=== PATIENT | male | born 1935 | race Caucasian/White ===

== ENCOUNTER → 2017-08-30 | Outpatient (CLI) | payer MEDICARE, BC ==
--- NOTE | 2017-09-01 08:17 | MR ---
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 FINDINGS: Diffusion weighted images demonstrate no evidence of a recent infarct or other diffusion ab normality. There is extensive confluent signal surrounding the ventricles as well as numerous areas diffusely th roughout the white matter bilaterally nonspecific pattern but most typical remote microvascular. Tiny areas of abnormal signal involving the basal ganglia may represent prominent Virchow-Je spaces ra ther than remote lacunar infarctions. Midline structures demonstrate normal morphology. The craniocervical junction appears within normal limits. Post contrast images demonstrate no abnormal enhancement. The dural venous sinuses appear pa tent. No cerebellopontine angle mass. No enhancing masses. Changes of chronic sinusitis noted. Nasal septal deviation noted. IMPRESSION: 1. No acute intracranial process. 2. Extensive degenerative and nonspecific white matter changes most typical of remote microvascular i schemia. 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 FINDINGS: The cranial cervical junction is preserved. There is no abnormal signal seen within the sp inal cord or paraspinal soft tissues. There is degenerative disc disease at all levels with most arpit ed findings at C5-6 and C6-C7. At C2-3 there is no disc herniation, canal stenosis or foraminal encroachment. At C3-4 there is hypertrophic change of the facets and uncovertebral joint. There is increased signal within the disc space and T1 and T2-weighted images likely benign. There is degenerative change of t he facets and uncovertebral joints with mild right-sided foraminal encroachment but no disc herniatio n or canal stenosis At C4-5 there is degenerative disc disease with facet arthropathy and uncovertebral joint hypertrophy and mild bilateral foraminal encroachment. No disc herniation or canal stenosis. At C5-6 there is severe degenerative disc disease with broad-based central disc herniation slightly g reater paracentrally the right resulting in anterior spinal cord compression. Moderate to severe righ t foraminal encroachment and mild left foraminal encroachment with uncovertebral joint hypertrophy an d facet arthropathy. At C6-7 there is central disc broad-based protrusion with moderate effacement of thecal sac but no sp inal cord contact. Facet arthropathy and uncovertebral joint projecting contribute to mild to moderat e bilateral foraminal encroachment. Severe degenerative disc disease. At C7-T1 there is uncovertebral joint hypertrophy. Disc bulging and hypertrophic changes greater far laterally the left with moderate left-sided foraminal encroachment.. IMPRESSION: 1. Multilevel severe degenerative disc disease with hypertrophic changes and disc protrusion or emmy iation C5-C6 resulting in spinal cord compression and significant bilateral foraminal encroachment. 2. Disc broad-based protrusion C6-C7 with moderate effacement of thecal sac and mild central stenosis but no evidence of cord compression. 3. Left lateral disc bulging and uncovertebral joint hypertrophy C7-T1 with moderate left-sided megan inal encroachment
== END | disposition home or self-care (01) ==
LOC: RADMRIMAIN 12:36
PROVIDERS: ATTEND Psychiatry & Neurology Neurology
DX: R90.82 White matter disease, unspecified (principal); M48.02 Spinal stenosis, cervical region; M50.223 Other cervical disc displacement at C6-C7 level; M50.321 Other cervical disc degeneration at C4-C5 level; M50.022 Cervical disc disorder at C5-C6 level with myelopathy
CPT/HCPCS: 70553; 72141; A9581

== ENCOUNTER 2017-10-06 22:35 | Observation (INO) | payer MEDICARE, BC ==
--- NOTE | 2017-10-06 23:06 | ED ---
General Adult HPI - General Chief complaint: Chest Pain Stated complaint: Chest pain Time Seen by Provider: 10/06/17 23:05 Source: patient Mode of arrival: wheelchair Limitations: no limitations - History of Present Illness Initial comments: Denzel is an 82-year-old male with a past medical history of retention, hyperlipidemia and a recent diagnosis of Parkinson's disease for which he was ordered on Sinemet. The patient presents to the emergency department today for evaluation of chest pain. Patient reports that around 10:30 PM he was sitting with his watching television when he suddenly developed a pressure in his chest, he describes it as a dull pressure in the retrosternal and left chest. He reports that the pain came on while he was sitting relaxing, it persisted for approximately 15 minutes and then over the course of one minute the pain resolved. The pain was not associated with any lightheadedness, diaphoresis, shortness of breath. The patient did not attempt to exert himself during the pain, however walking to the car and walking to the ER did not cause the pain. Patient reports that he has been in his usual state of health, he's been at his usual activity level, eating a normal diet. He has not been ill recently. He reports that his life is been pretty morning but these been feeling well. She is scheduled to follow-up with his neurologist tomorrow for reevaluation of the Sinemet. - Related Data Home Medications Medication Instructions Recorded Confirmed Hydrochlorothiazide [Hydrodiuril] 12.5 mg PO DAILY 12/25/15 10/06/17 Memantine [Namenda] 10 mg PO BID 12/25/15 10/06/17 Simvastatin [Zocor] 40 mg PO HS 12/25/15 10/06/17 Venlafaxine HCl ER [Effexor Xr] 75 mg PO HS 12/25/15 10/06/17 Esomeprazole Magnesium [NexIUM] 40 mg PO HS 01/23/16 10/06/17 Carbidopa-Levodopa 25-100 mg 1 tab PO QID 10/06/17 10/06/17 [Sinemet 25-100] Allergies Allergy/AdvReac Type Severity Reaction Status Date / Time No Known Allergies Allergy Verified 10/06/17 23:07 Review of Systems ROS Statement: Those systems with pertinent positive or pertinent negative responses have been documented in the HPI. ROS Other: All systems not noted in ROS Statement are negative. Constitutional: Denies: fever, chills Eyes: Denies: vision change ENT: Denies: throat pain Respiratory: Denies: cough, dyspnea, wheezes Cardiovascular: Reports: chest pain. Denies: palpitations, dyspnea on exertion , orthopnea, edema, syncope Endocrine: Denies: fatigue Gastrointestinal: Denies: abdominal pain, nausea, vomiting Musculoskeletal: Denies: back pain Skin: Denies: rash, lesions Neurological: Reports: other (Tremor in the left hand). Denies: headache, weakness Psychiatric: Denies: anxiety, depression Hematological/Lymphatic: Denies: easy bleeding, easy bruising Past Medical History Past Medical History: Hyperlipidemia, Osteoarthritis (OA) Additional Past Medical History / Comment(s): hiatal hernia, constipation, diverticulitis, occ rectal bleeding/blood in stool, parkinson's disease History of Any Multi-Drug Resistant Organisms: None Reported Past Surgical History: Bowel Resection, Hernia Repair, Prostate Surgery Additional Past Surgical History / Comment(s): 01/26/16 low anterior resection. Other surgical hx: EXC Sonu Cataracts. GLAUCOMA PROC. UMB HERNIA REPAIR 01/02/16. Past Anesthesia/Blood Transfusion Reactions: No Reported Reaction Past Psychological History: Depression Smoking Status: Former smoker Past Alcohol Use History: Occasional Past Drug Use History: None Reported - Past Family History Sister(s) History Unknown: Yes Family Medical History: Cancer Daughter(s) History Unknown: Yes Family Medical History: Cancer Father Family Medical History: No Reported History Additional Family Medical History / Comment(s): Father lived to be in his early 90's. General Exam Limitations: no limitations General appearance: alert, in no apparent distress Head exam: Present: atraumatic, normocephalic Eye exam: Present: normal appearance, PERRL ENT exam: Present: normal exam Neck exam: Present: normal inspection Respiratory exam: Present: normal lung sounds bilaterally Cardiovascular Exam: Present: normal rhythm, bradycardia GI/Abdominal exam: Present: soft. Absent: distended, pulsatile mass Rectal exam: Present: deferred Back exam: Present: normal inspection Neurological exam: Present: alert, oriented X3, other (tremor of hands) Psychiatric exam: Present: normal affect Skin exam: Present: warm, dry Course Vital Signs 10/06/17 10/06/17 10/07/17 22:43 23:00 00:17 Temperature 97.8 F Pulse Rate 42 L 48 L Pulse Rate [ 50 L Senior Care Assistant ] Respiratory 18 16 Rate Blood Pressure 159/78 167/81 O2 Sat by Pulse 97 98 Oximetry 10/07/17 01:14 Temperature Pulse Rate 49 L Pulse Rate [ Senior Care Assistant ] Respiratory 18 Rate Blood Pressure 158/78 O2 Sat by Pulse 97 Oximetry EKG Findings - EKG Comments: EKG Findings:: EKG at 2258, rate is 49, rhythm is sinus bradycardia with a first -degree AV block, there is a left axis deviation, FL is prolonged at 232, QTc are normal. No acute ST elevations or depressions. there is no evidence of acute ischemia or infarction. Medical Decision Making - Medical Decision Making The patient was seen and evaluated, history was obtained from the patient as well as his at bedside with no cardiac history presenting with 15 minutes of chest pressure with no associated symptoms EKG is sinus bradycardia, patient reports a history of bradycardia states that he was a runner when he was young and was always told his heart rate was very slow Blood pressure normal, Labs and imaging were ordered Chest x-ray with no acute findings Labs with the elevated CK-MB and troponin negative Heart score is 5, she has no establish cardiac care and I do feel he requires evaluation by cardiology for chest pain and bradycardia, patient is agreeable Patient placed in observation with telemetry monitoring and a consult to cardiology. - Lab Data Result diagrams: 10/06/17 23:10 10/06/17 23:10 Lab Results 10/06/17 10/06/17 10/06/17 Range/Units 23:10 23:10 23:10 WBC 6.3 (3.8-10.6) k/uL RBC 4.73 (4.30-5.90) m/uL Hgb 15.3 (13.0-17.5) gm/dL Hct 45.6 (39.0-53.0) % MCV 96.4 (80.0-100.0) fL MCH 32.2 (25.0-35.0) pg MCHC 33.4 (31.0-37.0) g/dL RDW 13.1 (11.5-15.5) % Plt Count 207 (150-450) k/uL Neutrophils % 62 % Lymphocytes % 23 % Monocytes % 9 % Eosinophils % 3 % Basophils % 1 % Neutrophils # 3.9 (1.3-7.7) k/uL Lymphocytes # 1.5 (1.0-4.8) k/uL Monocytes # 0.6 (0-1.0) k/uL Eosinophils # 0.2 (0-0.7) k/uL Basophils # 0.1 (0-0.2) k/uL PT (9.0-12.0) sec INR (<1.2) APTT (22.0-30.0) sec Sodium 139 (137-145) mmol/L Potassium 3.8 (3.5-5.1) mmol/L Chloride 102 (98-107) mmol/L Carbon Dioxide 30 (22-30) mmol/L Anion Gap 7 mmol/L BUN 16 (9-20) mg/dL Creatinine 1.10 (0.66-1.25) mg/dL Est GFR (CKD-EPI)AfAm 72 (>60 ml/min/1.73 sqM) Est GFR (CKD-EPI)NonAf 62 (>60 ml/min/1.73 sqM) Glucose 88 (74-99) mg/dL Calcium 9.5 (8.4-10.2) mg/dL Magnesium 2.0 (1.6-2.3) mg/dL Total Bilirubin 0.6 (0.2-1.3) mg/dL AST 32 (17-59) U/L ALT 27 (21-72) U/L Alkaline Phosphatase 69 (38-126) U/L Total Creatine Kinase 153 (55-170) U/L CK-MB (CK-2) 2.5 H* (0.0-2.4) ng/mL CK-MB (CK-2) Rel Index 1.6 Troponin I <0.012 (0.000-0.034) ng/mL Total Protein 6.7 (6.3-8.2) g/dL Albumin 4.1 (3.5-5.0) g/dL TSH 3.310 (0.465-4.680) mIU/L 10/06/17 Range/Units 23:10 WBC (3.8-10.6) k/uL RBC (4.30-5.90) m/uL Hgb (13.0-17.5) gm/dL Hct (39.0-53.0) % MCV (80.0-100.0) fL MCH (25.0-35.0) pg MCHC (31.0-37.0) g/dL RDW (11.5-15.5) % Plt Count (150-450) k/uL Neutrophils % % Lymphocytes % % Monocytes % % Eosinophils % % Basophils % % Neutrophils # (1.3-7.7) k/uL Lymphocytes # (1.0-4.8) k/uL Monocytes # (0-1.0) k/uL Eosinophils # (0-0.7) k/uL Basophils # (0-0.2) k/uL PT 10.5 (9.0-12.0) sec INR 1.1 (<1.2) APTT 23.8 (22.0-30.0) sec Sodium (137-145) mmol/L Potassium (3.5-5.1) mmol/L Chloride (98-107) mmol/L Carbon Dioxide (22-30) mmol/L Anion Gap mmol/L BUN (9-20) mg/dL Creatinine (0.66-1.25) mg/dL Est GFR (CKD-EPI)AfAm (>60 ml/min/1.73 sqM) Est GFR (CKD-EPI)NonAf (>60 ml/min/1.73 sqM) Glucose (74-99) mg/dL Calcium (8.4-10.2) mg/dL Magnesium (1.6-2.3) mg/dL Total Bilirubin (0.2-1.3) mg/dL AST (17-59) U/L ALT (21-72) U/L Alkaline Phosphatase (38-126) U/L Total Creatine Kinase (55-170) U/L CK-MB (CK-2) (0.0-2.4) ng/mL CK-MB (CK-2) Rel Index Troponin I (0.000-0.034) ng/mL Total Protein (6.3-8.2) g/dL Albumin (3.5-5.0) g/dL TSH (0.465-4.680) mIU/L Disposition Clinical Impression: Chest pain, Bradycardia Disposition: ADMITTED IP TO THIS [facility] Decision Time: 02:19
--- NOTE | 2017-10-06 23:36 | XR ---
EXAMINATION TYPE: XR chest 2V DATE OF EXAM: 10/06/2017 COMPARISON: NONE HISTORY: Chest pain TECHNIQUE: Frontal and lateral views of the chest are obtained. FINDINGS: There is no heart failure nor confluent pneumonic infiltrate. There is mild linear density at the lung bases. Heart size is normal. Thoracic aorta is atheromatous. IMPRESSION: Minimal scarring or subsegmental atelectasis at the lung bases. Normal heart.
[2017-10-06 23:41] LABS: INR 1.1 (<1.2); Partial Thromboplastin Time 23.8 sec (22.0-30.0); Prothrombin Time 10.5 sec (9.0-12.0)
[2017-10-06 23:42] LABS: Albumin 4.1 g/dL (3.5-5.0); Calcium 9.5 mg/dL (8.4-10.2); Potassium 3.8 mmol/L (3.5-5.1); Total Bilirubin 0.6 mg/dL (0.2-1.3); Total Protein 6.7 g/dL (6.3-8.2)
[2017-10-06 23:51] LABS: Creatine Kinase 153 U/L (55-170)
[2017-10-07 00:03] LABS: Basophils # (A) 0.1 k/uL (0-0.2); Basophils % (A) 1 %; Eosinophils # (A) 0.2 k/uL (0-0.7); Eosinophils % (A) 3 %; HCT 45.6 % (39.0-53.0); HGB 15.3 gm/dL (13.0-17.5); Lymphocytes # (A) 1.5 k/uL (1.0-4.8); Lymphocytes % (A) 23 %; MCH 32.2 pg (25.0-35.0); MCHC 33.4 g/dL (31.0-37.0); MCV 96.4 fL (80.0-100.0); Mean Platelet Volume 6.7; Monocytes # (A) 0.6 k/uL (0-1.0); Monocytes % (A) 9 %; Neutrophils # (A) 3.9 k/uL (1.3-7.7); Neutrophils % (A) 62 %; Platelet Count 207 k/uL (150-450); RBC 4.73 m/uL (4.30-5.90); RDW 13.1 % (11.5-15.5); Troponin I <0.012 ng/mL (0.000-0.034); WBC 6.3 k/uL (3.8-10.6)
[2017-10-07 00:07] LABS: Creatine Kinase MB 2.5 ng/mL (0.0-2.4)
[2017-10-07] MEDS ORDERED: NALOXONE 0.4 MG/ML 1 ML VIAL IV PRN (00:12)
--- NOTE | 2017-10-07 14:30 | P.HPIM ---
History of Present Illness This is a pleasant 82 years old male with past medical history of hyperlipidemia , osteoarthritis, hiatal hernia, dementia, constipation, diverticulitis, history of bleeding per rectum, and Parkinson disease, status post bowel resection who presents because of chest pain for 15 minutes in duration, which happened while the patient was watching TV yesterday. Its central chest pain nonradiating, pressure-like.not Associated with dyspnea and dizziness or change in urine or bowel habits. No fever Review of Systems CONSTITUTIONAL: No fever, no malaise, no fatigue. HEENT: No recent visual problems or hearing problems. Denied any sore throat. CARDIOVASCULAR: No orthopnea, PND, no palpitations, no syncope. PULMONARY: No shortness of breath, no cough, no hemoptysis. GASTROINTESTINAL: No diarrhea, no nausea, no vomiting, no abdominal pain. Normoactive bowel sounds. NEUROLOGICAL: No headaches, no weakness, no numbness. HEMATOLOGICAL: Denies any bleeding or petechiae. GENITOURINARY: Denies any burning micturition, frequency, or urgency. MUSCULOSKELETAL/RHEUMATOLOGICAL: Denies any joint pain, swelling, or any muscle pain. ENDOCRINE: Denies any polyuria or polydipsia. Past Medical History Past Medical History: Hyperlipidemia, Osteoarthritis (OA) Additional Past Medical History / Comment(s): hiatal hernia, constipation, diverticulitis, occ rectal bleeding/blood in stool, parkinson's disease History of Any Multi-Drug Resistant Organisms: None Reported Past Surgical History: Bowel Resection, Hernia Repair, Prostate Surgery Additional Past Surgical History / Comment(s): 01/26/16 low anterior resection. Other surgical hx: EXC Sonu Cataracts. GLAUCOMA PROC. UMB HERNIA REPAIR 01/02/16. Past Anesthesia/Blood Transfusion Reactions: No Reported Reaction Past Psychological History: Depression Smoking Status: Former smoker Past Alcohol Use History: Occasional Past Drug Use History: None Reported - Past Family History Sister(s) History Unknown: Yes Family Medical History: Cancer Daughter(s) History Unknown: Yes Family Medical History: Cancer Father Family Medical History: No Reported History Additional Family Medical History / Comment(s): Father lived to be in his early 90's. Medications and Allergies Home Medications Medication Instructions Recorded Confirmed Type Hydrochlorothiazide [Hydrodiuril] 12.5 mg PO DAILY 12/25/15 10/06/17 History Memantine [Namenda] 10 mg PO BID 10/03/16 07/16/18 History Simvastatin [Zocor] 40 mg PO HS 12/25/15 10/06/17 History Venlafaxine HCl ER [Effexor Xr] 75 mg PO HS 12/25/15 10/06/17 History Esomeprazole Magnesium [NexIUM] 40 mg PO HS 01/23/16 10/06/17 History Carbidopa-Levodopa 25-100 mg 1 tab PO QID 10/06/17 10/06/17 History [Sinemet 25-100] Allergies Allergy/AdvReac Type Severity Reaction Status Date / Time No Known Allergies Allergy Verified 10/06/17 23:07 Physical Exam Vitals: Vital Signs Temp Pulse Pulse Resp BP Pulse Ox 10/07/17 14:07 97.9 F 47 L 16 131/73 95 10/07/17 07:20 47 L 18 139/71 95 10/07/17 03:59 97.8 F 64 18 113/61 97 10/07/17 01:14 49 L 18 158/78 97 10/07/17 00:17 48 L 16 167/81 98 10/06/17 23:00 50 L 10/06/17 22:43 97.8 F 42 L 18 159/78 97 Intake and Output 10/06/17 10/07/17 10/07/17 22:59 06:59 14:59 Other: Weight 77.111 kg GENERAL: The patient is alert and oriented x3, not in any acute distress. Well developed, well nourished. HEENT: Pupils are round and equally reacting to light. EOMI. No scleral icterus. No conjunctival pallor. Normocephalic, atraumatic. No pharyngeal erythema. No thyromegaly. CARDIOVASCULAR: S1 and S2 present. No murmurs, rubs, or gallops. PULMONARY: Chest is clear to auscultation, no wheezing or crackles. ABDOMEN: Soft, nontender, nondistended, normoactive bowel sounds. No palpable organomegaly. MUSCULOSKELETAL: No joint swelling or deformity. EXTREMITIES: No cyanosis, clubbing, or pedal edema. NEUROLOGICAL: Gross neurological examination did not reveal any focal deficits. SKIN: No rashes. Results CBC & Chem 7: 10/06/17 23:10 10/06/17 23:10 Labs: Abnormal Lab Results - Last 24 Hours (Table) 10/06/17 Range/Units 23:10 CK-MB (CK-2) 2.5 H* (0.0-2.4) ng/mL Assessment and Plan Assessment: Chest pain syndrome, rule out coronary artery disease Parkinson disease Dementia Constipation Hypertension Hyperlipidemia Plan: Continue with the same treatment, continue symptom of treatment. Continue with aspirin which patient states is been taking for years now. Check echocardiogram and call cardiology consult. with DVT and GI prophylaxis. Further recommendation based on the clinical course
[2017-10-07] MEDS: ASPIRIN 81 MG PO SCH (18:52)
[2017-10-07] MEDS ORDERED: ATORVASTATIN 20 MG TAB PO SCH (21:00)
[2017-10-07] MEDS ORDERED: PANTOPRAZOLE 40 MG TABLET PO SCH (21:00)
[2017-10-07] MEDS ORDERED: VENLAFAXINE HCL ER 75 MG CAP PO SCH (21:00)
[2017-10-07] MEDS: HEPARIN SODIUM,PORCINE 5,000 UNIT/ML 1 ML VIAL SQ SCH (21:08)
[2017-10-07] MEDS: HYDROCHLOROTHIAZIDE 12.5 MG CAP PO SCH (21:08)
[2017-10-07] MEDS: FAMOTIDINE 20 MG/2 ML VIAL IV SCH (21:08)
[2017-10-07] MEDS: CARBIDOPA-LEVODOPA 25-100 MG 1 EACH TAB PO SCH ×2 (21:08→22:28)
[2017-10-07] MEDS: MEMANTINE 10 MG TAB PO SCH (21:08)
[2017-10-08 07:29] LABS: Basophils # (A) 0.1 k/uL (0-0.2); Basophils % (A) 1 %; Eosinophils # (A) 0.2 k/uL (0-0.7); Eosinophils % (A) 3 %; HCT 46.6 % (39.0-53.0); HGB 15.5 gm/dL (13.0-17.5); Lymphocytes # (A) 1.8 k/uL (1.0-4.8); Lymphocytes % (A) 29 %; MCH 32.7 pg (25.0-35.0); MCHC 33.3 g/dL (31.0-37.0); MCV 98.1 fL (80.0-100.0); Mean Platelet Volume 6.6; Monocytes # (A) 0.6 k/uL (0-1.0); Monocytes % (A) 10 %; Neutrophils # (A) 3.4 k/uL (1.3-7.7); Neutrophils % (A) 54 %; Platelet Count 183 k/uL (150-450); RBC 4.75 m/uL (4.30-5.90); RDW 13.5 % (11.5-15.5); WBC 6.3 k/uL (3.8-10.6)
[2017-10-08 07:46] LABS: Calcium 9.7 mg/dL (8.4-10.2); Potassium 3.9 mmol/L (3.5-5.1)
--- NOTE | 2017-10-08 09:54 | CONS ---
CONSULTATION Mr. Meng is an 82-year-old male patient who presented with abdominal pain. According to admitting physician's note, he had chest pain, but when I spoke to him he gave a clear history and pointed to a broad area in the mid abdomen. This was not associated with nausea, vomiting or diarrhea. He completely denied any chest discomfort or the pain spreading upwards into his chest, shoulders, arms, jaw. The pain lasted for about 10 minutes and has not recurred. REVIEW OF SYSTEMS: No fever, chills, or rigors. No cough or expectoration. No nausea, vomiting, or diarrhea. No hematuria or dysuria. No strokes or seizures. No skin lesions or musculoskeletal complaints. PAST HISTORY: Past history of dyslipidemia and osteoarthritis and Parkinson disease. History of rectal bleeding and bowel resection and prostate surgery. SOCIAL HISTORY: He is a former smoker. MEDICATIONS: Hydrochlorothiazide, Namenda, Zocor, carbidopa and Nexium. ALLERGIES: No known drug allergies. PHYSICAL EXAMINATION: His blood pressure upon admission was 131/73 mmHg, pulse rate in the 50s and 60s. Afebrile. Head and neck examination is normal. Heart sounds S1, S2 normal. No murmurs or gallops. No rub. Breath sounds are clear. No rhonchi, no crackles. Abdomen is soft, nontender. Extremities are warm, no edema. LABS: Labs are reviewed. Hemoglobin is normal. Electrolytes are normal. Cardiac enzymes x3 are normal. His 12-lead ECG shows sinus rhythm with a mildly prolonged KS interval, normal ST segments. IMPRESSION: Abdominal discomfort with normal cardiac enzymes and normal ECG. SUGGEST: A 2-D echo and Doppler study to assess cardiac structure and function and further medical management. Thereafter no further cardiac workup indicated at this point. He should continue hydrochlorothiazide and Zocor. Thank you for this consultation. MMODL / IJN: [id number] /
[2017-10-08] MEDS: ASPIRIN 81 MG PO SCH (10:16)
[2017-10-08] MEDS: CARBIDOPA-LEVODOPA 25-100 MG 1 EACH TAB PO SCH ×2 (10:16→14:31)
[2017-10-08] MEDS: HEPARIN SODIUM,PORCINE 5,000 UNIT/ML 1 ML VIAL SQ SCH (10:16)
[2017-10-08] MEDS: FAMOTIDINE 20 MG/2 ML VIAL IV SCH (10:17)
[2017-10-08] MEDS: MEMANTINE 10 MG TAB PO SCH (10:17)
[2017-10-08] MEDS: HYDROCHLOROTHIAZIDE 12.5 MG CAP PO SCH (10:17)
--- NOTE | 2017-10-08 16:06 | P.DS ---
Providers Date of admission: 10/07/17 00:14 Attending physician: Tawanda Moreno Consults: 10/07/17 00:13 Consult Physician Routine Consulting Provider: [facility] Consult Reason/Comments: chest pain, bradycardia Do you want consulting provider notified?: Yes, Notify in am [facility] Course: This is a pleasant 82 years old male with past medical history of hyperlipidemia , osteoarthritis, hiatal hernia, dementia, constipation, diverticulitis, history of bleeding per rectum, and Parkinson disease, status post bowel resection who presents because of chest pain for 15 minutes in duration, when I saw the patient yesterday in the emergency room he was pointing to his chest stated he has chest pain for 15 minutes, however today he is referring to his abdomen is seen in his abdomen pain was in his abdomen, then he was not sure if it was chest pain or abdominal pain. at bedside stated that yesterday he was sitting he had chest pain while today he is seen he had abdominal pain. However patient currently he denies neither chest pain no abdominal pain. And he denies pain anywhere else. No change in urine or bowel habits. No fever. No headache or abnormal weakness. Patient looks confused and history of dementia, comfort with his . He was a little bit disoriented when he was in the medical floor and he was wondering on the hallway, states he always does that because of his vascular dementia, whenever he goes to a hotel or similar facility, and that he will go back to his baseline once he is back to his home. thinks this situation is similar to his usual situation and she agrees he can be discharged home. Cardiology evaluated the patient and recommended to continue with the same treatment of hydrochlorothiazide and Zocor , he recommended an echo, however patient can be discharged and follow-up with the results with the cardiology office. Staff contacted the cardiology team office and they been informed that the office will call the patient for appointment in 2-3 weeks. at bedside was informed and she agrees. Patient was found stable and can be discharged home however he needs follow-up as an outpatient. Patient was instructed to call neck and appointment with his PCP in one week GENERAL: Patient looks confused to the surrounding, however he can make logic conversation. He is forgetful, not in any acute distress. Well developed, well nourished. HEENT: Pupils are round and equally reacting to light. EOMI. No scleral icterus. No conjunctival pallor. Normocephalic, atraumatic. No pharyngeal erythema. No thyromegaly. CARDIOVASCULAR: S1 and S2 present. No murmurs, rubs, or gallops. PULMONARY: Chest is clear to auscultation, no wheezing or crackles. ABDOMEN: Soft, nontender, nondistended, normoactive bowel sounds. No palpable organomegaly. MUSCULOSKELETAL: No joint swelling or deformity. EXTREMITIES: No cyanosis, clubbing, or pedal edema. NEUROLOGICAL: Gross neurological examination did not reveal any focal deficits. SKIN: No rashes. Time spent more than 35 minutes Plan - Discharge Summary Discharge Rx Participant: No New Discharge Prescriptions: No Action Memantine [Namenda] 10 mg PO BID Venlafaxine HCl ER [Effexor Xr] 75 mg PO HS Simvastatin [Zocor] 40 mg PO HS Hydrochlorothiazide [Hydrodiuril] 12.5 mg PO DAILY Esomeprazole Magnesium [NexIUM] 40 mg PO HS Carbidopa-Levodopa 25-100 mg [Sinemet 25-100] 1 tab PO QID Discharge Medication List Hydrochlorothiazide [Hydrodiuril] 12.5 mg PO DAILY 12/25/15 [History] Memantine [Namenda] 10 mg PO BID 12/25/15 [History] Simvastatin [Zocor] 40 mg PO HS 12/25/15 [History] Venlafaxine HCl ER [Effexor Xr] 75 mg PO HS 12/25/15 [History] Esomeprazole Magnesium [NexIUM] 40 mg PO HS 01/23/16 [History] Carbidopa-Levodopa 25-100 mg [Sinemet 25-100] 1 tab PO QID 10/06/17 [History] Follow up Appointment(s)/Referral(s): Jalen Tello MD [STAFF PHYSICIAN] - 2 Weeks (Office will call with an appointment) Geovanna Grigsby III, MD [Primary Care Provider] - 1-2 days
[2017-10-08 16:16] VITALS: BP 134/70; PULSE 47; RESP 18; TEMP 97.5
== END 2017-10-08 16:41 | disposition home or self-care (01) ==
LOC: EC 22:35 → 3OBS 10-07 00:14
PROVIDERS: ADMIT Hospitalist; ATTEND Hospitalist
DX: R07.89 Other chest pain (principal); R10.9 Unspecified abdominal pain; R00.1 Bradycardia, unspecified; I10 Essential (primary) hypertension; F01.50 Vascular dementia, unspecified severity, without behavioral disturbance, psychotic disturbance, mood disturbance, and anxiety; G20 Parkinson's disease; E78.5 Hyperlipidemia, unspecified; M19.90 Unspecified osteoarthritis, unspecified site; K59.00 Constipation, unspecified; K44.9 Diaphragmatic hernia without obstruction or gangrene; K57.90 Diverticulosis of intestine, part unspecified, without perforation or abscess without bleeding; F32.9 Major depressive disorder, single episode, unspecified; H40.9 Unspecified glaucoma; Z90.49 Acquired absence of other specified parts of digestive tract; Z98.41 Cataract extraction status, right eye; Z98.42 Cataract extraction status, left eye; Z87.891 Personal history of nicotine dependence; Z79.899 Other long term (current) drug therapy
CPT/HCPCS: 99285 ×2; 96372; 96374; 96376; 36415; 93005; 93306; 97161; 97165; 80053; 80048; 82550; 82553; 83735; 84443; 84484 ×2; 85025 ×2; 85610; 85730; 71046; G0378 ×2; J1644

== ENCOUNTER 2017-11-04 13:59 | Day surgery (SDC) | payer MEDICARE, BC ==
[2017-10-29 10:43] VITALS: BMI 26.9
[~2017-11-04 13:59] MED LIST: SODIUM CHLORIDE 0.9% 1,000 ML IV SCH; ceFAZolin IN SWFI 2 GM/20 ML SYRINGE IVP ONE
[2017-11-04] MEDS ORDERED: SODIUM CHLORIDE 0.9% 500 ML IV ONE (14:27)
[2017-11-04 14:39] VITALS: RESP 16; TEMP 98.3
[2017-11-04] MEDS ORDERED: fentaNYL (PF) 50 MCG/ML 2 ML AMP IV ONE (15:03)
[2017-11-04] MEDS ORDERED: LIDOCAINE 1% INJ 10MG/ML (20 ML MDV) SQ ONE (15:05)
--- NOTE | 2017-11-04 15:23 | P.PCN ---
Preoperative Diagnosis: Loop monitor implant Primary physicians: Dr. Grigsby Percolator Operator: Geovanny Indication: Bradycardia prolonged NH interval, dizzy spells recurrent Patient was brought to the EP lab in a fasting state. Written informed consent was obtained prior to the procedure. The left pectoral area was prepped and draped per protocol. Intravenous antibiotic was administered preoperatively. A subcutaneous Loop monitor was implanted successfully and the wound was closed per protocol. The device was programmed to detect significant norberto- arrhythmic and tachy-arrhythmic events, per protocol. Device and programming details: Bradycardia protocol Patient underwent EP procedure under conscious sedation/moderate sedation, monitoring of the level of consciousness and physiologic parameters including but not limited to vital signs and oxygenation. Patient tolerated the procedure well without any acute complications. Start time: 1504 Stop time: 1512 8 minutes Condition: stable Disposition: same day
[2017-11-04 16:33] VITALS: BP 126/82; PULSE 54
== END 2017-11-04 16:33 | disposition home or self-care (01) ==
LOC: CATHEP 13:59
PROVIDERS: ATTEND Internal Medicine Clinical Cardiac Electrophysiology
DX: I49.5 Sick sinus syndrome (principal); I44.0 Atrioventricular block, first degree; I10 Essential (primary) hypertension; E78.5 Hyperlipidemia, unspecified; I25.10 Atherosclerotic heart disease of native coronary artery without angina pectoris; F17.210 Nicotine dependence, cigarettes, uncomplicated; Z82.49 Family history of ischemic heart disease and other diseases of the circulatory system; Z79.82 Long term (current) use of aspirin; Z79.899 Other long term (current) drug therapy
CPT/HCPCS: 33282; C1764; J2001; J3010; J0690

== ENCOUNTER → 2017-12-11 | Outpatient (CLI) | payer MEDICARE, BC ==
[2017-12-11 12:13] LABS: HCT 45.1 % (39.0-53.0); HGB 14.6 gm/dL (13.0-17.5); MCH 32.2 pg (25.0-35.0); MCHC 32.4 g/dL (31.0-37.0); MCV 99.5 fL (80.0-100.0); Mean Platelet Volume 6.8; Platelet Count 206 k/uL (150-450); RBC 4.54 m/uL (4.30-5.90); WBC 5.5 k/uL (3.8-10.6)
[2017-12-12 11:24] LABS: Albumin 3.8 g/dL (3.5-5.0); Calcium 9.4 mg/dL (8.4-10.2); Total Bilirubin 1.1 mg/dL (0.2-1.3)
== END ==
LOC: LABPAT 11:28
PROVIDERS: ATTEND Internal Medicine Clinical Cardiac Electrophysiology
DX: Z01.812 Encounter for preprocedural laboratory examination (principal); I44.0 Atrioventricular block, first degree; I49.5 Sick sinus syndrome
CPT/HCPCS: 36415; 80051; 80053; 82565; 82947; 84443; 84520; 85027

== ENCOUNTER 2017-12-22 11:41 | Day surgery (SDC) | payer MEDICARE, BC ==
[2017-12-16 15:35] VITALS: BMI 26.5
[~2017-12-22 11:41] MED LIST changes: +HYDROmorphone 1 MG/ML 1 ML SYRINGE IVP PRN; +LACTATED RINGERS 1,000 ML IV SCH; +MIDAZOLAM 2 MG/2 ML VIAL IV PRN; +ceFAZolin 1,000 MG in SODIUM CHLORIDE 0.9% IRRIGATIO 250 ML IRRIGATION ONE
[2017-12-22] MEDS ORDERED: diphenhydrAMINE 50 MG/ML 1 ML VIAL ONE (12:32)
[2017-12-22] MEDS ORDERED: MIDAZOLAM 2 MG/2 ML VIAL ONE (12:32)
[2017-12-22] MEDS ORDERED: PROPOFOL 10 MG/ML 20 ML VIAL IV ONE (12:32)
[2017-12-22] MEDS ORDERED: fentaNYL (PF) 50 MCG/ML 2 ML AMP ONE (12:32)
[2017-12-22] MEDS ORDERED: hydrALAZINE HCL 20 MG/ML 1 ML VIAL ONE (12:32)
[2017-12-22] MEDS ORDERED: SODIUM CHLORIDE 0.9% 500 ML IV ONE (12:46)
[2017-12-22] MEDS ORDERED: IV FLUID CONTINUATION 900 ML IV ONE (12:46)
[2017-12-22] MEDS ORDERED: IOPAMIDOL-250 50ML BTL IV ONE (12:58)
[2017-12-22] MEDS ORDERED: LIDOCAINE 1% INJ 10MG/ML (20 ML MDV) ONE ×2 (13:12)
[2017-12-22] MEDS ORDERED: LIDOCAINE 1% INJ 10MG/ML (20 ML MDV) SQ ONE ×2 (13:17→13:18)
[2017-12-22] MEDS ORDERED: ACETAMINOPHEN TAB 325 MG TAB PO PRN (15:03)
[2017-12-22] MEDS ORDERED: HYDROcodone/APAP 5-325MG 1 EACH TAB PO PRN (15:03)
[2017-12-22] MEDS ORDERED: ACETAMINOPHEN IV (For NPO) 1,000 MG in EMPTY BAG 1 BAG IVPB ONE (16:15)
[2017-12-22] MEDS: ceFAZolin IN SWFI 2 GM/20 ML SYRINGE IVP SCH (18:25)
--- NOTE | 2017-12-22 19:43 | PCN ---
PROCEDURE NOTE Mr. Meng is an 82-year-old male patient who has dizziness and presyncope, very symptomatic with associated and documented sick sinus syndrome, AV node disease and bradycardia and pauses. This was documented on a loop monitor. He is brought in for AV sequential permanent pacing with septal physiologic pacing and removal of loop monitor. Patient was brought to the EP lab in a fasting state. Written informed consent was obtained prior to the procedure. The procedure performed with CHEMICAL STRENGTH TESTER assistance. The left pectoral area was prepped and draped as per protocol. 1% lidocaine was used for local anesthesia. A 4 cm incision was made parallel to the deltopectoral groove, about 1.5 cm medial to it. The incision was carried down to the level of the pectoralis muscle. Three venous sheaths were placed in the left axillary vein and via these 3 were positioned in the right heart. The RV lead was a Medtronic model #5076, 58 cm in length and serial number [id number], screwed in the mid RV septum. Current of protocol was followed. Pacing threshold 0.4 V at 0.5 milliseconds. Pacing impedance of 905 ohms. R-waves 9.1 mV. 10 V test negative. The right atrial lead was a Medtronic model #4574, 45 cm in length and serial number [id number]. This was positioned in the right atrial appendage. This was a passive lead. Pacing threshold 0.4 V at 0.5 milliseconds. Pacing impedance of 846 ohms, P waves 3.1 mV. The third lead was screwed in after mapping His bundle area and was screwed in. Selective pacing was noted and the thresholds were excellent at 0.4 V at 0.5 milliseconds. Pacing impedance of 625 ohms. All sheaths were removed. The leads were stable. The leads were then secured to the underlying pectoralis muscles and then connected to the biventricular pacemaker Medtronic POT ROOM SUPERVISOR-P July MRI, model #W1TR02, serial number [id number]. The leads and generator were then placed in subfascial pocket and the wound was closed in 3 layers and dressed per protocol. RESULT: Successful AV sequential physiologic septal pacing performed for symptomatic bradycardia. The device was then programmed to DDDR mode with an AV delay of 480 milliseconds (Patient's HV interval was 38 milliseconds and stem to QRS during selective pacing was 41 milliseconds). Backup RV pacing was programmed. Patient tolerated the procedure well without any acute complications. Please see explantation of the Reveal monitor dictation separately. MMODL / IJN: [id number] /
--- NOTE | 2017-12-22 19:49 | LTR ---
December 22, [address] Grigsby: I had the pleasure of seeing Denzel Meng in electrophysiology followup. Denzel underwent a permanent pacing for sick sinus syndrome and AV node disease. He has His bundle pacemaker to avoid RV pacing which could precipitate heart failure in the future. The His bundle pacing lead has extremely good thresholds. He will continue to follow up with you and we will see me again in the Device Clinic per scheduled. No changes in his medications have been made at this time. Thank you for entrusting me with the care of your patient. Warm regards. Sincerely, CLARA / GILBERTN: [id number] /
[2017-12-22] MEDS: MEMANTINE 10 MG TAB PO SCH (20:04)
[2017-12-22] MEDS ORDERED: ASPIRIN 81 MG PO SCH (21:00)
[2017-12-22] MEDS ORDERED: VENLAFAXINE HCL ER 75 MG CAP PO SCH (21:00)
[2017-12-23] MEDS: ceFAZolin IN SWFI 2 GM/20 ML SYRINGE IVP SCH ×3 (00:44→13:13)
[2017-12-23 07:48] VITALS: PULSE 55; RESP 18
--- NOTE | 2017-12-23 08:36 | XR ---
EXAMINATION TYPE: XR chest 2V DATE OF EXAM: 12/23/2017 COMPARISON: 10/06/2017 TECHNIQUE: PA and lateral views submitted. HISTORY: Lead placement check FINDINGS: Ectasia of the aorta with atherosclerotic changes. There is a multilead pacemaker. No sizable pneumot horax. No overt failure. Subsegmental changes at the lung bases appear chronic likely related atelect asis. Hypertrophic and degenerative changes of the spine. IMPRESSION: 1. Pacemaker placement
[2017-12-23] MEDS: MEMANTINE 10 MG TAB PO SCH (08:57)
[2017-12-23] MEDS ORDERED: ATORVASTATIN 40 MG TAB PO SCH (09:00)
[2017-12-23] MEDS ORDERED: CARBIDOPA-LEVODOPA 25-100 MG 1 EACH TAB PO SCH (09:00)
[2017-12-23] MEDS ORDERED: HYDROCHLOROTHIAZIDE 12.5 MG CAP PO SCH (09:00)
[2017-12-23 11:34] VITALS: BP 148/85; TEMP 98.3
--- NOTE | 2017-12-23 13:32 | P.DS ---
Providers Attending physician: Jalen Tello Primary care physician: [facility] Course: Patient is doing well. There is a very small hematoma at the pacemaker site with mild bruising no pain Breath sounds are clear Heart sounds are normal Abdomen soft No edema over the extremities Impression Symptomatic sick sinus syndrome and AV node disease status post AV sequential pacing with physiologic septal pacing/biventricular pacemaker device Plan Discharge home after completion of IV antibiotics and follow Dr. Small end 2- 3 months and follow-up in the device clinic in 5 days Plan - Discharge Summary Discharge Rx Participant: Yes New Discharge Prescriptions: Continue Memantine [Namenda] 10 mg PO BID Venlafaxine HCl ER [Effexor XR] 75 mg PO HS Esomeprazole Magnesium [NexIUM] 40 mg PO HS Carbidopa-Levodopa 25-100 mg [Sinemet 25-100 mg] 2 tab PO 0900,1400 Atorvastatin [Lipitor] 40 mg PO DAILY Hydrochlorothiazide 12.5 mg PO DAILY Aspirin 81 mg PO HS Discharge Medication List Memantine [Namenda] 10 mg PO BID 12/25/15 [History] Venlafaxine HCl ER [Effexor XR] 75 mg PO HS 12/25/15 [History] Esomeprazole Magnesium [NexIUM] 40 mg PO HS 01/23/16 [History] Carbidopa-Levodopa 25-100 mg [Sinemet 25-100 mg] 2 tab PO 0900,1400 10/06/17 [ History] Atorvastatin [Lipitor] 40 mg PO DAILY 10/29/17 [History] Hydrochlorothiazide 12.5 mg PO DAILY 10/29/17 [History] Aspirin 81 mg PO HS 11/04/17 [History] Follow up Appointment(s)/Referral(s): Jalen Tello MD [STAFF PHYSICIAN] - 1 Week (Appointment made for device check on Jan.01 at 2:30pm. Office will call with follow up appointment.) Patient Instructions/Handouts: Pacemaker (GEN) Activity/Diet/Wound Care/Special Instructions: PATIENT EDUCATION MATERIAL Instructions following a heart rhythm device implant. 1. Keep dressing DRY for 5 DAYS. You may cover the area with Saran or Cling Wrap, prior to a shower. 2. The dressing will be removed in the Device Clinic at [facility]. Absorbable sutures were used to close the wound. 3. Avoid raising the left arm above the shoulder level. 4 week restriction 4. Avoid arm movements, like backscratching, rubbing the head, or pulling on a cord. 4 weeks restriction 5. Gentle range of motion movements of the shoulder, closest to the incision should be performed to avoid a frozen shoulder. (Pendulum exercises of the shoulder) 6. The opposite arm may be used freely. 7. Avoid driving for 7 days. 8. Avoid activities such as golfing, swimming, weed whacking, lifting more than 10 pounds weight, bowling, gymnastics and weight training/lifting. (6 weeks restriction) 9. Activities such as wood chopping with an axe, pull-ups in the gymnasium, power lifting, arc-welding, being close to home induction cooktops will always be a problem. 10. Arm sling is only a reminder not to raise the arm above the head. You do not need to keep the arm completely immobilized. Your free to move the arm and use it and for normal activities. In case of any problems, please call [facility], [place], @ [phone], Attention: Device Clinic Device clinic follow-up in 5 days Follow-up with primary plug wirer in 2-3 months Discharge Disposition: HOME SELF-CARE
--- NOTE | 2017-12-24 08:46 | P.PCN ---
Preoperative Diagnosis: Loop explant under MAC Patient was brought to the EP lab in a fasting state. Written informed consent was obtained prior to the procedure. The subcutaneous device was successfully explanted under local anesthesia. Preoperative antibiotics were administered. The wound was closed in layers and dressed per protocol. Result: Successful loop monitor explantation.
== END 2017-12-23 14:35 | disposition home or self-care (01) ==
LOC: CATHEP 11:41 → 3OBS 14:55 → CATHEP 12-23 14:35
PROVIDERS: ATTEND Internal Medicine Clinical Cardiac Electrophysiology
DX: I49.5 Sick sinus syndrome (principal); I10 Essential (primary) hypertension; E78.5 Hyperlipidemia, unspecified; I44.0 Atrioventricular block, first degree; I25.10 Atherosclerotic heart disease of native coronary artery without angina pectoris; G20 Parkinson's disease; K21.9 Gastro-esophageal reflux disease without esophagitis; Z79.82 Long term (current) use of aspirin; Z79.899 Other long term (current) drug therapy; Z82.49 Family history of ischemic heart disease and other diseases of the circulatory system
CPT/HCPCS: 33225; 33208; 33284; 71046; C1769 ×4; C1892; C1898 ×2; C2621; J2001; J0131; J0690 ×2; Q9966

== ENCOUNTER → 2019-08-23 | Outpatient (CLI) | payer MEDICARE, BC ==
[2019-08-23 14:39] LABS: Appearance,Urine Clear (Clear); Basophils # (A) 0.1 k/uL (0-0.2); Basophils % (A) 1 %; Bilirubin,Urine Negative (Negative); Blood,Urine Negative (Negative); Color,Urine Yellow; Eosinophils # (A) 0.2 k/uL (0-0.7); Eosinophils % (A) 4 %; Glucose,Urine (UA) Negative (Negative); HGB 15.3 gm/dL (13.0-17.5); Ketones,Urine Negative (Negative); Leukocyte Esterase,Urine Negative (Negative); Lymphocytes # (A) 1.5 k/uL (1.0-4.8); Lymphocytes % (A) 27 %; MCH 34.3 pg (25.0-35.0); MCHC 33.3 g/dL (31.0-37.0); MCV 102.8 fL (80.0-100.0); Macrocytosis Slight; Mean Platelet Volume 7.3; Monocytes # (A) 0.5 k/uL (0-1.0); Monocytes % (A) 9 %; Neutrophils # (A) 3.2 k/uL (1.3-7.7); Neutrophils % (A) 58 %; Nitrite,Urine Negative (Negative); Platelet Count 207 k/uL (150-450); Protein,Urine Negative (Negative); RBC 4.47 m/uL (4.30-5.90); RDW 13.2 % (11.5-15.5); Urobilinogen,Urine <2.0 mg/dL (<2.0); WBC 5.5 k/uL (3.8-10.6)
[2019-08-23 20:35] LABS: Albumin 4.3 g/dL (3.80-4.90); Albumin/Globulin Ratio 2.05 (1.60-3.17); BUN/Creat Ratio 18.33 Ratio (12.00-20.00); Calcium 9.3 mg/dL (8.7-10.3); Globulin 2.1 g/dL (1.6-3.3); Non-African American GFR(CKD) 55.2 (60.0-200.0); Total Bilirubin 0.9 mg/dL (0.2-1.2); Total Protein 6.4 g/dL (6.2-8.2)
== END | disposition home or self-care (01) ==
LOC: LABWHC1 13:45
PROVIDERS: ATTEND Psychiatry & Neurology Neurology
DX: R41.0 Disorientation, unspecified (principal); G20 Parkinson's disease
CPT/HCPCS: 36415; 80053; 81003; 85025; 87086

== ENCOUNTER 2019-11-04 19:44 | Observation (INO) | payer MEDICARE, BC ==
[2019-11-04] MEDS ORDERED: SODIUM CHLORIDE 0.9% 1,000 ML IV STA (20:15)
--- NOTE | 2019-11-04 20:16 | ED ---
Neuro HPI - General Chief Complaint: Neuro Symptoms/Deficit Stated Complaint: Sent from primary - possible TIA Time Seen by Provider: 11/04/19 19:51 Source: patient, family, RN notes reviewed, old records reviewed Mode of arrival: wheelchair Limitations: no limitations - History of Present Illness Is the patient presenting with stroke symptoms?: No -: minutes(s) Initial Comments: This is a 84-year-old male DF for evaluation of several from some mild dementia so his history of present illness and colitis due to history is limited. Patient without complaint currently he did have an episode of slurred speech with weakness which was noted at that her there also was some facial droop left- sided. Patient's is at bedside he states symptoms resolved pretty quickly and again the patient has not baseline Location: speech, left face, altered, other (All symptoms resolved) History of same: No Place: home Severity: moderate Improves With: time Worsens With: none On Anticoagulants: No Associated Symptoms: confusion, malaise Treatments Prior to Arrival: none - Related Data Home Medications: Home Medications Medication Instructions Recorded Confirmed Memantine [Namenda] 10 mg PO BID@999,199912/25/15 11/04/19 Venlafaxine HCl ER [Effexor XR] 75 mg PO HS@199912/25/15 11/04/19 Esomeprazole Magnesium [NexIUM] 40 mg PO HS@199901/23/16 11/04/19 Carbidopa-Levodopa 25-100 mg 2 tab PO BID@1000,1400 10/06/17 11/04/19 [Sinemet 25-100 mg] Atorvastatin [Lipitor] 40 mg PO HS@199910/29/17 11/04/19 Hydrochlorothiazide 12.5 mg PO DAILY@1000 10/29/17 11/04/19 [hydroCHLOROthiazide] Aspirin 81 mg PO HS@199911/04/17 11/04/19 QUEtiapine FUMARATE [SEROquel] 25 mg PO HS@199911/04/19 11/04/19 Allergies/Adverse Reactions: Allergies Allergy/AdvReac Type Severity Reaction Status Date / Time No Known Allergies Allergy Verified 11/04/19 22:09 Review of Systems ROS Statement: Those systems with pertinent positive or pertinent negative responses have been documented in the HPI. ROS Other: All systems not noted in ROS Statement are negative. General Exam Limitations: no limitations General appearance: alert, in no apparent distress Head exam: Present: atraumatic, normocephalic, normal inspection Eye exam: Present: normal appearance, PERRL, EOMI. Absent: scleral icterus, conjunctival injection, periorbital swelling ENT exam: Present: normal exam, mucous membranes moist Neck exam: Present: normal inspection. Absent: tenderness, meningismus, lymphadenopathy Respiratory exam: Present: normal lung sounds bilaterally. Absent: respiratory distress, wheezes, rales, rhonchi, stridor Cardiovascular Exam: Present: regular rate, normal rhythm, normal heart sounds. Absent: systolic murmur, diastolic murmur, rubs, gallop, clicks GI/Abdominal exam: Present: soft, normal bowel sounds. Absent: distended, tenderness, guarding, rebound, rigid Extremities exam: Present: normal inspection, full ROM, normal capillary refill. Absent: tenderness, pedal edema, joint swelling, calf tenderness Back exam: Present: normal inspection Neurological exam: Present: alert, oriented X3, CN II-XII intact Psychiatric exam: Present: normal affect, normal mood Skin exam: Present: warm, dry, intact, normal color. Absent: rash Stroke MDM - Lab Data Result diagrams: 11/04/19 20:24 11/04/19 20:24 Lab Results 11/04/19 11/04/19 11/04/19 Range/Units 20:24 20:24 20:24 WBC 6.5 (3.8-10.6) k/uL RBC 4.70 (4.30-5.90) m/uL Hgb 14.7 (13.0-17.5) gm/dL Hct 46.6 (39.0-53.0) % MCV 99.0 (80.0-100.0) fL MCH 31.2 (25.0-35.0) pg MCHC 31.5 (31.0-37.0) g/dL RDW 12.9 (11.5-15.5) % Plt Count 193 (150-450) k/uL Neutrophils % 58 % Lymphocytes % 25 % Monocytes % 9 % Eosinophils % 3 % Basophils % 1 % Neutrophils # 3.8 (1.3-7.7) k/uL Lymphocytes # 1.6 (1.0-4.8) k/uL Monocytes # 0.6 (0-1.0) k/uL Eosinophils # 0.2 (0-0.7) k/uL Basophils # 0.1 (0-0.2) k/uL PT 10.6 (9.0-12.0) sec INR 1.0 (<1.2) APTT 23.8 (22.0-30.0) sec Sodium 138 (137-145) mmol/L Potassium 4.0 (3.5-5.1) mmol/L Chloride 103 (98-107) mmol/L Carbon Dioxide 27 (22-30) mmol/L Anion Gap 8 mmol/L BUN 19 (9-20) mg/dL Creatinine 1.34 H (0.66-1.25) mg/dL Est GFR (CKD-EPI)AfAm 56 (>60 ml/min/1.73 sqM) Est GFR (CKD-EPI)NonAf 48 (>60 ml/min/1.73 sqM) Glucose 67 L (74-99) mg/dL Calcium 10.1 (8.4-10.2) mg/dL Total Bilirubin 1.1 (0.2-1.3) mg/dL AST 34 (17-59) U/L ALT 8 (4-49) U/L Alkaline Phosphatase 82 (38-126) U/L Creatine Kinase 106 (55-170) U/L Troponin I (0.000-0.034) ng/mL Total Protein 7.2 (6.3-8.2) g/dL Albumin 4.4 (3.5-5.0) g/dL 11/04/19 Range/Units 20:24 WBC (3.8-10.6) k/uL RBC (4.30-5.90) m/uL Hgb (13.0-17.5) gm/dL Hct (39.0-53.0) % MCV (80.0-100.0) fL MCH (25.0-35.0) pg MCHC (31.0-37.0) g/dL RDW (11.5-15.5) % Plt Count (150-450) k/uL Neutrophils % % Lymphocytes % % Monocytes % % Eosinophils % % Basophils % % Neutrophils # (1.3-7.7) k/uL Lymphocytes # (1.0-4.8) k/uL Monocytes # (0-1.0) k/uL Eosinophils # (0-0.7) k/uL Basophils # (0-0.2) k/uL PT (9.0-12.0) sec INR (<1.2) APTT (22.0-30.0) sec Sodium (137-145) mmol/L Potassium (3.5-5.1) mmol/L Chloride (98-107) mmol/L Carbon Dioxide (22-30) mmol/L Anion Gap mmol/L BUN (9-20) mg/dL Creatinine (0.66-1.25) mg/dL Est GFR (CKD-EPI)AfAm (>60 ml/min/1.73 sqM) Est GFR (CKD-EPI)NonAf (>60 ml/min/1.73 sqM) Glucose (74-99) mg/dL Calcium (8.4-10.2) mg/dL Total Bilirubin (0.2-1.3) mg/dL AST (17-59) U/L ALT (4-49) U/L Alkaline Phosphatase (38-126) U/L Creatine Kinase (55-170) U/L Troponin I <0.012 (0.000-0.034) ng/mL Total Protein (6.3-8.2) g/dL Albumin (3.5-5.0) g/dL - NIH Stroke Scale 1a. Level of Consciousness: (0) alert 1b. LOC Questions: (0) answers correctly 1c. LOC Commands: (0) performs tasks correctly 2. Best Gaze: (0) normal 3. Visual: (0) no visual loss 4. Facial Palsy: (0) normal symmetrical movement 5a. Motor Arm Left: (0) no drift 5b. Motor Arm Right: (0) no drift 6a. Motor Leg Left: (0) no drift 6b. Motor Leg Right: (0) no drift 7. Limb Ataxia: (0) absent 8. Sensory: (0) normal 9. Best Language: (0) no aphasia 10. Dysarthria: (0) normal 11. Extinction/Inattention: (0) no abnormality - Thrombolytic Inclusion/Exclusion Thrombolytic Contraindications: Risks Outweigh Benefits, Stroke Too Mild (Patient is without any neurological symptoms) - Medical Decision Making 84 male DF with TIA symptoms neurological symptoms resolved slurred speech prior to arrival this happened during dinner tonight. Symptoms remain resolved throughout ER stay and patient will be admitted for neurology to evaluate - Radiology Data Radiology results: report reviewed (CT brain CT had neck is negative for significant acute disease), image reviewed Past Medical History Past Medical History: Cancer, Dementia, Eye Disorder, GERD/Reflux, Musculoskeletal Disorder, Neurologic Disorder, Osteoarthritis (OA) Additional Past Medical History / Comment(s): See Dr Tello H&P parkinson's newly diagnosed, hiatal hernia, constipation, diverticulitis with bowel resection and post op ileus, lower GI bleed with acute blood loss anemia, prostate cancer, 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 History of Any Multi-Drug Resistant Organisms: None Reported Past Surgical History: Bowel Resection, Hernia Repair, Prostate Surgery Additional Past Surgical History / Comment(s): 01/26/16 low anterior resection, prostatectomy, umbilical hernia repair and inguinal hernia repair EGD/colonoscopies/polypectomy, bilateral cataract removals, bilateral procedures for glaucoma. Past Anesthesia/Blood Transfusion Reactions: No Reported Reaction Additional Past Anesthesia/Blood Transfusion Reaction / Comment(s): Pt has received blood in past without reaction. Past Psychological History: Anxiety, Depression Smoking Status: Never smoker Past Alcohol Use History: Rare Past Drug Use History: None Reported - Past Family History Sister(s) History Unknown: Yes Family Medical History: Cancer Additional Family Medical History / Comment(s): Breast cancer. Daughter(s) History Unknown: Yes Family Medical History: Cancer Additional Family Medical History / Comment(s): Breast cancer Father Family Medical History: No Reported History Additional Family Medical History / Comment(s): Father lived to be in his early 90's. Course Vital Signs 11/04/19 11/04/19 11/04/19 19:45 20:00 20:15 Temperature 98.7 F Pulse Rate 74 60 59 L Respiratory 18 18 17 Rate Blood Pressure 112/70 114/64 119/72 O2 Sat by Pulse 96 98 98 Oximetry - Reevaluation(s) Reevaluation #1: 11/04/19 22:32 Medical record is reviewed Reevaluation #2: 11/04/19 22:32 No recurrent neurological symptoms Disposition Clinical Impression: Transient cerebral ischemia Disposition: ADMITTED IP TO THIS HOSP Condition: Fair Is patient prescribed a controlled substance at d/c from ED?: No Referrals: Geovanna Grigsby III, MD [Primary Care Provider] - 1-2 days
[2019-11-04 20:34] LABS: Basophils # (A) 0.1 k/uL (0-0.2); Basophils % (A) 1 %; Eosinophils # (A) 0.2 k/uL (0-0.7); Eosinophils % (A) 3 %; HCT 46.6 % (39.0-53.0); HGB 14.7 gm/dL (13.0-17.5); Lymphocytes # (A) 1.6 k/uL (1.0-4.8); Lymphocytes % (A) 25 %; MCH 31.2 pg (25.0-35.0); MCHC 31.5 g/dL (31.0-37.0); Mean Platelet Volume 7.2; Monocytes # (A) 0.6 k/uL (0-1.0); Monocytes % (A) 9 %; Neutrophils # (A) 3.8 k/uL (1.3-7.7); Neutrophils % (A) 58 %; Platelet Count 193 k/uL (150-450); RDW 12.9 % (11.5-15.5); WBC 6.5 k/uL (3.8-10.6)
[2019-11-04 20:45] LABS: Partial Thromboplastin Time 23.8 sec (22.0-30.0); Prothrombin Time 10.6 sec (9.0-12.0)
[2019-11-04 20:46] LABS: Albumin 4.4 g/dL (3.5-5.0); Calcium 10.1 mg/dL (8.4-10.2); Total Bilirubin 1.1 mg/dL (0.2-1.3); Total Protein 7.2 g/dL (6.3-8.2)
--- NOTE | 2019-11-04 21:10 | CT ---
EXAMINATION TYPE: CT brain wo con for TPA DATE OF EXAM: 11/04/2019 COMPARISON: 10/24/2014 HISTORY: Neuro deficits, stroke suspected. Pt sent here from [facility]. Pt stated his BP was elevated. CT DLP: 1204.8 mGycm Automated exposure control for dose reduction was used. There is cerebral cortical atrophy. There is moderate patchy hypodensity in the periventricular white matter. There is no mass effect nor midline shift. There is no sign of intracranial hemorrhage. The calvarium is intact. IMPRESSION: Cerebral atrophy and chronic small vessel ischemia. No acute intracranial abnormality. No sign of acu te cortical infarct. No change.
--- NOTE | 2019-11-04 21:15 | XR ---
EXAMINATION TYPE: XR chest 2V DATE OF EXAM: 11/04/2019 COMPARISON: December 23, 2017 HISTORY: Acute mental status TECHNIQUE: 2 views FINDINGS: There is no heart failure nor confluent pneumonic infiltrate. Costophrenic angles are clear . There are no hilar masses. Heart size is normal. There is a left axillary pacemaker. There are ches t leads. IMPRESSION: No active cardiopulmonary disease. There is clearing of the atelectasis at the lung bases compared to old exam.
--- NOTE | 2019-11-04 22:26 | CT ---
EXAMINATION TYPE: CT angio head neck DATE OF EXAM: 11/04/2019 COMPARISON: None HISTORY: Neuro deficits, stroke suspected. Pt sent here from [facility]. Pt stated his BP was elevated. CT DLP: 1204.8 mGycm Automated exposure control for dose reduction was used. CONTRAST: Performed with IV Contrast, patient injected with 65 mL of Isovue 370. Images were obtained from the aortic arch to the vertex of the brain with IV contrast. There are 3-D post processed images. FINDINGS: There is normal branching pattern of the great vessels on the aortic arch. There is bilateral arteria l flow in the subclavian arteries. There is bilateral arterial flow in the vertebral arteries. There is large amount of contrast in the veins of the neck posteriorly. I do not see evidence of blockage o f the venous drainage in the mediastinum. There is wide patency of the superior vena cava. There is v enous drainage in the azygos vein. The possibility of inferior vena cava obstruction should be consid ered. There is arterial flow in the common internal and external carotid arteries bilaterally. I see no guille dence of any significant stenosis of the carotid arteries. There is mild plaque formation at the barrientos tid artery bifurcations and less than 15% stenosis. There is arterial flow in the anterior middle and posterior cerebral arteries. There is arterial flow in the vertebrobasilar artery system. I see no evidence of intracranial arterial stenosis. There is no mass effect. There is no evidence of intracranial aneurysm or neovascularity. There is normal cont rast opacification of the venous sinuses. IMPRESSION: Minimal plaque at the carotid artery bifurcations. No evidence of hemodynamic stenosis. No evidence o f arterial aneurysm or dissection. Significant venous drainage in the posterior neck could relate to some collateral drainage from infer ior vena cava obstruction.
[2019-11-04] MEDS ORDERED: ASPIRIN 325 MG TAB PO STA (22:31)
[2019-11-05 02:30] LABS: Glucose,Whole Blood 97 mg/dL (75-99)
[2019-11-05 02:36] LABS: Cholesterol 173 mg/dL (<200); HDL Cholesterol 53 mg/dL (40-60); LDL Cholesterol,Calculated 83 mg/dL (0-99); Triglycerides 184 mg/dL (<150)
[2019-11-05] MEDS: SODIUM CHLORIDE 0.9% 1,000 ML IV SCH ×2 (02:36→16:38)
--- NOTE | 2019-11-05 09:37 | P.HPIM ---
History of Present Illness This is a pleasant 84 years old male with past medical history of dementia, GERD, musculoskeletal disorder, osteoarthritis, Parkinson disease, diverticulitis, lower GI bleed, prostate cancer, bilateral glaucoma. He has history of bradycardia status post pacemaker. Patient is poor historian, at bedside and states that he was having dinner last night when the he had slow speech and drooling on his left side of the mouth with confusion that lasted for about 5 minutes but he is back to his normal state in 1-2 hours. No weakness or numbness noticed in either side however he has Parkinson disease with resting tremor in his left hand. He has a sitter at bedside because there was risk of falling overnight Patient himself is confused to time place and person however he knows his at bedside. He denies any complaints. In the emergency room his heart rate was as low as 39 Vital signs stable, he has mild bradycardia at 53-55. Labs are unremarkable including CBC, BMP, liver enzymes, INR except for mildly elevated creatinine at 1.34, baseline 1.0-1.2 EKG showing normal sinus rhythm at 62 with first degree heart block with PVC. And QTC 424, no significant ST-T changes. Inverted T waves. Chest x-ray: No acute process. CTA of the brain no significant hemodynamic stenosis and no evidence of arterial aneurysm or dissection. CT of the brain: No acute process. Atrophic changes Review of Systems CONSTITUTIONAL: No fever, no malaise, no fatigue. HEENT: No recent visual problems or hearing problems. Denied any sore throat. CARDIOVASCULAR: No orthopnea, PND, no palpitations, no syncope. PULMONARY: No shortness of breath, no cough, no hemoptysis. GASTROINTESTINAL: No diarrhea, no nausea, no vomiting, no abdominal pain. Normoactive bowel sounds. NEUROLOGICAL: No headaches, no weakness, no numbness. HEMATOLOGICAL: Denies any bleeding or petechiae. GENITOURINARY: Denies any burning micturition, frequency, or urgency. MUSCULOSKELETAL/RHEUMATOLOGICAL: Denies any joint pain, swelling, or any muscle pain. ENDOCRINE: Denies any polyuria or polydipsia. 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 History of Any Multi-Drug Resistant Organisms: None Reported Past Surgical History: Bowel Resection, Hernia Repair, Prostate Surgery Additional Past Surgical History / Comment(s): 01/26/16 low anterior resection, prostatectomy, umbilical hernia repair and inguinal hernia repair EGD/colonoscopies/polypectomy, bilateral cataract removals, bilateral procedures for glaucoma. Past Anesthesia/Blood Transfusion Reactions: No Reported Reaction Additional Past Anesthesia/Blood Transfusion Reaction / Comment(s): Pt has received blood in past without reaction. Past Psychological History: Anxiety, Depression Additional Psychological History / Comment(s): has vascular dementia. Smoking Status: Unknown if ever smoked Past Alcohol Use History: Rare Additional Past Alcohol Use History / Comment(s): Pt started smoking in 1946 and quit in 1985. smoked 1ppd Past Drug Use History: None Reported - Past Family History Sister(s) History Unknown: Yes Family Medical History: Cancer Additional Family Medical History / Comment(s): Breast cancer. Daughter(s) History Unknown: Yes Family Medical History: Cancer Additional Family Medical History / Comment(s): Breast cancer Father Family Medical History: No Reported History Additional Family Medical History / Comment(s): Father lived to be in his early 90's. Medications and Allergies Home Medications Medication Instructions Recorded Confirmed Type Memantine [Namenda] 10 mg PO BID@1000,199912/25/15 11/04/19 History Venlafaxine HCl ER [Effexor XR] 75 mg PO HS@199912/25/15 11/04/19 History Esomeprazole Magnesium [NexIUM] 40 mg PO HS@199901/23/16 11/04/19 History Carbidopa-Levodopa 25-100 mg 2 tab PO BID@1000,1400 10/06/17 11/04/19 History [Sinemet 25-100 mg] Atorvastatin [Lipitor] 40 mg PO HS@199910/29/17 11/04/19 History Hydrochlorothiazide 12.5 mg PO DAILY@1000 10/29/17 11/04/19 History [hydroCHLOROthiazide] Aspirin 81 mg PO HS@199911/04/17 11/04/19 History QUEtiapine FUMARATE [SEROquel] 25 mg PO HS@199911/04/19 11/04/19 History Allergies Allergy/AdvReac Type Severity Reaction Status Date / Time No Known Allergies Allergy Verified 11/04/19 22:09 Physical Exam Vitals: Vital Signs Temp Pulse Pulse Resp BP BP Pulse Ox 11/05/19 08:00 98 F 53 L 16 154/64 96 11/05/19 03:58 98.1 F 55 L 18 165/70 98 11/05/19 02:00 50 L 17 163/85 94 L 11/04/19 20:15 59 L 17 119/72 98 11/04/19 20:00 60 18 114/64 98 11/04/19 19:45 98.7 F 74 18 112/70 96 Intake and Output 11/04/19 11/05/19 11/05/19 22:59 06:59 14:59 Other: Voiding Method Toilet # Voids 2 Weight 79.379 kg 77.8 kg 77.8 kg -GENERAL: The patient is alert and disoriented to time place and person at baseline, not in any acute distress. Well developed, well nourished. HEENT: Pupils are round and equally reacting to light. EOMI. No scleral icterus. No conjunctival pallor. Normocephalic, atraumatic. No pharyngeal erythema. No thyromegaly. CARDIOVASCULAR: S1 and S2 present. No murmurs, rubs, or gallops. PULMONARY: Chest is clear to auscultation, no wheezing or crackles. ABDOMEN: Soft, nontender, nondistended, normoactive bowel sounds. No palpable organomegaly. MUSCULOSKELETAL: No joint swelling or deformity. EXTREMITIES: No cyanosis, clubbing, or pedal edema. NEUROLOGICAL: Gross neurological examination did not reveal any focal deficits. SKIN: No rashes. No petechiae Results CBC & Chem 7: 11/04/19 20:24 11/04/19 20:24 Labs: Abnormal Lab Results - Last 24 Hours (Table) 11/04/19 11/05/19 Range/Units 20:24 02:00 Creatinine 1.34 H (0.66-1.25) mg/dL Glucose 67 L (74-99) mg/dL Triglycerides 184 H (<150) mg/dL Thrombosis Risk Factor Assmnt - Choose All That Apply Each Risk Factor Represents 3 Points: Age 75 years or older Thrombosis Risk Factor Assessment Total Risk Factor Score: 3 Thrombosis Risk Factor Assessment Level: Moderate Risk Assessment and Plan Assessment: TIA Bradycardia, status post pacemaker Dementia GERD Osteoarthritis, Parkinson disease History of diverticulitis and diverticulosis status post bowel resection History of lower GI bleed Prostate cancer Bilateral glaucoma Anxiety/depression. No connective tissue Plan: This is a pleasant 84 years old male who presents with TIA. Continue with as pirin. Neurology consult. Swallow evaluation. Also, cardiology evaluation in view of his bradycardia. Check TSH and B12 Labs and medication were reviewed.. Continue same treatment. Continue with symptomatic treatment. Resume home medication. Monitor lytes and vitals. DVT and GI prophylaxis. Further recommendations of the clinical course of the patient DVT prophylaxis: Subcutaneous heparin GI Prophylaxis: Pepcid PT/OT: Pending Prognosis is guarded
[2019-11-05] MEDS ORDERED: hydroCHLOROthiazide 12.5 MG CAP PO SCH (10:00)
[2019-11-05] MEDS ORDERED: MEMANTINE 10 MG TAB PO SCH (10:00)
--- NOTE | 2019-11-05 10:00 | ECHOF ---
Referral Reason:Thrombus MEASUREMENTS -------- HEIGHT: 177.8 cm WEIGHT: 77.6 kg BP: RVIDd: 2.7 cm (< 3.3) IVSd: 1.1 cm (0.6 - 1.1) LVIDd: 4.1 cm (3.9 - 5.3) LVPWd: 1.2 cm (0.6 - 1.1) EDV(Teich): 76 ml IVSs: 1.2 cm LVIDs: 3.7 cm LVPWs: 1.4 cm %IVS Thck: 4 % ESV(Teich): 57 ml EF(Teich): 25 % %FS: 11 % SV(Teich): 19 ml LALs A4C: 5.5 cm LAAs A4C: 18.8 cm LAESV A-L A4C: 54 ml LAESV MOD A4C: 52 ml LALs A2C: 6.6 cm LAAs A2C: 21.6 cm LAESV A-L A2C: 60 ml LAESV MOD A2C: 57 ml LAESV(A-L): 63 ml LAESV Index (A-L): 32.07 ml/m Ao Diam: 2.9 cm (2.0 - 3.7) AV Cusp: 1.7 cm (1.5 - 2.6) MV EXCURSION: 17.354 mm (> 18.000) MV EF SLOPE: 90 mm/s (70 - 150) EPSS: 0.4 cm MV E Agustin: 0.51 m/s MV DecT: 154 ms MV Dec Deuel: 3.3 m/s MV A Agustin: 0.61 m/s MV E/A Ratio: 0.83 MV PHT: 45 ms TR Vmax: 3.27 m/s TR maxP.69 mmHg RAP: 5.00 mmHg RVSP: 47.69 mmHg FINDINGS -------- Paced rhythm. This was a technically good study. LV size, wall thickness and systolic function are normal, with an EF greater than 55%. The left jackelyn tricular size is normal. The right ventricular wall thickness is normal measuring < 5mm. The left atrium is moderately dilated. LA is moderately dilated 34-39 ml/m2 The right atrial size is normal. There is mild aortic valve sclerosis. There is mild aortic regurgitation. Mild mitral annular calcification present. Mild mitral regurgitation is present. Mild tricuspid regurgitation present. There is moderate pulmonary hypertension. There is no pulmonic regurgitation present. The aortic root size is normal. There is no pericardial effusion. CONCLUSIONS -------- 1. LV size, wall thickness and systolic function are normal, with an EF greater than 55%. 2. The left ventricular size is normal. 3. The right ventricular wall thickness is normal measuring < 5mm. 4. The left atrium is moderately dilated. 5. LA is moderately dilated 34-39 ml/m2 6. The right atrial size is normal. 7. There is mild aortic valve sclerosis. 8. There is mild aortic regurgitation. 9. Mild mitral annular calcification present. 10. Mild mitral regurgitation is present. 11. Mild tricuspid regurgitation present. 12. There is moderate pulmonary hypertension. BUILDING ADMIN: Rosemary Jenkins RDCS
--- NOTE | 2019-11-05 10:34 | P.CNNES ---
History of Present Illness Consult date: 11/05/19 Requesting physician: Demetrius Bazzi Reason for Consult: Transient ischemic attack History of Present Illness: History was obtained from the patient who was at bedside. Unable to retrieve history from patient because of his dementia. This is an 84-year-old right-handed gentleman with medical history of dementia for past 5 year, Parkinson's disease (about 3 years ago), prostate cancer s/p resection (1992) in remision, bradycarida s/p pacer, hyperlipidemia, HTN, remote history of tobacco use, and diverticulitis that presented to the emergency department on 11/04/2019 slurred speech and left facial droop. Per the the event happened around just before 7 PM and her having dinner and she noted the patient was having the facial droop and having slurring the speech and she felt his bilateral upper extremity moves slightly weak. The episode lasted about 5 minutes then resolved. She didn't notice any focal deficit. No visual disturbance. No choking episodes. Per the patient's she did not have any similar episodes in the past. She stated that the patient possibly had a TIA according to his neurologist after seeing and CAT scan of the head but she doesn't know what symptoms he had in the past. Patient is back to baseline. He does take aspirin 81 mg 2 tablets in the morning Lipitor 40 mg daily. Workup in the hospital consisted of: Initial vital signs was blood pressure of 112/70, temperature of 98.7 Fahrenheit oral, pulse is 74, respiratory rate 18, oxygen saturation is 96 at room air. Patient NIH stroke scale was a 0 CT of the head which was reported as cerebral atrophy and chronic small vessel ischemia. No acute intracranial abnormality. No sign of acute cortical i nfarct. No change compared to the 10/24/2014. 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 CT angiography of the head and neck was reported as normal plaque at the carotid artery bifurcation. No evidence of hemodynamic stenosis. No evidence of arterial aneurysm or dissection. Significant venous drainage in the posterior neck could relate to some collateral drainage from the inferior vena cava obstruction EKG was reported as sinus rhythm with first-degree AV block with occasional premature ventricular complexes. Minimal voltage criteria for left ventricular hypertrophy. Ventricular rate of 62. Because the patient symptoms resolved patient did not get any TPA. He follows up with a neurologist as an outpatient regarding management of his dementia, Parkinson's as well as diagnosis. Per his neurologist of TIA. Regarding his Parkinson was he had the symptoms for 3 years and resting tremor of the left upper extremity. He is on Sinemet 25/100 twice a day 1 at 9:00 in the second dose at 2 PM. Regarding his dementia. The said that he is been having worsening memory loss for the last 5 years and is progressively getting worse he is on the Memantine 10 mg 2 a day. Per previous notes the patient had the he was a former smoker and he stopped smoking in about 33 years ago or more. Review of Systems Review of system will be Past Medical History Past Medical History: Cancer, Dementia, Eye Disorder, GERD/Reflux, Musculoskeletal Disorder, Neurologic Disorder, Osteoarthritis (OA) Additional Past Medical History / Comment(s): parkinson's newly diagnosed, hiatal hernia, constipation, diverticulitis with bowel resection and post op ileus, lower GI bleed with acute blood loss anemia, prostate cancer, 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 History of Any Multi-Drug Resistant Organisms: None Reported Past Surgical History: Bowel Resection, Hernia Repair, Prostate Surgery Additional Past Surgical History / Comment(s): 01/26/16 low anterior resection, prostatectomy, umbilical hernia repair and inguinal hernia repair EGD/colonoscopies/polypectomy, bilateral cataract removals, bilateral procedures for glaucoma. Past Anesthesia/Blood Transfusion Reactions: No Reported Reaction Additional Past Anesthesia/Blood Transfusion Reaction / Comment(s): Pt has received blood in past without reaction. Past Psychological History: Anxiety, Depression Additional Psychological History / Comment(s): has vascular dementia. Smoking Status: Unknown if ever smoked Past Alcohol Use History: Rare Additional Past Alcohol Use History / Comment(s): Pt started smoking in 1946 and quit in 1985. smoked 1ppd Past Drug Use History: None Reported - Past Family History Sister(s) History Unknown: Yes Family Medical History: Cancer Additional Family Medical History / Comment(s): Breast cancer. Daughter(s) History Unknown: Yes Family Medical History: Cancer Additional Family Medical History / Comment(s): Breast cancer Father Family Medical History: No Reported History Additional Family Medical History / Comment(s): Father lived to be in his early 90s. Medications and Allergies Home Medications Medication Instructions Recorded Confirmed Type Memantine [Namenda] 10 mg PO BID@999,199912/25/15 11/04/19 History Venlafaxine HCl ER [Effexor XR] 75 mg PO HS@199912/25/15 11/04/19 History Esomeprazole Magnesium [NexIUM] 40 mg PO HS@199901/23/16 11/04/19 History Carbidopa-Levodopa 25-100 mg 2 tab PO BID@1000,139910/06/17 11/04/19 History [Sinemet 25-100 mg] Atorvastatin [Lipitor] 40 mg PO HS@199910/29/17 11/04/19 History Hydrochlorothiazide 12.5 mg PO DAILY@99910/29/17 11/04/19 History [hydroCHLOROthiazide] Aspirin 81 mg PO HS@199911/04/17 11/04/19 History QUEtiapine FUMARATE [SEROquel] 25 mg PO HS@199911/04/19 11/04/19 History Allergies Allergy/AdvReac Type Severity Reaction Status Date / Time No Known Allergies Allergy Verified 11/04/19 22:09 Physical Examination - Vital Signs Vital Signs: Vital Signs Temp Pulse Pulse Resp BP BP Pulse Ox 11/05/19 08:00 98 F 53 L 16 154/64 96 11/05/19 03:58 98.1 F 55 L 18 165/70 98 11/05/19 02:00 50 L 17 163/85 94 L 11/04/19 20:15 59 L 17 119/72 98 11/04/19 20:00 60 18 114/64 98 11/04/19 19:45 98.7 F 74 18 112/70 96 Intake and Output 11/04/19 11/05/19 11/05/19 22:59 06:59 14:59 Other: Voiding Method Toilet # Voids 2 Weight 79.379 kg 77.8 kg 77.8 kg GENERAL: The patient is lying in bed and is not in acute distress. CHEST: The heart rate is regular rate rhythm. No murmurs to auscultation. No carotid bruit bilaterally. LUNG: Clear to auscultation bilaterally no wheezing noted throughout. Not labored breathing. ABDOMEN/GI: Bowel sounds present in all 4 quadrants. No tenderness to palpation throughout. NEUROLOGICAL: Higher mental function: The patient is awake, alert, oriented to self but not place or time. He was able to correctly tell me name of current President. Patient is following simple commands. He was able to name his but not names of 6 children. No aphasia and no neglect. Cranial nerves: The pupils are round, equal and reactive to light and accommodation. Visual andrew are full to confrontation throughout. Extraocular movement is intact no nystagmus is noted. Facial sensation is normal to touch throughout. The facial strength is normal throughout. Hearing is normal bilaterally to hand rub. Tongue is midline and moved [id number] without any difficulty. No dysarthria is noted. Shoulder shrug is normal bilaterally. Motor: Gait is normal. The strength is 5 over 5 throughout. Normal tone and bulk. Patient had resting tremor of left upper extremity. Sensation: Sensation is normal to touch throughout. Reflexes (right/left): 2+ on bilateral upper extremities and 3+ patellar bilaterally. Ankles are 1+ bilaterally. Plantars are downgoing bilaterally. Results PT 10.6, INR 1.0, PTT is 23.8. Lipid profile: Triglyceride is 184, cholesterol 173, LDLs 83, HDL is 53. - Laboratory Findings CBC and BMP: 11/04/19 20:24 11/04/19 20:24 Abnormal Lab Findings: Abnormal Labs 11/04/19 11/05/19 20:24 02:00 Creatinine 1.34 H Glucose 67 L Triglycerides 184 H Assessment and Plan Assessment: Mr. Meng is a 84-year-old right-handed gentleman with medical history of dementia for past 5 year, Parkinson's disease (about 3 years ago), prostate cancer s/p resection (1992) in remision, bradycarida s/p pacer, hyperlipidemia, HTN, remote history of tobacco use, and diverticulitis that presented to the emergency department on 11/04/2019 slurred speech and left facial droop and lasted for 5 minutes. NIH stroke scale 0. Transient ischemic attack (TIA) Slurred speech and left facial droop--resolved. 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 No acute intracranial abnormality. No sign of acute cortical infarct. No change compared to the 10/24/2014. 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 CT angiography of the head and neck was reported as normal plaque at the carotid artery bifurcation. No evidence of hemodynamic stenosis. No evidence of arterial aneurysm or dissection. Significant venous drainage in the posterior neck could relate to some collateral drainage from the inferior vena cava obstruction EKG was reported as sinus rhythm with first-degree AV block with occasional premature ventricular complexes. Minimal voltage criteria for left ventricular hypertrophy. Ventricular rate of 62. Lipid panel: Triglyceride is 184, cholesterol 173, LDLs 83, HDL is 53. Patient was given a stat aspirin in the ED 325 mg. Patient is on ASA 81mg 2 tab at home and Lipitor 40mg daily. Will have the patient be on ASA 81mg and add Plavix 75mg for 1 month then will his neurologist adjust the medication. Will keep him on Lipitor 40mg daily. Will start him on home medication Sinemet 25/100 twice a day 1 at 9:00 in the second dose at 2 PM for his Parkinson's. Regarding his dementia on the Memantine 10 mg 2 a day. PT OT are on board ACADEMIC COMPUTING DIRECTOR is consulted From neurology perspective if 2Decho is normal, he is clear from neurology perspective. Patient was notified that he needs to follow-up with his neurologist within 2 weeks. Thank you for the consult. Jagjit Watson M.D. Neuro-hospitalist Time with Patient: Greater than 30
[2019-11-05] MEDS ORDERED: CLOPIDOGREL 75 MG TAB PO SCH (10:45)
--- NOTE | 2019-11-05 11:09 | P.CRDCN ---
History of Present Illness Consult date: 11/05/19 Chief complaint: bradycardia History of present illness: CHIEF COMPLAINT: bradycardia HISTORY OF PRESENT ILLNESS: 84-year-old male with a history of sick sinus syndrome and pacemaker insertion who follows with Dr. Tello who presented to the emergency room due to altered mental status. Patient has a history of dementia. His is at the bedside and provided the majority of the HPI. She reports yesterday they were sitting down having dinner when the patient began slurring his words and had a left-sided facial droop. She reports after about 5 minutes his symptoms started to improve and within 1 hour he was back to his baseline. She states patient is at his baseline this morning. Patient denies chest pain. Denies shortness of breath. Denies dizziness or lightheadedness. DIAGNOSTICS: EKG reveals sinus rhythm with first-degree heart block Chest xray no active cardiac pulmonary disease Laboratory data: WBC 6.5. Hemoglobin 14.7. Platelet count 193. Sodium 138. Potassium 4.0. BUN 19. Creatinine 1.34. Troponin negative 3. Current home cardiac medications include Aspirin 81 mg daily, Lipitor 40 mg daily, hydrochlorothiazide 12.5 mg daily. REVIEW OF SYSTEMS: CONSTITUTIONAL: Denies fever or chills. HEENT: Denies blurred vision, vision changes, or eye pain. Denies hemoptysis CARDIOVASCULAR: Denies chest pain, orthopnea, PND or palpitations RESPIRATORY: No shortness of breath. GASTROINTESTINAL: Denies abdominal pain. Denies nausea or vomiting. HEMATOLOGIC: Denies bleeding disorders. GENITOURINARY: Denies any blood in urine. SKIN: Denies pruitis. Denies rash. PHYSICAL EXAM: VITAL SIGNS: Reviewed. GENERAL: Well-developed in no acute distress. HEENT: Head is normocephalic. Pupils are equal, round. Sclerae anicteric. Mucous membranes of the mouth are moist. Neck supple. No JVD or thyromegaly LUNGS: Respirations even and unlabored. Lungs clear to auscultation bilaterally. HEART: Regular rate and rhythm. S1 and S2 heard. ABDOMEN: Soft. Nondistended. Nontender. EXTREMITIES: Normal range of motion. No clubbing or cyanosis. Peripheral pulses intact. No lower extremity edema NEUROLOGIC: Awake and alert. Oriented x 1-2. ASSESSMENT: 1. Slurred speech and left facial droop, possible TIA 2. History of sick sinus syndrome with pacemaker insertion, 2018 3. History of dementia PLAN: -Continue current cardiac medications -Will interrogate pacemaker to rule out any episodes of a-fib, which places the patient at risk for clot formation, and could account for the patients neurological symptoms Nurse practitioner note has been reviewed by physician. Signing provider agrees with the documented findings, assessment, and plan of care. 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 History of Any Multi-Drug Resistant Organisms: None Reported Past Surgical History: Bowel Resection, Hernia Repair, Prostate Surgery Additional Past Surgical History / Comment(s): 01/26/16 low anterior resection, prostatectomy, umbilical hernia repair and inguinal hernia repair EGD/colonoscopies/polypectomy, bilateral cataract removals, bilateral procedures for glaucoma. Past Anesthesia/Blood Transfusion Reactions: No Reported Reaction Additional Past Anesthesia/Blood Transfusion Reaction / Comment(s): Pt has received blood in past without reaction. Past Psychological History: Anxiety, Depression Additional Psychological History / Comment(s): has vascular dementia. Smoking Status: Unknown if ever smoked Past Alcohol Use History: Rare Additional Past Alcohol Use History / Comment(s): Pt started smoking in 1946 and quit in 1985. smoked 1ppd Past Drug Use History: None Reported - Past Family History Sister(s) History Unknown: Yes Family Medical History: Cancer Additional Family Medical History / Comment(s): Breast cancer. Daughter(s) History Unknown: Yes Family Medical History: Cancer Additional Family Medical History / Comment(s): Breast cancer Father Family Medical History: No Reported History Additional Family Medical History / Comment(s): Father lived to be in his early 90's. Medications and Allergies Home Medications Medication Instructions Recorded Confirmed Type Memantine [Namenda] 10 mg PO BID@1000,199912/25/15 11/04/19 History Venlafaxine HCl ER [Effexor XR] 75 mg PO HS@199912/25/15 11/04/19 History Esomeprazole Magnesium [NexIUM] 40 mg PO HS@199901/23/16 11/04/19 History Carbidopa-Levodopa 25-100 mg 2 tab PO BID@1000,1400 10/06/17 11/04/19 History [Sinemet 25-100 mg] Atorvastatin [Lipitor] 40 mg PO HS@199910/29/17 11/04/19 History Hydrochlorothiazide 12.5 mg PO DAILY@1000 10/29/17 11/04/19 History [hydroCHLOROthiazide] Aspirin 81 mg PO HS@199911/04/17 11/04/19 History QUEtiapine FUMARATE [SEROquel] 25 mg PO HS@199911/04/19 11/04/19 History Allergies Allergy/AdvReac Type Severity Reaction Status Date / Time No Known Allergies Allergy Verified 11/04/19 22:09 Physical Exam Vitals: Vital Signs Temp Pulse Pulse Resp BP BP Pulse Ox 11/05/19 08:00 98 F 53 L 16 154/64 96 11/05/19 03:58 98.1 F 55 L 18 165/70 98 11/05/19 02:00 50 L 17 163/85 94 L 11/04/19 20:15 59 L 17 119/72 98 11/04/19 20:00 60 18 114/64 98 11/04/19 19:45 98.7 F 74 18 112/70 96 Intake and Output 11/04/19 11/05/19 11/05/19 22:59 06:59 14:59 Other: Voiding Method Toilet # Voids 2 Weight 79.379 kg 77.8 kg 77.8 kg Results 11/04/19 20:24 11/04/19 20:24 Cardiac Enzymes 11/04/19 11/04/19 11/04/19 Range/Units 20:24 20:24 23:10 AST 34 (17-59) U/L Troponin I <0.012 <0.012 (0.000-0.034) ng/mL 11/05/19 Range/Units 02:00 AST (17-59) U/L Troponin I <0.012 (0.000-0.034) ng/mL Coagulation 11/04/19 Range/Units 20:24 PT 10.6 (9.0-12.0) sec APTT 23.8 (22.0-30.0) sec Lipids 11/05/19 Range/Units 02:00 Triglycerides 184 H (<150) mg/dL Cholesterol 173 (<200) mg/dL HDL Cholesterol 53 (40-60) mg/dL CBC 11/04/19 Range/Units 20:24 WBC 6.5 (3.8-10.6) k/uL RBC 4.70 (4.30-5.90) m/uL Hgb 14.7 (13.0-17.5) gm/dL Hct 46.6 (39.0-53.0) % Plt Count 193 (150-450) k/uL Comprehensive Metabolic Panel 11/04/19 Range/Units 20:24 Sodium 138 (137-145) mmol/L Potassium 4.0 (3.5-5.1) mmol/L Chloride 103 (98-107) mmol/L Carbon Dioxide 27 (22-30) mmol/L BUN 19 (9-20) mg/dL Creatinine 1.34 H (0.66-1.25) mg/dL Glucose 67 L (74-99) mg/dL Calcium 10.1 (8.4-10.2) mg/dL AST 34 (17-59) U/L ALT 8 (4-49) U/L Alkaline Phosphatase 82 (38-126) U/L Total Protein 7.2 (6.3-8.2) g/dL Albumin 4.4 (3.5-5.0) g/dL Current Medications Generic Name Dose Route Start Last Admin Trade Name Shashankq PRN Reason Stop Dose Admin Aspirin 325 mg 11/05/19 22:31 Aspirin PO DAILY [facility] Atorvastatin Calcium 20 mg 11/05/19 21:00 Lipitor PO HS [facility] Carbidopa/Levodopa 2 each 11/05/19 10:00 Sinemet 25-100 PO BID@1000,1400 [facility] Famotidine 20 mg 11/05/19 21:00 Pepcid IV Q12HR [facility] Heparin Sodium (Porcine) 5,000 unit 11/05/19 21:00 Heparin SQ Q12HR [facility] Hydrochlorothiazide 12.5 mg 11/05/19 10:00 Hydrodiuril PO DAILY@1000 [facility] Sodium Chloride 1,000 mls @ 100 mls/hr 11/04/19 22:45 11/05/19 02:36 Saline 0.9% IV 100 mls/hr .Q10H [facility] Administration Memantine 10 mg 11/05/19 10:00 Namenda PO BID@1000,1999 [facility] Pantoprazole Sodium 40 mg 11/05/19 20:00 Protonix PO HS@1999 [facility] Quetiapine Fumarate 25 mg 11/05/19 20:00 Seroquel PO HS@1999 [facility] Venlafaxine HCl 75 mg 11/05/19 20:00 Effexor Xr PO HS@1999 [facility] Intake and Output 11/04/19 11/05/19 11/05/19 22:59 06:59 14:59 Other: Voiding Method Toilet # Voids 2 Weight 79.379 kg 77.8 kg 77.8 kg Patient Weight 11/06/19 06:59 Weight 77.8 kg 11/04/19 20:24 11/04/19 20:24
[2019-11-05] MEDS: CARBIDOPA-LEVODOPA 25-100 MG 1 EACH TAB PO SCH ×2 (12:06→16:38)
[2019-11-05 17:25] LABS: Folate, Serum >24.0 ng/mL
[2019-11-05 18:10] VITALS: BP 136/73; PULSE 57; RESP 18; TEMP 97.9
[2019-11-05] MEDS ORDERED: PANTOPRAZOLE 40 MG TABLET PO SCH (20:00)
[2019-11-05] MEDS ORDERED: VENLAFAXINE HCL ER 75 MG CAP PO SCH (20:00)
[2019-11-05] MEDS ORDERED: QUEtiapine 25 MG TAB PO SCH (20:00)
[2019-11-05] MEDS ORDERED: FAMOTIDINE 20 MG/2 ML VIAL IV SCH ×2 (21:00)
[2019-11-05] MEDS ORDERED: HEPARIN SODIUM,PORCINE 5,000 UNIT/ML 1 ML VIAL SQ SCH (21:00)
[2019-11-05] MEDS ORDERED: ATORVASTATIN 20 MG TAB PO SCH (21:00)
[2019-11-05] MEDS ORDERED: ATORVASTATIN 40 MG TAB PO SCH (21:00)
[2019-11-05] MEDS ORDERED: ASPIRIN 325 MG TAB PO SCH (22:31)
[2019-11-06] MEDS ORDERED: ASPIRIN 81 MG PO SCH (09:00)
== END 2019-11-05 18:48 | disposition home or self-care (01) ==
LOC: EC 19:44 → 3NCARDOBS 22:31 → 3SCARD 11-05 02:22
PROVIDERS: ADMIT Hospitalist; ATTEND Hospitalist
DX: G45.9 Transient cerebral ischemic attack, unspecified (principal); R29.700 NIHSS score 0; I49.5 Sick sinus syndrome; G20 Parkinson's disease; F02.80 Dementia in other diseases classified elsewhere, unspecified severity, without behavioral disturbance, psychotic disturbance, mood disturbance, and anxiety; K21.9 Gastro-esophageal reflux disease without esophagitis; M19.90 Unspecified osteoarthritis, unspecified site; H40.9 Unspecified glaucoma; F41.9 Anxiety disorder, unspecified; F32.9 Major depressive disorder, single episode, unspecified; K44.9 Diaphragmatic hernia without obstruction or gangrene; I49.3 Ventricular premature depolarization; I44.0 Atrioventricular block, first degree; I08.3 Combined rheumatic disorders of mitral, aortic and tricuspid valves; Z87.19 Personal history of other diseases of the digestive system; Z79.899 Other long term (current) drug therapy; Z79.82 Long term (current) use of aspirin; Z85.46 Personal history of malignant neoplasm of prostate; Z90.49 Acquired absence of other specified parts of digestive tract; Z86.2 Personal history of diseases of the blood and blood-forming organs and certain disorders involving the immune mechanism; Z90.79 Acquired absence of other genital organ(s); Z86.010 Personal history of colon polyps; Z98.41 Cataract extraction status, right eye; Z98.42 Cataract extraction status, left eye; Z98.890 Other specified postprocedural states; Z95.0 Presence of cardiac pacemaker; Z87.891 Personal history of nicotine dependence; Z86.73 Personal history of transient ischemic attack (TIA), and cerebral infarction without residual deficits; Z80.3 Family history of malignant neoplasm of breast
CPT/HCPCS: 93288; 96360; 96361 ×2; 99285; 36415; 93005; 93306; 97162; 97166; 92610; 82747; 80061; 80053; 84443; 82607; 82550; 82746; 84484 ×2; 85025; 85610; 85730; 71046; 70496; 70450; 70498; G0378 ×3; Q9967

== ENCOUNTER 2021-01-10 05:41 | Inpatient (IN) | payer MEDICARE, BC ==
[2021-01-10] MEDS ORDERED: MORPHINE SULFATE 4 MG/ML SYRINGE IV STA (06:07)
[2021-01-10] MEDS ORDERED: SODIUM CHLORIDE 0.9% 1,000 ML IV ONE (06:07)
--- NOTE | 2021-01-10 06:33 | XR ---
EXAMINATION TYPE: XR Hip Complete LT DATE OF EXAM: 01/10/2021 COMPARISON: NONE HISTORY: Fall. Pain. TECHNIQUE: 2 views FINDINGS: There is acute comminuted intertrochanteric fracture left femur. There is no dislocation. IMPRESSION: Acute fracture left femur.
--- NOTE | 2021-01-10 06:35 | XR ---
EXAMINATION TYPE: XR chest 1V DATE OF EXAM: 01/10/2021 COMPARISON: NONE HISTORY: Pain TECHNIQUE: Single view FINDINGS: There is no heart failure nor confluent pneumonic infiltrate. Costophrenic angles are clear . There is left axillary pacemaker. Thoracic aorta is atheromatous. There is no pleural effusion. IMPRESSION: No active cardiopulmonary disease. Normal heart.
[2021-01-10 06:36] LABS: Basophils # (A) 0.1 k/uL (0-0.2); Basophils % (A) 1 %; Eosinophils # (A) 0.3 k/uL (0-0.7); Eosinophils % (A) 4 %; HCT 40.8 % (39.0-53.0); HGB 13.4 gm/dL (13.0-17.5); Lymphocytes # (A) 1.6 k/uL (1.0-4.8); Lymphocytes % (A) 20 %; MCH 32.6 pg (25.0-35.0); MCHC 32.9 g/dL (31.0-37.0); MCV 99.1 fL (80.0-100.0); Mean Platelet Volume 7.6; Monocytes # (A) 0.7 k/uL (0-1.0); Monocytes % (A) 8 %; Neutrophils # (A) 5.4 k/uL (1.3-7.7); Neutrophils % (A) 65 %; Platelet Count 211 k/uL (150-450); RBC 4.12 m/uL (4.30-5.90); RDW 13.9 % (11.5-15.5); WBC 8.3 k/uL (3.8-10.6)
[2021-01-10 06:44] LABS: Partial Thromboplastin Time 22.9 sec (22.0-30.0); Prothrombin Time 10.6 sec (9.0-12.0)
[2021-01-10] MEDS ORDERED: HYDROmorphone 1 MG/ML 1 ML SYRINGE IVP STA (06:45)
--- NOTE | 2021-01-10 06:45 | ED ---
Fall HPI - General Chief Complaint: Fall Stated Complaint: Left hip pain Time Seen by Provider: 01/10/21 06:02 Source: EMS, RN notes reviewed Mode of arrival: EMS - History of Present Illness Initial Comments: Patient is an 85-year-old male that presents to emergency department via EMS from facility due to fall with left hip pain. Nurse notes the patient has a history of dementia and is a poor historian. Patient was laying in bed in moderate discomfort complaining of left hip pain while not moving left leg. Patient was unable to give accurate history or review of systems at this time. He reported his pain was at or from 5-10 out of 10 and then stated that he was unsure of how bad it was. He denied any chest pain shortness of breath nausea vomiting diarrhea. - Related Data Home Medications Medication Instructions Recorded Confirmed Memantine [Namenda] 10 mg PO BID@1000,199912/25/15 11/04/19 Venlafaxine HCl ER [Effexor XR] 75 mg PO HS@199912/25/15 11/04/19 Esomeprazole Magnesium [NexIUM] 40 mg PO HS@199901/23/16 11/04/19 Carbidopa-Levodopa 25-100 mg 2 tab PO BID@1000,1400 10/06/17 11/04/19 [Sinemet 25-100 mg] Atorvastatin [Lipitor] 40 mg PO HS@199910/29/17 11/04/19 Hydrochlorothiazide 12.5 mg PO DAILY@1000 10/29/17 11/04/19 [hydroCHLOROthiazide] QUEtiapine FUMARATE [SEROquel] 25 mg PO HS@199911/04/19 11/04/19 Previous Rx's Medication Instructions Recorded Aspirin 81 mg PO HS@1999 #30 11/05/19 Clopidogrel Bisulfate [Plavix] 75 mg PO DAILY 30 Days #30 tab 11/05/19 Allergies Allergy/AdvReac Type Severity Reaction Status Date / Time No Known Allergies Allergy Verified 01/10/21 06:01 Review of Systems ROS Statement: Those systems with pertinent positive or pertinent negative responses have been documented in the HPI. ROS Other: All systems not noted in ROS Statement are negative. 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 History of Any Multi-Drug Resistant Organisms: None Reported Past Surgical History: Bowel Resection, Hernia Repair, Prostate Surgery Additional Past Surgical History / Comment(s): 01/26/16 low anterior resection, prostatectomy, umbilical hernia repair and inguinal hernia repair EGD/colonoscopies/polypectomy, bilateral cataract removals, bilateral procedures for glaucoma. Past Anesthesia/Blood Transfusion Reactions: No Reported Reaction Additional Past Anesthesia/Blood Transfusion Reaction / Comment(s): Pt has received blood in past without reaction. Past Psychological History: Anxiety, Depression Smoking Status: Unknown if ever smoked Past Alcohol Use History: Rare Past Drug Use History: None Reported - Past Family History Sister(s) History Unknown: Yes Family Medical History: Cancer Additional Family Medical History / Comment(s): Breast cancer. Daughter(s) History Unknown: Yes Family Medical History: Cancer Additional Family Medical History / Comment(s): Breast cancer Father Family Medical History: No Reported History Additional Family Medical History / Comment(s): Father lived to be in his early 90's. General Exam Limitations: altered mental status General appearance: alert Head exam: Present: atraumatic, normocephalic, normal inspection Eye exam: Present: normal appearance, PERRL, EOMI. Absent: scleral icterus, conjunctival injection, periorbital swelling ENT exam: Present: normal exam, mucous membranes moist Neck exam: Present: normal inspection Respiratory exam: Present: normal lung sounds bilaterally. Absent: respiratory distress, wheezes, rales, rhonchi, stridor Cardiovascular Exam: Present: regular rate, normal rhythm, normal heart sounds. Absent: systolic murmur, diastolic murmur, rubs, gallop, clicks Left Hip exam: Present: normal inspection, tenderness (Over the lateral aspect), external rotation, shortening. Absent: full ROM Neurological exam: Present: alert Psychiatric exam: Present: normal affect Skin exam: Present: warm, dry, intact, normal color. Absent: rash Course Vital Signs 01/10/21 01/10/21 05:49 07:49 Temperature 97.7 F Pulse Rate 65 62 Respiratory 18 18 Rate Blood Pressure 174/92 144/75 O2 Sat by Pulse 93 L 96 Oximetry Medical Decision Making - Medical Decision Making 85-year-old male status post fall on Plavix with left hip pain. Labs, x-ray of the left hip, CT of the brain, 1 L normal saline, 4 mg of morphine ordered. X-ray left hip shows acute left femur fracture. Labs unremarkable. Jonathan Arauz's physician assistant offset press operator was consulted and will accept the admit for left femur fracture. Medicine on consult for clearance. Case discussed with Dr. Tracy - Lab Data Result diagrams: 01/10/21 06:13 01/10/21 06:13 Lab Results 01/10/21 01/10/21 01/10/21 Range/Units 06:13 06:13 06:13 WBC 8.3 (3.8-10.6) k/uL RBC 4.12 L (4.30-5.90) m/uL Hgb 13.4 (13.0-17.5) gm/dL Hct 40.8 (39.0-53.0) % MCV 99.1 (80.0-100.0) fL MCH 32.6 (25.0-35.0) pg MCHC 32.9 (31.0-37.0) g/dL RDW 13.9 (11.5-15.5) % Plt Count 211 (150-450) k/uL MPV 7.6 Neutrophils % 65 % Lymphocytes % 20 % Monocytes % 8 % Eosinophils % 4 % Basophils % 1 % Neutrophils # 5.4 (1.3-7.7) k/uL Lymphocytes # 1.6 (1.0-4.8) k/uL Monocytes # 0.7 (0-1.0) k/uL Eosinophils # 0.3 (0-0.7) k/uL Basophils # 0.1 (0-0.2) k/uL PT 10.6 (9.0-12.0) sec INR 1.0 (<1.2) APTT 22.9 (22.0-30.0) sec Sodium 140 (137-145) mmol/L Potassium 3.9 (3.5-5.1) mmol/L Chloride 104 (98-107) mmol/L Carbon Dioxide 28 (22-30) mmol/L Anion Gap 8 mmol/L BUN 23 H (9-20) mg/dL Creatinine 1.01 (0.66-1.25) mg/dL Est GFR (CKD-EPI)AfAm 78 (>60 ml/min/1.73 sqM) Est GFR (CKD-EPI)NonAf 67 (>60 ml/min/1.73 sqM) Glucose 95 (74-99) mg/dL Calcium 9.9 (8.4-10.2) mg/dL Total Bilirubin 1.0 (0.2-1.3) mg/dL AST 41 (17-59) U/L ALT 17 (4-49) U/L Alkaline Phosphatase 111 (38-126) U/L Total Protein 6.8 (6.3-8.2) g/dL Albumin 3.7 (3.5-5.0) g/dL - EKG Data -: EKG Interpreted by Me EKG shows normal: sinus rhythm Rate: normal EKG Comments: Ventricular rate 62 bpm, SD interval 184 ms, QRS duration 102 ms, QTC 422 ms, PRT axis 80/13/193, sinus rhythm with premature atrial complexes with an apparent conduction, left ventricular hypertrophy with repolarization abnormality, abnormal ECG. - Radiology Data Radiology results: report reviewed, image reviewed X-ray left hip: Acute fracture left femur. Chest x-ray: No active cardiopulmonary disease. Normal heart. CT of the brain: Age-related atrophic and chronic small vessel ischemic changes without acute intracranial process at this time. Disposition Clinical Impression: Fracture, intertrochanteric, left femur, Fall Disposition: ADMITTED IP TO THIS HOSP Condition: Stable Is patient prescribed a controlled substance at d/c from ED?: No Referrals: Nonstaff,Physician [Primary Care Provider] - 1-2 days Time of Disposition: 08:08
[2021-01-10 06:46] LABS: Albumin 3.7 g/dL (3.5-5.0); Calcium 9.9 mg/dL (8.4-10.2); Potassium 3.9 mmol/L (3.5-5.1); Total Protein 6.8 g/dL (6.3-8.2)
[2021-01-10] MEDS ORDERED: LORazepam 2 MG/ML INJ IV STA (06:56)
--- NOTE | 2021-01-10 07:59 | CT ---
EXAMINATION TYPE: CT brain wo con DATE OF EXAM: 01/10/2021 COMPARISON: 8 point HISTORY: AMS CT DLP: 1110.[address] of the brain was performed. The ventricles, basal cisterns and sulci overlying the cerebral convexities demonstrate moderate enla rgement. There is no evidence for intracranial hemorrhage or sulcal effacement. There is decreased attenuation about the periventricular white matter and deep white matter of both c erebral hemispheres, compatible with chronic small vessel ischemia. Differential diagnosis does inclu de demyelination. No mass effects are seen.No midline shift. Osseous calvarium is intact. If symptoms persist consider MRI. IMPRESSION: 1. Age related atrophic and chronic small vessel ischemic change without acute intracranial process s een at this time.
[2021-01-10] MEDS ORDERED: NALOXONE 0.4 MG/ML 1 ML VIAL IV PRN (08:08)
[2021-01-10] MEDS ORDERED: LORazepam 2 MG/ML INJ IV PRN (08:08)
[2021-01-10] MEDS ORDERED: bisacodyL 10 MG SUPP RECTAL PRN (10:36)
[2021-01-10] MEDS ORDERED: AMMONIUM LACTATE 12% CREAM 140 GM TUBE TOPICAL PRN (10:36)
[2021-01-10] MEDS ORDERED: PROCHLORPERAZINE SUPPOSITORY 25 MG SUPP RECTAL PRN (10:36)
[2021-01-10] MEDS: HYDROmorphone 1 MG/ML 1 ML SYRINGE IVP PRN ×2 (11:33→14:27)
[2021-01-10] MEDS: PANTOPRAZOLE 40 MG TABLET PO SCH (11:37)
[2021-01-10] MEDS: PSYLLIUM HUSK 100% 6 GM PACKET PO SCH (12:51)
[2021-01-10] MEDS: RIVASTIGMINE 4.6MG/24HR PATCH TRANSDERM SCH (12:55)
[2021-01-10] MEDS ORDERED: HYDROcodone/APAP 5-325MG 1 EACH TAB PO PRN (14:16)
--- NOTE | 2021-01-10 14:28 | P.CNOR ---
History of Present Illness - [facility] Consult date: 01/10/21 Consult reason: fracture History of present illness: Patient's 85-year-old male with history of dementia and Parkinson's his company by his son at bedside. His son is available for majority of the patient's history the patient is essentially not communicative The patient was found on the floor in his room where he resides in an assisted care facility. He has history of severe dementia and Parkinson's. He has history of hypertension as well. He was indicating significant pain for his left leg and was brought to the emergency room where his found to have an intertrochanteric left femur fracture. They will fall was unwitnessed. He is normally minimally ambulatory with assistance and assistive device. He apparently wonders on his own. He normally seat himself but is essentially unable to take care of himself and general. He is not able to get up or move around well since his fall. Apparently he did not have any significant problems with his hip prior to this. There is no known loss of consciousness. There is no known other injuries. Review of Systems Limited due to the patient's status. Apparently the patient was not complaining of other pains or symptoms. No history of antecedent pain at his left femur hip. He is normally a minimal ambulator. 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 History of Any Multi-Drug Resistant Organisms: None Reported Past Surgical History: Bowel Resection, Hernia Repair, Prostate Surgery Additional Past Surgical History / Comment(s): 01/26/16 low anterior resection, prostatectomy, umbilical hernia repair and inguinal hernia repair EGD/colonoscopies/polypectomy, bilateral cataract removals, bilateral procedures for glaucoma. Past Anesthesia/Blood Transfusion Reactions: No Reported Reaction Additional Past Anesthesia/Blood Transfusion Reaction / Comm: Pt has received blood in past without reaction. Past Psychological History: Anxiety, Depression Smoking Status: Unknown if ever smoked Past Alcohol Use History: Rare Past Drug Use History: None Reported - Past Family History Sister(s) History Unknown: Yes Family Medical History: Cancer Additional Family Medical History / Comment(s): Breast cancer. Daughter(s) History Unknown: Yes Family Medical History: Cancer Additional Family Medical History / Comment(s): Breast cancer Father Family Medical History: No Reported History Additional Family Medical History / Comment(s): Father lived to be in his early 90's. Medications and Allergies Home Medications Medication Instructions Recorded Confirmed Type Memantine [Namenda] 10 mg PO BID@08,199912/25/15 01/10/21 History Venlafaxine HCl ER [Effexor XR] 75 mg PO DAILY@0800 12/25/15 01/10/21 History Esomeprazole Magnesium [NexIUM] 40 mg PO DAILY@0800 01/23/16 01/10/21 History Carbidopa-Levodopa 25-100 mg 1 tab PO BID@08,199910/06/17 01/10/21 History [Sinemet 25-100 mg] QUEtiapine FUMARATE [SEROquel] 25 mg PO HS@199911/04/19 01/10/21 History Acetaminophen Suppository [Tylenol 650 mg RECTAL Q4H PRN 01/10/21 01/10/21 History Suppository] Acetaminophen Tab [Tylenol] 325 mg PO DAILY@0801/10/21 01/10/21 History Ammonium Lactate Cream [Lac-Hydrin 1 applic TOPICAL BID PRN 01/10/21 01/10/21 History 12% Cream] Ativan 2mg/Ml 0.5 - 1 mg PO Q4H PRN 01/10/21 History Atorvastatin Calcium [Lipitor] 80 mg PO HS@199901/10/21 01/10/21 History Clopidogrel Bisulfate [Plavix] 75 mg PO DAILY@0801/10/21 01/10/21 History Haldol 2mg/Ml 0.5 - 1 mg SUBLINGUAL Q4H PRN 01/10/21 01/10/21 History Hyoscyamine Sulfate [Levsin] 0.125 - 0.25 mg SUBLINGUAL Q4H PRN 01/10/21 01/10/21 History Multivitamins, Thera [Multivitamin 1 tab PO DAILY@0800 01/10/21 01/10/21 History (formulary)] Prochlorperazine Suppository 25 mg RECTAL Q12H PRN 01/10/21 01/10/21 History [Compazine] Psyllium Husk (with Sugar) 1 dose PO DAILY@0800 01/10/21 01/10/21 History [Metamucil Powder] QUEtiapine [SEROquel] 50 mg PO HS@199901/10/21 01/10/21 History Rivastigmine 4.6MG/24Hr Patch 1 patch TRANSDERM DAILY@0800 01/10/21 01/10/21 History [Exelon 4.6MG/24Hr Patch] Sennosides/Docusate Sodium [Senna 1 - 2 cap PO DAILY PRN 01/10/21 01/10/21 History Plus 8.6-50 mg Softgel] Vit C/E/Zn/Coppr/Lutein/Zeaxan 1 cap PO BID@0800,199901/10/21 01/10/21 History [Preservision Areds 2 Softgel] bisacodyL 10 mg RECTAL Q72H PRN 01/10/21 01/10/21 History levETIRAcetam [Keppra] 250 mg PO BID@0800,199901/10/21 01/10/21 History Allergies Allergy/AdvReac Type Severity Reaction Status Date / Time No Known Allergies Allergy Verified 01/10/21 08:21 Physical Examination Osteopathic Statement: *. No significant issues noted on an osteopathic structural exam other than those noted in the History and Physical/Consult. - Hip left Gait: other (The patient is unable to move. He is minimally responsive to questioning and does not answer any questions. He has some response to pain. He will respond with pain when moving his left hip.) Tenderness with palpation: other (His thighs and calf are soft and nontender. There is nontender over his knee ankle foot. His right hip does not have any pain with internal/external rotation. Left hip has pain with internal/external rotation. Abdomen soft. Chest has good excursion. Nontender to his neck.) Pain with motion: other (His upper extremities are nontender to palpation.) Results - Labs Labs: Abnormal Lab Results - Last 24 Hours (Table) 01/10/21 01/10/21 Range/Units 06:13 06:13 RBC 4.12 L (4.30-5.90) m/uL BUN 23 H (9-20) mg/dL H & H 01/10/21 Range/Units 06:13 Hgb 13.4 (13.0-17.5) gm/dL Hct 40.8 (39.0-53.0) % Coagulation 01/10/21 Range/Units 06:13 INR 1.0 (<1.2) Result Diagrams: 01/10/21 06:13 01/10/21 06:13 - Diagnostic results Hip x-ray: report reviewed, image reviewed (X-rays of his pelvis and left hip show intertrochanteric left femur fracture with displacement. There are some mild arthritic changes with joint space. There is no apparent mass.) Hip MRI: report reviewed Assessment and Plan Assessment: Left intertrochanteric femur fracture, acute traumatic Unwitnessed fall Severe dementia and Parkinson's History of prostatectomy History of high blood pressure Had been on Plavix yesterday Plan: Left intertrochanteric femur fracture, acute traumatic Unwitnessed fall Severe dementia and Parkinson's History of prostatectomy History of high blood pressure Had been on Plavix yesterday The patient has a new injury to his left intertrochanteric femur with displacement due to his fall. With this injury and would be extremely unlikely for him to be able to attempt any mobility or ambulation and less he were to undergo surgical intervention for fixation. His stance chance of regaining any sort of mobility and function with his left leg would be to perform surgical stabilization. I think that he could have significant benefit with intramedullary screw for his left intertrochanteric femur fracture. Discussed this issue at length with him and with his son. The patient does not express any obvious understanding that the patient son is understanding and I answered all of his questions to the best my ability. The patient son at bedside is the power of supervisor packing for his father and plans to proceed with surgical intervention. I discussed the risk and alternatives and benefits of surgery including but not limited to the risk of bleeding risk of infection risk of need for further surgery risk of decreased loss of motion loss function as well as other risks including issues with anesthesia and heart attack and even . They understand these issues and given the patient's injury they've elected to proceed with surgical intervention. We will plan to proceed with intramedullary hip screw placement for his intertrochanteric femur fracture tomorrow morning. We will hold his blood thinners and make him nothing by mouth after midnight. We'll try to control his pain today and hopefully they will start some mobility for him after surgical intervention. He will be seen with medicine service for clearance as well. Time with Patient: Greater than 30
--- NOTE | 2021-01-10 14:29 | P.HPOR ---
History of Present Illness H&P Date: 01/10/21 Chief Complaint: Left hip pain status post fall Patient is an 85-year-old male who is examined emergency department for further evaluation of his left hip. Patient is known to have dementia. Patient is discussed in detail with Rob Jewell PA-C in the emergency department who states the patient lives in a facility where the patient has his own room in a community area. Patient had sustained a fall with injury to his left hip. He was brought to [facility] for further evaluation. Imaging showed evidence of a left hip intertrochanteric hip fracture. He was admitted to our service for further evaluation. Consultation has been placed with medicine for surgical clearance for his left hip. Patient is able to answer some questions at the bedside but not all of them. He does have pain with any active range of motion or passive range of motion of the left hip. Nursing states they're currently planning to contact the next of kin to discuss plan of care. Patient's other medical diagnoses include prostate cancer, neurological disorder, recently diagnosed Parkinson's disease, history of diverticulitis with bowel resection and postoperative ileus, and history of lower GI bleed with acute blood loss anemia. Patient is currently on Plavix which is being held. Medicine has been consulted for medical clearance. 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 History of Any Multi-Drug Resistant Organisms: None Reported Past Surgical History: Bowel Resection, Hernia Repair, Prostate Surgery Additional Past Surgical History / Comment(s): 01/26/16 low anterior resection, prostatectomy, umbilical hernia repair and inguinal hernia repair EGD/colonoscopies/polypectomy, bilateral cataract removals, bilateral procedures for glaucoma. Past Anesthesia/Blood Transfusion Reactions: No Reported Reaction Additional Past Anesthesia/Blood Transfusion Reaction / Comment(s): Pt has received blood in past without reaction. Past Psychological History: Anxiety, Depression Smoking Status: Unknown if ever smoked Past Alcohol Use History: Rare Past Drug Use History: None Reported - Past Family History Sister(s) History Unknown: Yes Family Medical History: Cancer Additional Family Medical History / Comment(s): Breast cancer. Daughter(s) History Unknown: Yes Family Medical History: Cancer Additional Family Medical History / Comment(s): Breast cancer Father Family Medical History: No Reported History Additional Family Medical History / Comment(s): Father lived to be in his early 90's. Medications and Allergies Home Medications Medication Instructions Recorded Confirmed Type Memantine [Namenda] 10 mg PO BID@08,199912/25/15 01/10/21 History Venlafaxine HCl ER [Effexor XR] 75 mg PO DAILY@0800 12/25/15 01/10/21 History Esomeprazole Magnesium [NexIUM] 40 mg PO DAILY@0800 01/23/16 01/10/21 History Carbidopa-Levodopa 25-100 mg 1 tab PO BID@08,199910/06/17 01/10/21 History [Sinemet 25-100 mg] QUEtiapine FUMARATE [SEROquel] 25 mg PO HS@199911/04/19 01/10/21 History Acetaminophen Suppository [Tylenol 650 mg RECTAL Q4H PRN 01/10/21 01/10/21 History Suppository] Acetaminophen Tab [Tylenol] 325 mg PO DAILY@0801/10/21 01/10/21 History Ammonium Lactate Cream [Lac-Hydrin 1 applic TOPICAL BID PRN 01/10/21 01/10/21 History 12% Cream] Ativan 2mg/Ml 0.5 - 1 mg PO Q4H PRN 01/10/21 History Atorvastatin Calcium [Lipitor] 80 mg PO HS@199901/10/21 01/10/21 History Clopidogrel Bisulfate [Plavix] 75 mg PO DAILY@0800 01/10/21 01/10/21 History Haldol 2mg/Ml 0.5 - 1 mg SUBLINGUAL Q4H PRN 01/10/21 01/10/21 History Hyoscyamine Sulfate [Levsin] 0.125 - 0.25 mg SUBLINGUAL Q4H PRN 01/10/21 01/10/21 History Multivitamins, Thera [Multivitamin 1 tab PO DAILY@0800 01/10/21 01/10/21 History (formulary)] Prochlorperazine Suppository 25 mg RECTAL Q12H PRN 01/10/21 01/10/21 History [Compazine] Psyllium Husk (with Sugar) 1 dose PO DAILY@0800 01/10/21 01/10/21 History [Metamucil Powder] QUEtiapine [SEROquel] 50 mg PO HS@199901/10/21 01/10/21 History Rivastigmine 4.6MG/24Hr Patch 1 patch TRANSDERM DAILY@0800 01/10/21 01/10/21 History [Exelon 4.6MG/24Hr Patch] Sennosides/Docusate Sodium [Senna 1 - 2 cap PO DAILY PRN 01/10/21 01/10/21 History Plus 8.6-50 mg Softgel] Vit C/E/Zn/Coppr/Lutein/Zeaxan 1 cap PO BID@0800,199901/10/21 01/10/21 History [Preservision Areds 2 Softgel] bisacodyL 10 mg RECTAL Q72H PRN 01/10/21 01/10/21 History levETIRAcetam [Keppra] 250 mg PO BID@0800,199901/10/21 01/10/21 History Allergies Allergy/AdvReac Type Severity Reaction Status Date / Time No Known Allergies Allergy Verified 01/10/21 08:21 Physical Examination Physical exam: Patient is arousable and answers some questions Vital signs stable Good chest excursion with deep inspiration and expiration Left lower extremity is shortened and externally rotated Pain with palpation of the left hip Significant pain with internal and external rotation of the left hip No pain with internal and external rotation of the right hip Neurovascularly intact bilateral lower extremities Dorsiflexion, plantarflexion, and extensor hallucis longus positive sustained bilaterally Calves are soft and supple; No signs or symptoms of DVT; No calf pain Results Pertinent studies: X-rays of the left hip taken on 01/10/2021: Acute comminuted intertrochanteric left femur fracture; no dislocation - Labs Labs: Abnormal Lab Results - Last 24 Hours (Table) 01/10/21 01/10/21 Range/Units 06:13 06:13 RBC 4.12 L (4.30-5.90) m/uL BUN 23 H (9-20) mg/dL H & H 01/10/21 Range/Units 06:13 Hgb 13.4 (13.0-17.5) gm/dL Hct 40.8 (39.0-53.0) % Coagulation 01/10/21 Range/Units 06:13 INR 1.0 (<1.2) Result Diagrams: 01/10/21 06:13 01/10/21 06:13 Assessment and Plan Assessment: Assessment: Acute traumatic comminuted intertrochanteric left femur fracture Left hip pain Status post fall Unable to ambulate on the left lower extremity due to hip fracture Dementia Recently diagnosed Parkinson's disease History of prostate cancer Neurological disorder History of diverticulitis without resection and postoperative ileus History of lower GI bleed with acute blood loss anemia Plan: Plan: 1. Denzel sustained a left intertrochanteric hip fracture status post fall. He has significant pain with active and passive range of motion of the left hip. He's been unable to ambulate on his left lower extremity due to his hip. We did discuss surgical intervention provides him the best chance to provide stability to his left hip and to allow him to increase his mobility and ambulation. We discussed without surgical intervention it is unlikely that he would be able to ambulate on his left lower extremity. We also discussed surgical fixation of his left hip fracture could also improve his significant pain. Patient does have dementia and does not appear to fully understand the nature of his care even though he is able to state he has pain at his left hip and that something happened to his left hip. Nursing is planning to contact the next of kin discuss treatment proceeding forward. We did discuss if the patient is able to be cleared from a medical standpoint and the next of kin agrees this is a good plan of care and is willing to sign the procedure and consent to proceed forward with surgical intervention, we will plan to proceed for surgical intervention in his left hip tomorrow, 01/11/2021. The proposed surgical intervention is a left hip intramedullary nail fixation for left intertrochanteric hip fracture. We feel surgical intervention provides the best opportunity for him to regain a more normal range of motion of his left hip and for him to be able to increase his ambulation and mobility. Patient will be seen and examined by medicine for surgical clearance. 2. Continue pain control with IV and oral medications 3. Patient to remain non-weightbearing on the left lower extremity and on bedrest 4. Patient may eat a regular diet today and will become nothing by mouth status starting at midnight on 01/11/2021 in anticipation for surgical intervention 5. Dr. Hunt in medicine is consulted for surgical clearance prior to marleen gical intervention 6. We will plan to obtain appropriate testing and imaging including CBC, BMP, UA, PT/INR, chest x-ray, and EKG 7. Anticoagulation will be held in anticipation for surgical intervention 8. We'll continue follow patient closely; plan of care will be discussed with the patient's next of kin 9. I have discussed this patient in detail with Dr. Wilder Arauz and he agrees with this plan Time with Patient: Greater than 30 (Including obtaining history, physical examination, reviewing of imaging, and dictation.)
[2021-01-10 14:57] LABS: Appearance,Urine Clear (Clear); Bilirubin,Urine Negative (Negative); Blood,Urine Negative (Negative); Color,Urine Yellow; Glucose,Urine (UA) Negative (Negative); Ketones,Urine Negative (Negative); Leukocyte Esterase,Urine Negative (Negative); Nitrite,Urine Negative (Negative); Protein,Urine Trace (Negative); Specific Gravity,Urine 1.022 (1.001-1.035); Urobilinogen,Urine <2.0 mg/dL (<2.0)
[2021-01-10] MEDS: VENLAFAXINE HCL ER 75 MG CAP PO SCH (17:25)
[2021-01-10] MEDS: CARBIDOPA-LEVODOPA 25-100 MG 1 EACH TAB PO SCH ×2 (17:25→22:03)
[2021-01-10] MEDS: levETIRAcetam 250 MG TAB PO SCH ×2 (17:26→22:03)
[2021-01-10] MEDS: MEMANTINE 10 MG TAB PO SCH ×2 (17:26→22:03)
[2021-01-10] MEDS: SODIUM CHLORIDE 0.9% 1,000 ML IV SCH ×2 (17:31→17:32)
[2021-01-10] MEDS: ENOXAPARIN 40 MG/0.4 ML SYRINGE SQ SCH (17:31)
[2021-01-10] MEDS: HYDROmorphone 0.5 MG/0.5 ML SYRINGE IVP PRN (17:41)
[2021-01-10] MEDS ORDERED: ATORVASTATIN 80 MG TAB PO SCH (20:00)
[2021-01-10] MEDS ORDERED: QUEtiapine 25 MG TAB PO SCH (20:00)
--- NOTE | 2021-01-10 20:01 | P.CONS ---
History of Present Illness - Reason for Consult Consult date: 01/10/21 Medical management Requesting physician: Angie Arauz - Chief Complaint Fall with fracture - History of Present Illness This is a 85-year-old patient, who per the EMS was called out and found the patient in a supine position up on the floor in his apartment. Patient was discovered in the supine position on the floor in his apartment by the staff that they started calling out for help. No outward signs of trauma. He denied any neck pain and head pain and because of memory issues patient could not recall what happened. Patient's son is at the bedside in the hospital. Patient's chronic stable medical conditions include dementia, GERD, Parkinson's disorder, osteoarthritis, prostate cancer. Patient at the baseline does use a walker. Able to recognize family. Needs prompting for a feeding. Cor status is DO NOT RESUSCITATE. Patient's Sabra is the POA. Son is also listed on the same. Patient somewhat tired. Unable to give much of a history currently. Admitting review of systems patient cannot tell currently rather sedated./Tired Past medical history to include: Dementia, GERD, osteoarthritis, Parkinson disorder, gait dysfunction uses a walker, constipation, history of diverticulitis with bowel resection, prostate cancer, glaucoma anxiety depression Social history: Patient smoked for 40 years about a pack a day stopped in 1985. Alcohol rarely. . Retired Family history: Breast cancer Physical examination: VITAL SIGNS: Afebrile, 62, 18, 140/75, 96% on room air GENERAL: BMI 25.8, laying in bed, tired, arousable. EYES: Pupils equal. Conjunctiva normal. HEENT: External appearance of nose and ears normal, oral cavity grossly normal. NECK: JVD not raised; masses not palpable. HEART: First and second heart sounds are normal; no edema. LUNGS: Respiratory rate normal; decreased breath sounds. ABDOMEN: Soft, nontender, liver spleen not palpable, no masses palpable. PSYCH: Unable to assess as patient other tired.l. NEUROLOGICAL: Cranial nerves grossly intact; no facial asymmetry, power and sensation grossly intact. MUSCULAR skeletal: Evidence of OA in multiple joints. Limited range of motion of the left hip. LYMPHATICS: No lymph nodes palpable in the axilla and neck INVESTIGATIONS, reviewed in the clinical context: WBC 8.3 hemoglobin 13.4 platelets 211 potassium 3.9 BUN 23 creatinine 1.01 UA trace protein EKG tracing personally reviewed by me-paced rhythm , rate 62, Chest x-ray film personally reviewed by me-cardiomegaly. Pacemaker CT brain: Age-related atrophy and chronic small vessel ischemic changes. X-ray hip complete left: Acute comminuted ID fractured left femur. No dislocation. Assessment and plan: -Acute left femur fracture secondary to fall. No dislocation. -Idiopathic Parkinson's disease Sinemet 2500 one tablet by mouth twice a day -Hyperlipidemia Lipitor 80 mg daily at bedtime -GERD Nexium 40 mg daily -Chronic idiopathic insomnia Seroquel 75 mg daily at bedtime -Depression Effexor XL 75 mg a day -Chronic constipation On laxatives -Chronic gait dysfunction, to baseline uses a walker Fall precautions -Advanced cognitive impairment, known vascular dementia Namenda 10 mg twice a day Exelon 0.46 mg patch -DO NOT RESUSCITATE Cardiovascular, perioperative risk assessment: This is a elderly gentleman 85 his age. Multiple chronic conditions. Very limited excess tolerance uses a walker. Frail. No absolute cardiac medications to surgery. No known active cardiac symptoms. Patient is a high risk for all complications given his comorbidities. Otherwise patient is medically stable to proceed. This was discussed with patient's out of the bedside. No further cardiac testing is indicated this point. Telemetry monitoring. Thank you Dr. Garza Past Medical History Past Medical History: Cancer, Dementia, Eye Disorder, GERD/Reflux, Musculoskeletal Disorder, Neurologic Disorder, Osteoarthritis (OA) Additional Past Medical History / Comment(s): parkinson's newly diagnosed, hiatal hernia, constipation, diverticulitis with bowel resection and post op ileus, lower GI bleed with acute blood loss anemia, prostate cancer, 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 History of Any Multi-Drug Resistant Organisms: None Reported Past Surgical History: Bowel Resection, Hernia Repair, Prostate Surgery Additional Past Surgical History / Comment(s): 01/26/16 low anterior resection, prostatectomy, umbilical hernia repair and inguinal hernia repair EGD/colonoscopies/polypectomy, bilateral cataract removals, bilateral procedures for glaucoma. Past Anesthesia/Blood Transfusion Reactions: No Reported Reaction Additional Past Anesthesia/Blood Transfusion Reaction / Comm: Pt has received blood in past without reaction. Past Psychological History: Anxiety, Depression Smoking Status: Unknown if ever smoked Past Alcohol Use History: Rare Past Drug Use History: None Reported - Past Family History Sister(s) History Unknown: Yes Family Medical History: Cancer Additional Family Medical History / Comment(s): Breast cancer. Daughter(s) History Unknown: Yes Family Medical History: Cancer Additional Family Medical History / Comment(s): Breast cancer Father Family Medical History: No Reported History Additional Family Medical History / Comment(s): Father lived to be in his early 90's. Medications and Allergies Home Medications Medication Instructions Recorded Confirmed Type Memantine [Namenda] 10 mg PO BID@08,199912/25/15 01/10/21 History Venlafaxine HCl ER [Effexor XR] 75 mg PO DAILY@0800 12/25/15 01/10/21 History Esomeprazole Magnesium [NexIUM] 40 mg PO DAILY@0800 01/23/16 01/10/21 History Carbidopa-Levodopa 25-100 mg 1 tab PO BID@0800,199910/06/17 01/10/21 History [Sinemet 25-100 mg] QUEtiapine FUMARATE [SEROquel] 25 mg PO HS@199911/04/19 01/10/21 History Acetaminophen Suppository [Tylenol 650 mg RECTAL Q4H PRN 01/10/21 01/10/21 History Suppository] Acetaminophen Tab [Tylenol] 325 mg PO DAILY@0801/10/21 01/10/21 History Ammonium Lactate Cream [Lac-Hydrin 1 applic TOPICAL BID PRN 01/10/21 01/10/21 History 12% Cream] Ativan 2mg/Ml 0.5 - 1 mg PO Q4H PRN 01/10/21 History Atorvastatin Calcium [Lipitor] 80 mg PO HS@199901/10/21 01/10/21 History Clopidogrel Bisulfate [Plavix] 75 mg PO DAILY@0800 01/10/21 01/10/21 History Haldol 2mg/Ml 0.5 - 1 mg SUBLINGUAL Q4H PRN 01/10/21 01/10/21 History Hyoscyamine Sulfate [Levsin] 0.125 - 0.25 mg SUBLINGUAL Q4H PRN 01/10/21 01/10/21 History Multivitamins, Thera [Multivitamin 1 tab PO DAILY@0800 01/10/21 01/10/21 History (formulary)] Prochlorperazine Suppository 25 mg RECTAL Q12H PRN 01/10/21 01/10/21 History [Compazine] Psyllium Husk (with Sugar) 1 dose PO DAILY@0800 01/10/21 01/10/21 History [Metamucil Powder] QUEtiapine [SEROquel] 50 mg PO HS@199901/10/21 01/10/21 History Rivastigmine 4.6MG/24Hr Patch 1 patch TRANSDERM DAILY@0800 01/10/21 01/10/21 History [Exelon 4.6MG/24Hr Patch] Sennosides/Docusate Sodium [Senna 1 - 2 cap PO DAILY PRN 01/10/21 01/10/21 History Plus 8.6-50 mg Softgel] Vit C/E/Zn/Coppr/Lutein/Zeaxan 1 cap PO BID@0800,199901/10/21 01/10/21 History [Preservision Areds 2 Softgel] bisacodyL 10 mg RECTAL Q72H PRN 01/10/21 01/10/21 History levETIRAcetam [Keppra] 250 mg PO BID@0800,199901/10/21 01/10/21 History Allergies Allergy/AdvReac Type Severity Reaction Status Date / Time No Known Allergies Allergy Verified 01/10/21 08:21 Physical Exam Vitals: Vital Signs Temp Pulse Resp BP Pulse Ox 01/10/21 07:49 62 18 144/75 96 01/10/21 05:49 97.7 F 65 18 174/92 93 L Intake and Output 01/09/21 01/10/21 01/10/21 22:59 06:59 14:59 Other: Weight 83.915 kg Results CBC & Chem 7: 01/10/21 06:13 01/10/21 06:13 Labs: Abnormal Lab Results - Last 24 Hours (Table) 01/10/21 01/10/21 Range/Units 06:13 06:13 RBC 4.12 L (4.30-5.90) m/uL BUN 23 H (9-20) mg/dL
[2021-01-10] MEDS ORDERED: HALOPERIDOL ORAL SOLN 10 MG/5 ML CUP PO PRN (20:02)
[2021-01-10] MEDS: QUEtiapine 50 MG TAB PO SCH (22:04)
[2021-01-10] MEDS ORDERED: QUEtiapine 25 MG TAB PO STA (23:02)
[2021-01-10] MEDS ORDERED: QUEtiapine 50 MG TAB PO STA (23:02)
[2021-01-10] MEDS ORDERED: CARBIDOPA-LEVODOPA 25-100 MG 1 EACH TAB PO STA (23:04)
[2021-01-10] MEDS ORDERED: ATORVASTATIN 80 MG TAB PO STA (23:04)
[2021-01-10] MEDS ORDERED: levETIRAcetam 250 MG TAB PO STA (23:05)
[2021-01-10] MEDS ORDERED: MEMANTINE 10 MG TAB PO STA (23:06)
[2021-01-11] MEDS: HYDROmorphone 0.5 MG/0.5 ML SYRINGE IVP PRN ×2 (00:33→20:03)
[2021-01-11] MEDS: SODIUM CHLORIDE 0.9% 1,000 ML IV SCH ×4 (02:25→15:33)
[2021-01-11] MEDS: PANTOPRAZOLE 40 MG TABLET PO SCH ×2 (08:19→08:20)
[2021-01-11] MEDS: CARBIDOPA-LEVODOPA 25-100 MG 1 EACH TAB PO SCH ×2 (08:20→16:17)
[2021-01-11] MEDS: levETIRAcetam 250 MG TAB PO SCH ×3 (08:28→20:09)
[2021-01-11] MEDS: MEMANTINE 10 MG TAB PO SCH (08:45)
[2021-01-11] MEDS: RIVASTIGMINE 4.6MG/24HR PATCH TRANSDERM SCH (08:46)
[2021-01-11] MEDS: MULTIVITAMINS, THERA 1 EACH TAB PO SCH (08:46)
[2021-01-11] MEDS: ENOXAPARIN 40 MG/0.4 ML SYRINGE SQ SCH (08:46)
[2021-01-11] MEDS: VENLAFAXINE HCL ER 75 MG CAP PO SCH (08:46)
[2021-01-11] MEDS: PSYLLIUM HUSK 100% 6 GM PACKET PO SCH (08:46)
[2021-01-11] MEDS ORDERED: IV FLUID CONTINUATION 1,000 ML IV ONE (08:47)
--- NOTE | 2021-01-11 10:41 | P.CRDCN ---
History of Present Illness History of present illness: Patient presented with a fall and intertrochanteric femur fracture He has a His bundle pacemaker I will order a 2-D echo and Doppler study His twelve-lead EKG shows non-selective His bundle pacing He will need a magnet over the pacemaker during the procedure which can be taken off thereafter We will see in full consultation CBC is normal Electrolytes are normal. Creatinine is normal Past Medical History Past Medical History: Cancer, Dementia, Eye Disorder, GERD/Reflux, Musculoskeletal Disorder, Neurologic Disorder, Osteoarthritis (OA) Additional Past Medical History / Comment(s): parkinson's lewy body dementia, hiatal hernia, constipation, diverticulitis with bowel resection and post op ileus, lower GI bleed with acute blood loss anemia, prostate cancer, 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 History of Any Multi-Drug Resistant Organisms: None Reported Past Surgical History: Bowel Resection, Hernia Repair, Pacemaker, Prostate Surgery Additional Past Surgical History / Comment(s): 01/26/16 low anterior resection, prostatectomy, umbilical hernia repair and inguinal hernia repair EGD/colonoscopies/polypectomy, bilateral cataract removals, bilateral procedures for glaucoma. Past Anesthesia/Blood Transfusion Reactions: No Reported Reaction Additional Past Anesthesia/Blood Transfusion Reaction / Comment(s): Pt has received blood in past without reaction. Type of Cardiac Device: Loop Device Placement Date:: 12/22/2017 Past Psychological History: Anxiety, Depression Additional Psychological History / Comment(s): has vascular dementia. Smoking Status: Former smoker Additional Past Alcohol Use History / Comment(s): Pt started smoking in 1946 smoked 1ppd Past Drug Use History: None Reported - Past Family History Sister(s) History Unknown: Yes Family Medical History: Cancer Additional Family Medical History / Comment(s): Breast cancer. Daughter(s) History Unknown: Yes Family Medical History: Cancer Additional Family Medical History / Comment(s): Breast cancer Father Family Medical History: No Reported History Additional Family Medical History / Comment(s): Father lived to be in his early 90's. Medications and Allergies Home Medications Medication Instructions Recorded Confirmed Type Memantine [Namenda] 10 mg PO BID@0800,199912/25/15 01/10/21 History Venlafaxine HCl ER [Effexor XR] 75 mg PO DAILY@0800 12/25/15 01/10/21 History Esomeprazole Magnesium [NexIUM] 40 mg PO DAILY@0800 01/23/16 01/10/21 History Carbidopa-Levodopa 25-100 mg 1 tab PO BID@10/06/17 01/10/21 History [Sinemet 25-100 mg] QUEtiapine FUMARATE [SEROquel] 25 mg PO HS@199911/04/19 01/10/21 History Acetaminophen Suppository [Tylenol 650 mg RECTAL Q4H PRN 01/10/21 01/10/21 History Suppository] Acetaminophen Tab [Tylenol] 325 mg PO DAILY@0800 01/10/21 01/10/21 History Ammonium Lactate Cream [Lac-Hydrin 1 applic TOPICAL BID PRN 01/10/21 01/10/21 History 12% Cream] Ativan 2mg/Ml 0.5 - 1 mg PO Q4H PRN 01/10/21 History Atorvastatin Calcium [Lipitor] 80 mg PO HS@199901/10/21 01/10/21 History Clopidogrel Bisulfate [Plavix] 75 mg PO DAILY@0801/10/21 01/10/21 History Haldol 2mg/Ml 0.5 - 1 mg SUBLINGUAL Q4H PRN 01/10/21 01/10/21 History Hyoscyamine Sulfate [Levsin] 0.125 - 0.25 mg SUBLINGUAL Q4H PRN 01/10/21 01/10/21 History Multivitamins, Thera [Multivitamin 1 tab PO DAILY@0800 01/10/21 01/10/21 History (formulary)] Prochlorperazine Suppository 25 mg RECTAL Q12H PRN 01/10/21 01/10/21 History [Compazine] Psyllium Husk (with Sugar) 1 dose PO DAILY@0800 01/10/21 01/10/21 History [Metamucil Powder] QUEtiapine [SEROquel] 50 mg PO HS@199901/10/21 01/10/21 History Rivastigmine 4.6MG/24Hr Patch 1 patch TRANSDERM DAILY@0800 01/10/21 01/10/21 History [Exelon 4.6MG/24Hr Patch] Sennosides/Docusate Sodium [Senna 1 - 2 cap PO DAILY PRN 01/10/21 01/10/21 History Plus 8.6-50 mg Softgel] Vit C/E/Zn/Coppr/Lutein/Zeaxan 1 cap PO BID@08,199901/10/21 01/10/21 History [Preservision Areds 2 Softgel] bisacodyL 10 mg RECTAL Q72H PRN 01/10/21 01/10/21 History levETIRAcetam [Keppra] 250 mg PO BID@08,199901/10/21 01/10/21 History Allergies Allergy/AdvReac Type Severity Reaction Status Date / Time No Known Allergies Allergy Verified 01/10/21 08:21 Physical Exam Vitals: Vital Signs Temp Pulse Pulse Resp BP BP Pulse Ox 01/11/21 08:40 98.1 F 62 16 108/57 95 01/11/21 08:00 98.3 F 60 20 128/62 90 L 01/11/21 03:24 99.1 F 59 L 16 115/62 97 01/10/21 23:17 16 01/10/21 22:45 100.6 F H 65 18 157/85 95 01/10/21 21:00 84 16 161/84 95 01/10/21 17:00 97.5 F L 58 L 18 150/85 01/10/21 16:16 97.5 F L 58 L 18 138/90 01/10/21 16:00 97.5 F L 59 L 18 142/77 01/10/21 15:16 97.5 F L 58 L 18 140/77 01/10/21 15:00 57 L 18 01/10/21 14:29 57 L 20 140/75 96 Intake and Output 01/10/21 01/11/21 01/11/21 22:59 06:59 14:59 Output Total 500 500 Balance -500 -500 Output: Urine 500 500 Other: Voiding Method Indwelling Catheter # Voids 1 # Bowel Movements 1 Weight 83.915 kg Results 01/10/21 06:13 01/10/21 06:13 Current Medications Generic Name Dose Route Start Last Admin Trade Name Freq PRN Reason Stop Dose Admin Hydrocodone Bitart/Acetaminophen 1 each 01/10/21 14:16 Hydrocodone/Apap 5-325mg 1 Each Tab PO Q4HR PRN Mild Pain Atorvastatin Calcium 80 mg 01/10/21 20:00 01/10/21 22:04 Atorvastatin 80 Mg Tab PO Not Given HS@1999 [facility] Bisacodyl 10 mg 01/10/21 10:36 Bisacodyl 10 Mg Supp RECTAL Q72H PRN Constipation Carbidopa/Levodopa 1 each 01/10/21 10:36 01/11/21 08:20 Carbidopa-Levodopa 25-100 Mg 1 Each Tab PO 1 each BID@ [facility] Administration Enoxaparin Sodium 40 mg 01/10/21 10:45 01/11/21 08:46 Enoxaparin 40 Mg/0.4 Ml Syringe SQ Not Given DAILY [facility] Haloperidol Lactate 0.5 mg 01/10/21 20:02 Haloperidol Oral Soln 10 Mg/5 Ml Cup PO TID PRN Agitation Hydromorphone HCl 1 mg 01/10/21 08:08 01/10/21 14:27 Hydromorphone 1 Mg/Ml 1 Ml Syringe IVP 1 mg Q3HR PRN Administration Severe Pain Hydromorphone HCl 0.5 mg 01/10/21 14:16 01/11/21 00:33 Hydromorphone 0.5 Mg/0.5 Ml Syringe IVP 0.5 mg Q4HR PRN Administration Moderate Pain Sodium Chloride 1,000 mls @ 130 mls/hr 01/10/21 08:15 01/11/21 08:46 Saline 0.9% IV Not Given .Q7H42M [facility] Lactic Acid 1 applic 01/10/21 10:36 Ammonium Lactate 12% Cream 140 Gm Tube TOPICAL BID PRN DRY FEET Protocol Levetiracetam 250 mg 01/10/21 10:36 01/11/21 08:28 Levetiracetam 250 Mg Tab PO 250 mg BID@ [facility] Administration Lorazepam 0.5 mg 01/10/21 08:08 Lorazepam 2 Mg/Ml Inj IV Q6HR PRN Anxiety Memantine 10 mg 01/10/21 10:36 01/11/21 08:45 Memantine 10 Mg Tab PO Not Given BID@ [facility] Multivitamins 1 each 01/11/21 08:00 01/11/21 08:46 Multivitamins, Thera 1 Each Tab PO Not Given DAILY@0800 [facility] Naloxone HCl 0.2 mg 01/10/21 08:08 Naloxone 0.4 Mg/Ml 1 Ml Vial IV Q2M PRN Opioid Reversal Pantoprazole Sodium 40 mg 01/10/21 08:00 01/11/21 08:20 Pantoprazole 40 Mg Tablet PO 40 mg DAILY@0800 [facility] Administration Prochlorperazine Maleate 25 mg 01/10/21 10:36 Prochlorperazine Suppository 25 Mg Supp RECTAL Q12H PRN Nausea And Vomiting Psyllium Hydrophilic Mucilloid 6 gm 01/10/21 08:00 01/11/21 08:46 Psyllium Husk 100% 6 Gm Packet PO Not Given DAILY@0800 [facility] Quetiapine Fumarate 50 mg 01/10/21 20:00 01/10/21 22:04 Quetiapine 50 Mg Tab PO Not Given HS@2000 [facility] Quetiapine Fumarate 25 mg 01/10/21 20:00 01/10/21 22:04 Quetiapine 25 Mg Tab PO Not Given HS@2000 [facility] Rivastigmine 1 patch 01/10/21 08:00 01/11/21 08:46 Rivastigmine 4.6mg/24hr Patch TRANSDERM Not Given DAILY@0800 [facility] Venlafaxine HCl 75 mg 01/10/21 10:36 01/11/21 08:46 Venlafaxine Hcl Er 75 Mg Cap PO Not Given DAILY@0800 [facility] Intake and Output 01/10/21 01/11/21 01/11/21 22:59 06:59 14:59 Output Total 500 500 Balance -500 -500 Output: Urine 500 500 Other: Voiding Method Indwelling Catheter # Voids 1 # Bowel Movements 1 Weight 83.915 kg 01/10/21 06:13 01/10/21 06:13
[2021-01-11] MEDS ORDERED: fentaNYL (PF) 50 MCG/ML 2 ML AMP ONE (11:40)
[2021-01-11] MEDS ORDERED: SODIUM CHLORIDE 0.9% 100 ML BAG ONE (11:40)
[2021-01-11] MEDS ORDERED: ePHEDrine SULFATE/0.9% NACL/PF 50 MG/5 ML SYRINGE IV ONE (11:40)
[2021-01-11] MEDS ORDERED: PROPOFOL 10 MG/ML 20 ML VIAL IV ONE (11:40)
[2021-01-11] MEDS ORDERED: LIDOCAINE 1% INJ 10MG/ML (20 ML MDV) ONE (11:40)
[2021-01-11] MEDS ORDERED: SUCCINYLCHOLINE CHLORIDE 100 MG/5 ML SYR IV ONE (11:40)
[2021-01-11] MEDS ORDERED: ceFAZolin 1,000 MG VIAL ONE (11:40)
[2021-01-11] MEDS ORDERED: LACTATED RINGERS 1,000 ML IV ONE (12:10)
[2021-01-11] MEDS ORDERED: ceFAZolin 1,000 MG in SODIUM CHLORIDE 0.9% 1,000 ML IRRIGATION ONE (12:10)
--- NOTE | 2021-01-11 12:43 | P.CRDCN ---
History of Present Illness History of present illness: This is a 85 year old male with a past medical history of sick sinus syndrome s/p permanent pacemaker implantation, hypertension, CVA in 2019, dementia, Parkinson's. Patient presented to the emergency department with significant pain in his left leg. He was found to have intertrochanteric left femur fracture. Cardiology was consulted for cardiac clearance for surgery. Echocardiogram was ordered. Patient was not seen at bedside, he was already down for surgery and was not seen at bedside for full cardiology consultation. Chart Reviewed: Hip x-ray revealed acute fracture left femur Chest x-ray revealed no active cardiopulmonary disease. CT brain revealed age-related atrophic and chronic small vessel ischemic change without acute intracranial process EKG revealed non-selective His bundle pacing Laboratory data review WBC 8.3, hemoglobin 13.4, platelets 211, sodium 140, potassium 3.9, BUN 23, serum creatinine 1.0, COVID-19 PCR negative Echocardiogram in October 2019 revealed an EF 55%, LA is mildly dilated, mild aortic regurgitation, mild mitral regurgitation, mild tricuspid regurgitation, moderate pulmonary hypertension ASSESSMENT: Acute left femur fracture secondary to fall Parkinson's disease Sick sinus syndrome s/p permanent pacemaker implantation Hypertension CVA in 2019 Dementia PLAN: Patient was not seen at bedside, he was already down for surgery and was not seen at bedside for full cardiology consultation. Echocardiogram ordered We will follow the patient as needed. Please reach out with further questions or concerns. Past Medical History Past Medical History: Cancer, Dementia, Eye Disorder, GERD/Reflux, Musc uloskeletal Disorder, Neurologic Disorder, Osteoarthritis (OA) Additional Past Medical History / Comment(s): parkinson's lewy body dementia, hiatal hernia, constipation, diverticulitis with bowel resection and post op ileus, lower GI bleed with acute blood loss anemia, prostate cancer, 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 History of Any Multi-Drug Resistant Organisms: None Reported Past Surgical History: Bowel Resection, Hernia Repair, Pacemaker, Prostate Surgery Additional Past Surgical History / Comment(s): 01/26/16 low anterior resection, prostatectomy, umbilical hernia repair and inguinal hernia repair EGD/colonoscopies/polypectomy, bilateral cataract removals, bilateral procedures for glaucoma. Past Anesthesia/Blood Transfusion Reactions: No Reported Reaction Additional Past Anesthesia/Blood Transfusion Reaction / Comment(s): Pt has received blood in past without reaction. Type of Cardiac Device: Loop Device Placement Date:: 12/22/2017 Past Psychological History: Anxiety, Depression Additional Psychological History / Comment(s): has vascular dementia. Smoking Status: Former smoker Additional Past Alcohol Use History / Comment(s): Pt started smoking in 1946 smoked 1ppd Past Drug Use History: None Reported - Past Family History Sister(s) History Unknown: Yes Family Medical History: Cancer Additional Family Medical History / Comment(s): Breast cancer. Daughter(s) History Unknown: Yes Family Medical History: Cancer Additional Family Medical History / Comment(s): Breast cancer Father Family Medical History: No Reported History Additional Family Medical History / Comment(s): Father lived to be in his early 90s. Medications and Allergies Home Medications Medication Instructions Recorded Confirmed Type Memantine [Namenda] 10 mg PO BID@0800,199912/25/15 01/10/21 History Venlafaxine HCl ER [Effexor XR] 75 mg PO DAILY@0800 12/25/15 01/10/21 History Esomeprazole Magnesium [NexIUM] 40 mg PO DAILY@0800 01/23/16 01/10/21 History Carbidopa-Levodopa 25-100 mg 1 tab PO BID@08,199910/06/17 01/10/21 History [Sinemet 25-100 mg] QUEtiapine FUMARATE [SEROquel] 25 mg PO HS@199911/04/19 01/10/21 History Acetaminophen Suppository [Tylenol 650 mg RECTAL Q4H PRN 01/10/21 01/10/21 History Suppository] Acetaminophen Tab [Tylenol] 325 mg PO DAILY@0800 01/10/21 01/10/21 History Ammonium Lactate Cream [Lac-Hydrin 1 applic TOPICAL BID PRN 01/10/21 01/10/21 History 12% Cream] Ativan 2mg/Ml 0.5 - 1 mg PO Q4H PRN 01/10/21 History Atorvastatin Calcium [Lipitor] 80 mg PO HS@199901/10/21 01/10/21 History Clopidogrel Bisulfate [Plavix] 75 mg PO DAILY@0800 01/10/21 01/10/21 History Haldol 2mg/Ml 0.5 - 1 mg SUBLINGUAL Q4H PRN 01/10/21 01/10/21 History Hyoscyamine Sulfate [Levsin] 0.125 - 0.25 mg SUBLINGUAL Q4H PRN 01/10/21 01/10/21 History Multivitamins, Thera [Multivitamin 1 tab PO DAILY@0800 01/10/21 01/10/21 History (formulary)] Prochlorperazine Suppository 25 mg RECTAL Q12H PRN 01/10/21 01/10/21 History [Compazine] Psyllium Husk (with Sugar) 1 dose PO DAILY@0800 01/10/21 01/10/21 History [Metamucil Powder] QUEtiapine [SEROquel] 50 mg PO HS@199901/10/21 01/10/21 History Rivastigmine 4.6MG/24Hr Patch 1 patch TRANSDERM DAILY@0800 01/10/21 01/10/21 History [Exelon 4.6MG/24Hr Patch] Sennosides/Docusate Sodium [Senna 1 - 2 cap PO DAILY PRN 01/10/21 01/10/21 History Plus 8.6-50 mg Softgel] Vit C/E/Zn/Coppr/Lutein/Zeaxan 1 cap PO BID@0800,199901/10/21 01/10/21 History [Preservision Areds 2 Softgel] bisacodyL 10 mg RECTAL Q72H PRN 01/10/21 01/10/21 History levETIRAcetam [Keppra] 250 mg PO BID@0800,199901/10/21 01/10/21 History Allergies Allergy/AdvReac Type Severity Reaction Status Date / Time No Known Allergies Allergy Verified 01/10/21 08:21 Physical Exam Vitals: Vital Signs Temp Pulse Pulse Resp BP BP Pulse Ox 01/11/21 08:40 98.1 F 62 16 108/57 95 01/11/21 08:00 98.3 F 60 18 128/62 90 L 01/11/21 03:24 99.1 F 59 L 16 115/62 97 01/10/21 23:17 16 01/10/21 22:45 100.6 F H 65 18 157/85 95 01/10/21 21:00 84 16 161/84 95 01/10/21 17:00 97.5 F L 58 L 18 150/85 01/10/21 16:16 97.5 F L 58 L 18 138/90 01/10/21 16:00 97.5 F L 59 L 18 142/77 01/10/21 15:16 97.5 F L 58 L 18 140/77 01/10/21 15:00 57 L 18 01/10/21 14:29 57 L 20 140/75 96 Intake and Output 01/10/21 01/11/21 01/11/21 22:59 06:59 14:59 Intake Total 250 Output Total 500 500 Balance -500 -500 250 Intake: IV 250 Output: Urine 500 500 Other: Voiding Method Indwelling Catheter Indwelling Catheter # Voids 1 # Bowel Movements 1 Weight 83.915 kg Results 01/10/21 06:13 01/10/21 06:13 Current Medications Generic Name Dose Route Start Last Admin Trade Name Freq PRN Reason Stop Dose Admin Hydrocodone Bitart/Acetaminophen 1 each 01/10/21 14:16 Hydrocodone/Apap 5-325mg 1 Each Tab PO Q4HR PRN Mild Pain Atorvastatin Calcium 80 mg 01/10/21 20:00 01/10/21 22:04 Atorvastatin 80 Mg Tab PO Not Given HS@1999 [facility] Bisacodyl 10 mg 01/10/21 10:36 Bisacodyl 10 Mg Supp RECTAL Q72H PRN Constipation Carbidopa/Levodopa 1 each 01/10/21 10:36 01/11/21 08:20 Carbidopa-Levodopa 25-100 Mg 1 Each Tab PO 1 each BID@08,1999 [facility] Administration Enoxaparin Sodium 40 mg 01/10/21 10:45 01/11/21 08:46 Enoxaparin 40 Mg/0.4 Ml Syringe SQ Not Given DAILY [facility] Haloperidol Lactate 0.5 mg 01/10/21 20:02 Haloperidol Oral Soln 10 Mg/5 Ml Cup PO TID PRN Agitation Hydromorphone HCl 1 mg 01/10/21 08:08 01/10/21 14:27 Hydromorphone 1 Mg/Ml 1 Ml Syringe IVP 1 mg Q3HR PRN Administration Severe Pain Hydromorphone HCl 0.5 mg 01/10/21 14:16 01/11/21 00:33 Hydromorphone 0.5 Mg/0.5 Ml Syringe IVP 0.5 mg Q4HR PRN Administration Moderate Pain Sodium Chloride 1,000 mls @ 130 mls/hr 01/10/21 08:15 01/11/21 08:46 Saline 0.9% IV Not Given .Q7H42M [facility] Lactic Acid 1 applic 01/10/21 10:36 Ammonium Lactate 12% Cream 140 Gm Tube TOPICAL BID PRN DRY FEET Protocol Levetiracetam 250 mg 01/10/21 10:36 01/11/21 08:28 Levetiracetam 250 Mg Tab PO 250 mg BID@ [facility] Administration Lorazepam 0.5 mg 01/10/21 08:08 Lorazepam 2 Mg/Ml Inj IV Q6HR PRN Anxiety Memantine 10 mg 01/10/21 10:36 01/11/21 08:45 Memantine 10 Mg Tab PO Not Given BID@ [facility] Multivitamins 1 each 01/11/21 08:00 01/11/21 08:46 Multivitamins, Thera 1 Each Tab PO Not Given DAILY@0800 [facility] Naloxone HCl 0.2 mg 01/10/21 08:08 Naloxone 0.4 Mg/Ml 1 Ml Vial IV Q2M PRN Opioid Reversal Pantoprazole Sodium 40 mg 01/10/21 08:00 01/11/21 08:20 Pantoprazole 40 Mg Tablet PO 40 mg DAILY@0800 [facility] Administration Prochlorperazine Maleate 25 mg 01/10/21 10:36 Prochlorperazine Suppository 25 Mg Supp RECTAL Q12H PRN Nausea And Vomiting Psyllium Hydrophilic Mucilloid 6 gm 01/10/21 08:00 01/11/21 08:46 Psyllium Husk 100% 6 Gm Packet PO Not Given DAILY@0800 [facility] Quetiapine Fumarate 50 mg 01/10/21 20:00 01/10/21 22:04 Quetiapine 50 Mg Tab PO Not Given HS@1999 [facility] Quetiapine Fumarate 25 mg 01/10/21 20:00 01/10/21 22:04 Quetiapine 25 Mg Tab PO Not Given HS@1999 [facility] Rivastigmine 1 patch 01/10/21 08:00 01/11/21 08:46 Rivastigmine 4.6mg/24hr Patch TRANSDERM Not Given DAILY@0800 [facility] Venlafaxine HCl 75 mg 01/10/21 10:36 01/11/21 08:46 Venlafaxine Hcl Er 75 Mg Cap PO Not Given DAILY@0800 [facility] Intake and Output 01/10/21 01/11/21 01/11/21 22:59 06:59 14:59 Intake Total 250 Output Total 500 500 Balance -500 -500 250 Intake: IV 250 Output: Urine 500 500 Other: Voiding Method Indwelling Catheter Indwelling Catheter # Voids 1 # Bowel Movements 1 Weight 83.915 kg 01/10/21 06:13 01/10/21 06:13
[2021-01-11] MEDS ORDERED: BENZOCAINE/MENTHOL LOZENG 1 EACH LOZENGE MUCOUS MEM PRN (13:21)
[2021-01-11] MEDS ORDERED: NALOXONE 0.4 MG/ML 1 ML VIAL IV PRN (13:21)
[2021-01-11] MEDS ORDERED: ONDANSETRON 4 MG/2 ML VIAL IVP PRN (13:21)
[2021-01-11] MEDS ORDERED: HYDROmorphone 0.5 MG/0.5 ML SYRINGE IVP PRN (13:21)
[2021-01-11] MEDS ORDERED: HYDROcodone/APAP 5-325MG 1 EACH TAB PO PRN (13:21)
--- NOTE | 2021-01-11 13:29 | P.OP ---
Date of Procedure: 01/11/21 Preoperative Diagnosis: Left hip intertrochanteric femur fracture, acute traumatic due to follow Postoperative Diagnosis: Same Anesthesia: GETA Pathology: other (Proximal femurs remaining sent to pathology) Condition: stable Disposition: PACU Description of Procedure: Preoperative diagnosis: Left Intertrochanteric femoral hip fracture, acute traumatic due to a fall Postoperative diagnosis: Same Procedure: intertrochanteric hip screw placement Use of fluoroscopic guidance Closed reduction Surgeon: Dr. Davonte Gouldt.: Sasha her certified surgical first assistant who is present that the entire the case persistence during positioning dissection exposure placement of hardware and closure Anesthesia: Gen. per Dr. Dr. Alejandra Estimated blood loss: Approximately 300 mL Components implanted: [employer] InterTAN 130 intramedullary hip screw with 110 mm lag screw Disposition: To recovery room in good stable condition Operative indications The patient sustained a injury and suffered a hip fracture at the inter- trochanteric area of her femur which was displaced and angulated. It was an unwitnessed fall as the patient is severely demented with Parkinson's. He was not found have any other injuries but was found have an acute displaced intertrochanteric hip fracture and was unable to obtain any sort of mobilization without excruciating pain. We were involved in the case in regard to his hip fracture. After evaluation it was determined that they would be a candidate for hip internal fixation and stabilization via surgical intervention. This would give them the best chance of mobilization and ambulation. We discussed the range of treatment options from conservative to surgical. We discussed the case at length with the patient as well as with his sons who are power of patent prosecution attorney. They elected proceed with surgical intervention. We answered their questions to the best of our ability healing which they can understand. They signed an informed consent. Operative summary After obtaining informed consent evaluation by anesthesia, preoperative evaluation and clearance for medical service, the patient was identified and prepped Gonzales area and the surgical site was marked. There brought to the operating room where the given appropriate anesthesia by the anesthesia department in standard fashion without any complications. Once the anesthesia was established we were able to position the patient. The patient was placed on a fracture table with a well-padded perineal post. The operative side was placed in a foot rodriguez stirrup which was well-padded well molded and placed in gentle in-line traction. The nonoperative leg on the right was placed in a padded stirrup. C-arm was brought in and we performed a closed reduction technique at the hip on the left. We are able to get good alignment good position of the intertrochanteric fracture with gentle reduction techniques and traction utilizing the fracture table. Once patient was well positioned lower extremity was prepped and draped in normal standard sterile fashion. An appropriate keystone protocol and timeout was completed and were able to proceed with surgery. He started point just proximal to the greater trochanter at the left hip was established and a median incision approximately 2 inches in length approximately to the greater tro chanter. I dissected down through the fascia and I was able to expose the tip of the greater trochanter. A sharp starting hole was established at the tip of the greater trochanter near the junction of the anterior and middle third. Positioning was confirmed with C-arm guidance. I was able to start the awl into the bone and then use a guidepin at the starting point establish down to the level of the lesser trochanter at the intramedullary space. I then used a starting reamer for the greater trochanter placed over the guidepin and reamed down appropriately under C-arm guidance. I was unable to place a guidepin into the intramedullary aspect of the femur and then reamed appropriately to the appropriate length. The positioning was confirmed on C-arm guidance. With the femur appropriately reamed I then chose the appropriate size intramedullary anyi which was connected to the appropriate jig. The jig was checked for alignment. The area was copiously irrigated and suctioned dry and we're able place the anyi at intramedullary space through the starting hole appropriately. It was seated down for appropriate position to align the leg pain into the femoral neck and head. A second incision was established at the site for the placement of the lag screw area and the guide was established at the lateral aspect of the femur and a guidepin was drilled into the femoral neck and head and near center center position. With this appropriate alignment and position where a reamer over the guidepin making sure not to penetrate the articular surface. The position was confirmed on C-arm guidance in AP and lateral positions. With this established we were able to place the appropriate size lag screw after measuring. Lag screw was placed into the femoral neck and head good alignment good position with excellent bony purchase. It was appropriately aligned and we placed a locking screw through the anyi appropriately and checked that the position was established. I was able to drill and place the compression screw immediately adjacent and inferior to the lag screw which gave good compression across the fracture site in good alignment and position. With the area in good position able place a distal locking screw. We utilized the guide sleeve a separate incision was made at the skin. The guide sleeve was placed in the lateral aspect of the femur and the distal locking screw hole was established through the femur and distal locking hole of the intramedullary anyi. It was measured appropriately and a distal locking screw was placed in good alignment and good position with excellent bony purchase. The position was checked to make sure it was through the appropriate hole in the intramedullary anyi. With this established we're able to remove the jig completely from the anyi and final images were taken which showed excellent alignment and position of the hardware and the fracture. With the anyi in place and the fracture stable, although the incision sites were copiously irrigated and suctioned dry. Good hemostasis was maintained. Deep fascial layers were closed with #1 Vicryl. Subcu tissue was closed with 2-0 Vicryl. Subcuticular tissues closed with 3-0 Vicryl. Was are cleaned and dried with dressed with exofin glue appropriate dressings and tape. Drapes were broken down, the hip was held in stable position with the post being removed safely once the positioning was stabilized. The patient was then transferred back to their hospital bed being careful to maintain the hip and C- spine alignment and airway. Once stable to patient was transferred back to the postanesthesia care unit to be readmitted for pain control and DVT prophylaxis medical management and monitoring and mobilization we will continue follow patient closely throughout their postoperative course.
--- NOTE | 2021-01-11 14:30 | XR ---
EXAMINATION TYPE: XR Hip Limited LT, FL guidance operating room DATE OF EXAM: 01/11/2021 Comparison: 01/10/2021 Clinical History: 85-year-old male LEFT FEMUR FX Findings: Intraoperative fluoroscopy with images demonstrating anterograde intramedullary nailing with an screw fixation across the patient's left intertrochanteric fracture. FLUOROSCOPY Fluoroscopy time of 1 minute 12 seconds was used during left IT fracture fixation. 3 image/s documen t/s the procedure. Impression: No acute cardiopulmonary process.
[2021-01-11] MEDS: HYDROmorphone 1 MG/ML 1 ML SYRINGE IVP PRN (14:54)
[2021-01-11 15:32] LABS: Basophils % (A) 0 %; Eosinophils # (A) 0.1 k/uL (0-0.7); Eosinophils % (A) 1 %; HCT 35.9 % (39.0-53.0); HGB 11.9 gm/dL (13.0-17.5); Lymphocytes # (A) 0.9 k/uL (1.0-4.8); Lymphocytes % (A) 8 %; MCH 33.4 pg (25.0-35.0); MCHC 33.2 g/dL (31.0-37.0); MCV 100.4 fL (80.0-100.0); Macrocytosis Slight; Mean Platelet Volume 7.7; Monocytes # (A) 0.9 k/uL (0-1.0); Monocytes % (A) 8 %; Neutrophils # (A) 9.4 k/uL (1.3-7.7); Neutrophils % (A) 82 %; Platelet Count 179 k/uL (150-450); RBC 3.58 m/uL (4.30-5.90); RDW 13.9 % (11.5-15.5); WBC 11.6 k/uL (3.8-10.6)
[2021-01-11] MEDS: QUEtiapine 50 MG TAB PO SCH (20:03)
[2021-01-11] MEDS: ACETAMINOPHEN TAB 325 MG TAB PO PRN (20:03)
[2021-01-11] MEDS ORDERED: ACETAMINOPHEN IV (For NPO) 1,000 MG in EMPTY BAG 1 BAG IVPB PRN (20:16)
[2021-01-11] MEDS: levETIRAcetam IV 250 MG in SODIUM CHLORIDE 0.9% 100 ML IVPB SCH (21:42)
[2021-01-12] MEDS: SODIUM CHLORIDE 0.9% 1,000 ML IV SCH ×2 (03:55→22:35)
[2021-01-12] MEDS: HYDROmorphone 0.5 MG/0.5 ML SYRINGE IVP PRN (05:35)
[2021-01-12] MEDS: levETIRAcetam IV 250 MG in SODIUM CHLORIDE 0.9% 100 ML IVPB SCH ×2 (08:47→22:34)
[2021-01-12] MEDS: SENNOSIDES-DOCUSATE SODIUM 1 EACH TAB PO SCH (08:47)
[2021-01-12] MEDS: PANTOPRAZOLE 40 MG TABLET PO SCH (08:47)
[2021-01-12] MEDS: MULTIVITAMINS, THERA 1 EACH TAB PO SCH (08:47)
[2021-01-12] MEDS: CARBIDOPA-LEVODOPA 25-100 MG 1 EACH TAB PO SCH ×2 (08:49→15:41)
[2021-01-12] MEDS: PSYLLIUM HUSK 100% 6 GM PACKET PO SCH (08:49)
[2021-01-12] MEDS: ENOXAPARIN 40 MG/0.4 ML SYRINGE SQ SCH (08:49)
--- NOTE | 2021-01-12 09:00 | P.PN ---
Progress Note - Text Progress Note Date: 01/12/21 Orthopedics: History of present illness: Patient is a pleasant 85-year-old male with a history of dementia who is seen at bedside for follow up evaluation of his left hip. He is status post left hip intramedullary nail fixation for left intratrochanteric hip fracture performed yesterday, 01/11/2021. He is currently resting comfortably in bed. Patient is arousable but continues to have difficulty with answering questions. He does not appear to experience any pain with palpation around his surgical site at the left hip. He is able to wiggle toes and perform dorsiflexion and plantar flexion on the left. Patient continues to be seen and examined by Dr. Hunt in medicine. Patient has been discussed in detail case management this morning who states they're planning to follow-up with the patient and family this morning to discuss discharge planning including the possibility of discharge back to [facility] with home therapy versus rehab versus hospice care. Physical Exam Intramedullary [place] for Intertrochanteric Fracture: Status post surgical day number 1 Patient is examined lying in bed Patient is asleep but arousable Vital signs stable Adequate excursion with deep inspiration and expiration No signs or symptoms of DVT; no calf pain Lower extremity cuffs in place bilaterally Dressing of the left hip is clean, dry, and intact; no erythema, purulence, or signs of infection No pain with palpation over the surgical sites Dorsiflexion, plantarflexion, and extensor hallucis longus positive sustained on the left Assessment: Status post left intramedullary nail fixation for left intertrochanteric hip fracture Status post fall Left hip pain Unable to ambulate on the left lower extremity due to hip Dementia Recently diagnosed Parkinson's disease History of prostate cancer Neurological disorder History of diverticulitis without resection and postoperative ileus History of lower GI bleed with acute blood loss anemia Plan: 1. Patient to remain nonweightbearing on the left lower extremity; patient may work with physical therapy to increase mobility and ambulation 2. Keep dressing over the left hip clean, dry, and intact 3. Discontinue Gonzales catheter when patient is able to increase mobility and ambulation 4. Continue pain control with oral [place] and IV Dilaudid as needed for pain control MAPS has been reviewed today, 01/12/2021, with an Overall Overdose Risk Score of 340. An "Opiod Start Talking" Form has been signed and placed in the patient's chart. A prescription has been written for [place] 5 mg/325 mg 1 tab every 6 hours as needed for pain, dispensed #28. 5. Continue with anticoagulation therapy with Lovenox as prescribed by medicine; medicine to manage anticoagulation postoperatively 6. Medicine to continue following the patient for their other medical diagnosis 7. We'll continue to follow the patient closely; depending on the patient's progress, we may plan for discharge as early as tomorrow, 01/13/2021, back to [facility] with home health care versus rehab versus hospice after case management discusses discharge options with the family. Patient will also need to be cleared from a discharge from a medical standpoint. 8. Patient can follow-up with You Reyna PA-C or Dr. Wilder Arauz at [facility] in 2-3 weeks following discharge
--- NOTE | 2021-01-12 11:47 | ECHOF ---
Referral Reason:preop MEASUREMENTS -------- HEIGHT: 180.3 cm WEIGHT: 83.9 kg BP: IVSd: 1.1 cm (0.6 - 1.1) LVIDd: 3.9 cm (3.9 - 5.3) LVPWd: 1.1 cm (0.6 - 1.1) EDV(Teich): 65 ml IVSs: 1.6 cm LVIDs: 3.3 cm LVPWs: 1.5 cm %IVS Thck: 43 % ESV(Teich): 43 ml EF(Teich): 35 % %FS: 16 % SV(Teich): 23 ml LA Diam: 3.4 cm (2.7 - 3.8) RVIDd: 2.6 cm (< 3.3) LALs A4C: 5.2 cm LAAs A4C: 20.2 cm LAESV A-L A4C: 66 ml LAESV MOD A4C: 57 ml LALs A2C: 6.2 cm LAAs A2C: 16.9 cm LAESV A-L A2C: 39 ml LAESV MOD A2C: 37 ml LAESV(A-L): 55 ml LAESV Index (A-L): 27.15 ml/m Ao Diam: 3.4 cm (2.0 - 3.7) AV Cusp: 1.9 cm (1.5 - 2.6) EPSS: 0.5 cm MV E Agustin: 0.82 m/s MV DecT: 258 ms MV Dec Alfalfa: 3.2 m/s MV A Agustin: 0.72 m/s MV E/A Ratio: 1.13 MV PHT: 75 ms AV Vmax: 1.67 m/s AV maxP.21 mmHg AV Vmax: 1.76 m/s AV Vmean: 1.10 m/s AV maxP.37 mmHg AV meanP.97 mmHg AV Env.Ti: 346 ms AV VTI: 38.1 cm AR Vmax: 2.14 m/s AR maxP.28 mmHg AR PHT: 1161 ms AR Dec Time: 4003 ms AR Dec Alfalfa: 0.5 m/s TR Vmax: 3.36 m/s TR maxP.27 mmHg RAP: 5.00 mmHg RVSP: 50.27 mmHg MV EF SLOPE: 41.26 mm/s (70 - 150) MV EXCURSION: 14.88 mm (> 18.000) FINDINGS -------- Paced rhythm. This was a technically adequate study. The left ventricular size is normal. There is borderline concentric left ventricular hypertrophy. Overall left ventricular systolic function is normal with, an EF between 60 - 65 %. The right ventricle is normal in size and function. Normal LA size by volume 22+/-6 ml/m2. The right atrium is normal in size. There is mild aortic valve sclerosis. Trace to mild aortic regurgitation. Mild mitral annular calcification present. Mild mitral regurgitation is present. Mild tricuspid regurgitation present. There is moderate pulmonary hypertension. The right ventric ular systolic pressure, as measured by Doppler, is 50.27mmHg. The pulmonic valve was not well visualized. The aortic root size is normal. IVC Not well visulized. There is no pericardial effusion. CONCLUSIONS -------- 1. The left ventricular size is normal. 2. There is borderline concentric left ventricular hypertrophy. 3. Overall left ventricular systolic function is normal with, an EF between 60 - 65 %. 4. There is mild aortic valve sclerosis. 5. Trace to mild aortic regurgitation. 6. Mild mitral annular calcification present. 7. Mild mitral regurgitation is present. 8. Mild tricuspid regurgitation present. 9. There is moderate pulmonary hypertension. 10. The right ventricular systolic pressure, as measured by Doppler, is 50.27mmHg. 11. There is no pericardial effusion. PASTRY ARTIST: Ashley Uribe RDCS
--- NOTE | 2021-01-12 16:34 | P.PN ---
Progress Note - Text Progress Note Date: 01/12/21 - Chief Complaint Fall with fracture This is a 85-year-old patient, who per the EMS was called out and found the patient in a supine position up on the floor in his apartment. Patient was discovered in the supine position on the floor in his apartment by the staff that they started calling out for help. No outward signs of trauma. He denied any neck pain and head pain and because of memory issues patient could not recall what happened. Patient's son is at the bedside in the hospital. Patient's chronic stable medical conditions include dementia, GERD, Parkinson's disorder, osteoarthritis, prostate cancer. Patient at the baseline does use a walker. Able to recognize family. Needs prompting for a feeding. Cor status is DO NOT RESUSCITATE. Patient's Sabra is the POA. Son is also listed on the same. Patient somewhat tired. Unable to give much of a history currently. January 12: Yesterday patient underwent ID screw placement. Closed reduction. Laying in bed. Tired. On seeing occasional questions. Barely eating. Discussed with manager case about discharge planning. Looks like patient returning to [facility] with hospice tomorrow Review of systems: Patient not communicating much Active Medications Acetaminophen (Acetaminophen Tab 325 Mg Tab) 650 mg PO Q6HR PRN PRN Reason: Fever and/ or Pain Hydrocodone Bitart/Acetaminophen (Hydrocodone/Apap 5-325mg 1 Each Tab) 1 each PO Q4HR PRN PRN Reason: Mild Pain Last Admin: 01/12/21 08:47 Dose: 1 each Documented by: Benzocaine/Menthol (Benzocaine/Menthol Lozeng 1 Each Lozenge) 1 each MUCOUS MEM Q4HR PRN PRN Reason: Sore Throat Bisacodyl (Bisacodyl 10 Mg Supp) 10 mg RECTAL Q72H PRN PRN Reason: Constipation Carbidopa/Levodopa (Carbidopa-Levodopa 25-100 Mg 1 Each Tab) 1 each PO BID@0800,1400 [facility] Last Admin: 01/12/21 15:41 Dose: 1 each Documented by: Enoxaparin Sodium (Enoxaparin 40 Mg/0.4 Ml Syringe) 40 mg SQ DAILY [facility] Last Admin: 01/12/21 08:49 Dose: 40 mg Documented by: Haloperidol Lactate (Haloperidol Oral Soln 10 Mg/5 Ml Cup) 0.5 mg PO TID PRN PRN Reason: Agitation Hydromorphone HCl (Hydromorphone 1 Mg/Ml 1 Ml Syringe) 1 mg IVP Q3HR PRN PRN Reason: Severe Pain Last Admin: 01/11/21 14:54 Dose: 1 mg Documented by: Hydromorphone HCl (Hydromorphone 0.5 Mg/0.5 Ml Syringe) 0.5 mg IVP Q4HR PRN PRN Reason: Moderate Pain Last Admin: 01/12/21 05:35 Dose: 0.5 mg Documented by: Sodium Chloride (Saline 0.9%) 1,000 mls @ 75 mls/hr IV .[id number] [facility] Last Admin: 01/12/21 03:55 Dose: Not Given Documented by: Levetiracetam 250 mg/ Sodium (Chloride) 102.5 mls @ 400 mls/hr IVPB Q12HR [facility] Last Admin: 01/12/21 08:47 Dose: 400 mls/hr Documented by: Acetaminophen 1,000 mg/ IV (Solution) 100 mls @ 400 mls/hr IVPB Q6HR PRN PRN Reason: Fever and/ or Pain Stop: 01/12/21 18:14 Last Admin: 01/11/21 22:39 Dose: 400 mls/hr Documented by: Lactic Acid (Ammonium Lactate 12% Cream 140 Gm Tube) 1 applic TOPICAL BID PRN; Protocol PRN Reason: DRY FEET Lorazepam (Lorazepam 2 Mg/Ml Inj) 0.5 mg IV Q6HR PRN PRN Reason: Anxiety Last Admin: 01/12/21 12:55 Dose: 0.5 mg Documented by: Multivitamins (Multivitamins, Thera 1 Each Tab) 1 each PO DAILY@0800 [facility] Last Admin: 01/12/21 08:47 Dose: 1 each Documented by: Naloxone HCl (Naloxone 0.4 Mg/Ml 1 Ml Vial) 0.2 mg IV Q2M PRN PRN Reason: Opioid Reversal Ondansetron HCl (Ondansetron 4 Mg/2 Ml Vial) 4 mg IVP Q24HR PRN PRN Reason: Nausea And Vomiting Pantoprazole Sodium (Pantoprazole 40 Mg Tablet) 40 mg PO DAILY@0800 [facility] Last Admin: 01/12/21 08:47 Dose: 40 mg Documented by: Prochlorperazine Maleate (Prochlorperazine Suppository 25 Mg Supp) 25 mg RECTAL Q12H PRN PRN Reason: Nausea And Vomiting Psyllium Hydrophilic Mucilloid (Psyllium Husk 100% 6 Gm Packet) 6 gm PO DAILY@0800 [facility] Last Admin: 01/12/21 08:49 Dose: 6 gm Documented by: Quetiapine Fumarate (Quetiapine 50 Mg Tab) 50 mg PO HS@2000 [facility] Last Admin: 01/11/21 20:03 Dose: 50 mg Documented by: Senna/Docusate Sodium (Sennosides-Docusate Sodium 1 Each Tab) 1 each PO DAILY [facility] Last Admin: 01/12/21 08:47 Dose: 1 each Documented by: Past medical history to include: Dementia, GERD, osteoarthritis, Parkinson disorder, gait dysfunction uses a walker, constipation, history of diverticulitis with bowel resection, prostate cancer, glaucoma anxiety depression Social history: Patient smoked for 40 years about a pack a day stopped in 1985. Alcohol rarely. . Retired Family history: Breast cancer Physical examination: VITAL SIGNS: 97.9, 60, 18, 1 28 x 65, 95% on 3 L GENERAL: Laying in bed, tired EYES: Pupils equal. Conjunctiva normal. HEENT: External appearance of nose and ears normal, oral cavity grossly normal. NECK: JVD not raised; masses not palpable. HEART: First and second heart sounds are normal; no edema. LUNGS: Respiratory rate normal; decreased breath sounds. ABDOMEN: Soft, nontender, liver spleen not palpable, no masses palpable. Gonzales catheter PSYCH: Unable to assess. Barely answering questions. NEUROLOGICAL: Cranial nerves grossly intact; no facial asymmetry, power and sensation grossly intact. MUSCULAR skeletal: Evidence of OA in multiple joints. Limited range of motion of the left hip. Dressing over left hip. INVESTIGATIONS, reviewed in the clinical context: January 12: WBC 11.6 hemoglobin 11.9 platelets 179 WBC 8.3 hemoglobin 13.4 platelets 211 potassium 3.9 BUN 23 creatinine 1.01 UA trace protein EKG tracing personally reviewed by me-paced rhythm , rate 62, Chest x-ray film personally reviewed by me-cardiomegaly. Pacemaker CT brain: Age-related atrophy and chronic small vessel ischemic changes. X-ray hip complete left: Acute comminuted ID fractured left femur. No dislocation. Assessment and plan: -Acute left femur fracture secondary to fall. No dislocation. IT screws placement. Closed reduction -Idiopathic Parkinson's disease Sinemet 2500 one tablet by mouth twice a day -Hyperlipidemia Lipitor 80 mg daily at bedtime -GERD Nexium 40 mg daily -Chronic idiopathic insomnia Seroquel 75 mg daily at bedtime -Depression Effexor XL 75 mg a day -Chronic constipation On laxatives -Chronic gait dysfunction, to baseline uses a walker Fall precautions -Advanced cognitive impairment, known vascular dementia Namenda 10 mg twice a day Exelon 0.46 mg patch -DO NOT RESUSCITATE It seems plan is with the patient to go back to assisted living with hospice. Prognosis guarded. Continue current medications.
[2021-01-12] MEDS: QUEtiapine 50 MG TAB PO SCH (22:34)
[2021-01-13] MEDS: SODIUM CHLORIDE 0.9% 1,000 ML IV SCH ×2 (05:45→21:21)
[2021-01-13] MEDS: PANTOPRAZOLE 40 MG TABLET PO SCH (08:30)
[2021-01-13] MEDS: ENOXAPARIN 40 MG/0.4 ML SYRINGE SQ SCH (08:30)
[2021-01-13] MEDS: CARBIDOPA-LEVODOPA 25-100 MG 1 EACH TAB PO SCH ×2 (08:30→15:21)
[2021-01-13] MEDS: PSYLLIUM HUSK 100% 6 GM PACKET PO SCH (08:33)
[2021-01-13] MEDS: MULTIVITAMINS, THERA 1 EACH TAB PO SCH (08:33)
[2021-01-13] MEDS: SENNOSIDES-DOCUSATE SODIUM 1 EACH TAB PO SCH (08:34)
[2021-01-13] MEDS: levETIRAcetam IV 250 MG in SODIUM CHLORIDE 0.9% 100 ML IVPB SCH ×2 (08:55→23:09)
--- NOTE | 2021-01-13 09:45 | P.DS ---
Providers Date of admission: 01/10/21 08:11 Attending physician: Angie Arauz Consults: 01/10/21 08:09 Consult Physician Urgent Consulting Provider: Matias Hunt Consult Reason/Comments: femur fracture clearance Do you want consulting provider notified?: Yes 01/10/21 08:13 Consult Physician Urgent Consulting Provider: Jono Su Consult Reason/Comments: femur fracture/pacer Do you want consulting provider notified?: Yes Primary care physician: Physician Nonstaff Hospital Course: The patient presented on the day of admission as per their operative note.He is found on the floor after an unwitnessed fall at his residence where he is in assisted living. He has severe dementia and Parkinson's and was unable to give any history. He has been accompanied large measure by his sons. He had bowers stained a left intertrochanteric femur fracture and underwent surgical fixation with intramedullary hip screw on , January 11. He is making some progress in terms of his pain. He has significant dementia but has some small times of reasonable response for simple questioning. He did not appear to have any other injuries. Physical Exam The incision site is clean dry and intact. There is no erythema no drainage. There is no purulence no evidence of infection.His thigh is soft. There is no drainage at the dressing in his thigh. Abdomen soft and nontender. Chest has good excursion with deep inspiration and expiration. The patient has active and passive range of motion intact at the upper and lower extremities. There is no acute change in neurologic status.He does have dorsal flexion plantarflexion intact but it is difficult to get him to cooperate with exam Hospital Course Postoperative day #2 status post intramedullary hip screw for his Intertrochanteric acute femur fracture. The patient has been making Adequate progress postoperatively. They have completed the prophylactic antibiotics without any signs or symptoms of infection. The patient has been able to advance their diet, and is tolerating diet adequately. He is having significant difficulty feeding himself and we will see if someone to help him with his meals. The pain was initially controlled with IV medications and is now controlled appropriately with oral medications. The patient has been able to increase their mobilization, To some degree but it is going be very difficult to have to mobilize on his own he'll certainly need significant help with his mobilization as he heals and thereafter.. The patient has progressed appropriatelyIn general. I think they are in stable condition for discharge todayTo the facility that his family his chosen which is [facility]. They will be sent with appropriate prescriptions. I answered their questions to the best of my ability in a language that they can understand and they are agreeable with the plan. They will follow up as directedIn approximately 2 weeks or sooner if they have any problems. He should try to remain nonweightbearing on the left lower extremity and continue to try to mobilize with therapy Patient Condition at Discharge: Stable Plan - Discharge Summary Discharge Rx Participant: No New Discharge Prescriptions: New HYDROcodone/APAP 5-325MG [[place] 5] 1 each PO Q6HR PRN #28 tab PRN Reason: Pain No Action Memantine [Namenda] 10 mg PO BID@0800,1999 Venlafaxine HCl ER [Effexor XR] 75 mg PO DAILY@0800 Esomeprazole Magnesium [NexIUM] 40 mg PO DAILY@0800 Carbidopa-Levodopa 25-100 mg [Sinemet 25-100 mg] 1 tab PO BID@08,1999 QUEtiapine FUMARATE [SEROquel] 25 mg PO HS@1999 Acetaminophen Tab [Tylenol] 325 mg PO DAILY@0800 Clopidogrel Bisulfate [Plavix] 75 mg PO DAILY@0800 levETIRAcetam [Keppra] 250 mg PO BID@08,1999 QUEtiapine [SEROquel] 50 mg PO HS@1999 Rivastigmine 4.6MG/24Hr Patch [Exelon 4.6MG/24Hr Patch] 1 patch TRANSDERM DAILY@0800 Ammonium Lactate Cream [Lac-Hydrin 12% Cream] 1 applic TOPICAL BID PRN PRN Reason: DRY FEET Ativan 2mg/Ml 0.5 - 1 mg PO Q4H PRN PRN Reason: Agitation Atorvastatin Calcium [Lipitor] 80 mg PO HS@2000 Multivitamins, Thera [Multivitamin (formulary)] 1 tab PO DAILY@0800 Psyllium Husk (with Sugar) [Metamucil Powder] 1 dose PO DAILY@0800 Vit C/E/Zn/Coppr/Lutein/Zeaxan [Preservision Areds 2 Softgel] 1 cap PO BID@0800,1999 Prochlorperazine Suppository [Compazine] 25 mg RECTAL Q12H PRN PRN Reason: Nausea And Vomiting Hyoscyamine Sulfate [Levsin] 0.125 - 0.25 mg SUBLINGUAL Q4H PRN PRN Reason: PARKINSON'S Haldol 2mg/Ml 0.5 - 1 mg SUBLINGUAL Q4H PRN PRN Reason: Agitation bisacodyL 10 mg RECTAL Q72H PRN PRN Reason: Constipation Acetaminophen Suppository [Tylenol Suppository] 650 mg RECTAL Q4H PRN PRN Reason: Pain Sennosides/Docusate Sodium [Senna Plus 8.6-50 mg Softgel] 1 - 2 cap PO DAILY PRN PRN Reason: Constipation Discharge Medication List Memantine [Namenda] 10 mg PO BID@08,199912/25/15 [History] Venlafaxine HCl ER [Effexor XR] 75 mg PO DAILY@0812/25/15 [History] Esomeprazole Magnesium [NexIUM] 40 mg PO DAILY@0801/23/16 [History] Carbidopa-Levodopa 25-100 mg [Sinemet 25-100 mg] 1 tab PO BID@799,199910/06/17 [History] QUEtiapine FUMARATE [SEROquel] 25 mg PO HS@199911/04/19 [History] Acetaminophen Suppository [Tylenol Suppository] 650 mg RECTAL Q4H PRN 01/10/21 [History] Acetaminophen Tab [Tylenol] 325 mg PO DAILY@0801/10/21 [History] Ammonium Lactate Cream [Lac-Hydrin 12% Cream] 1 applic TOPICAL BID PRN 01/10/21 [History] Ativan 2mg/Ml 0.5 - 1 mg PO Q4H PRN 01/10/21 [History] Atorvastatin Calcium [Lipitor] 80 mg PO HS@199901/10/21 [History] Clopidogrel Bisulfate [Plavix] 75 mg PO DAILY@0801/10/21 [History] Haldol 2mg/Ml 0.5 - 1 mg SUBLINGUAL Q4H PRN 01/10/21 [History] Hyoscyamine Sulfate [Levsin] 0.125 - 0.25 mg SUBLINGUAL Q4H PRN 01/10/21 [History] Multivitamins, Thera [Multivitamin (formulary)] 1 tab PO DAILY@0801/10/21 [History] Prochlorperazine Suppository [Compazine] 25 mg RECTAL Q12H PRN 01/10/21 [History] Psyllium Husk (with Sugar) [Metamucil Powder] 1 dose PO DAILY@0800 01/10/21 [History] QUEtiapine [SEROquel] 50 mg PO HS@199901/10/21 [History] Rivastigmine 4.6MG/24Hr Patch [Exelon 4.6MG/24Hr Patch] 1 patch TRANSDERM DAILY@0800 01/10/21 [History] Sennosides/Docusate Sodium [Senna Plus 8.6-50 mg Softgel] 1 - 2 cap PO DAILY PRN 01/10/21 [History] Vit C/E/Zn/Coppr/Lutein/Zeaxan [Preservision Areds 2 Softgel] 1 cap PO BID@0800,199901/10/21 [History] bisacodyL 10 mg RECTAL Q72H PRN 01/10/21 [History] levETIRAcetam [Keppra] 250 mg PO BID@0800,199901/10/21 [History] HYDROcodone/APAP 5-325MG [[place] 5] 1 each PO Q6HR PRN #28 tab 01/12/21 [Rx] Follow up Appointment(s)/Referral(s): Hospice,[facility] [REFERRING] - ([facility] will meet patient at [facility] at discharge. ) You Reyna, PAC [PHYSICIAN ADMITTING COORDINATOR] - 2 Weeks (Patient may follow-up with You Reyna PA-C or Dr. Wilder Arauz at [facility] in 2-3 weeks following discharge. ) Nonstaff,Physician [Primary Care Provider] - 1-2 days Activity/Diet/Wound Care/Special Instructions: Discharging RN - Please call [facility] at [phone] once discharged to notify staff to expect patient. Call [facility] to arrange ambulance transport - [phone] and send form with patient. Form is on the chart. 1. Patient to remain nonweightbearing on the left lower extremity 2. Keep dressing over the left hip clean, dry, and intact 3. Patient may shower without a dressing over the incision sites in 72 hours if there is no active drainage 4. May plan ice for comfort support as needed for the left lower extremity 5. Do not soak in a tub Discharge Disposition: OTHER INSTITUTION NOT DEFINED
[2021-01-13] MEDS: ACETAMINOPHEN TAB 325 MG TAB PO PRN (12:30)
--- NOTE | 2021-01-13 16:08 | P.PN ---
Progress Note - Text Progress Note Date: 01/13/21 - Chief Complaint Fall with fracture This is a 85-year-old patient, who per the EMS was called out and found the patient in a supine position up on the floor in his apartment. Patient was discovered in the supine position on the floor in his apartment by the staff that they started calling out for help. No outward signs of trauma. He denied any neck pain and head pain and because of memory issues patient could not recall what happened. Patient's son is at the bedside in the hospital. Patient's chronic stable medical conditions include dementia, GERD, Parkinson's disorder, osteoarthritis, prostate cancer. Patient at the baseline does use a walker. Able to recognize family. Needs prompting for a feeding. Cor status is DO NOT RESUSCITATE. Patient's Sabra is the POA. Son is also listed on the same. Patient somewhat tired. Unable to give much of a history currently. January 12: Yesterday patient underwent ID screw placement. Closed reduction. Laying in bed. Tired. On seeing occasional questions. Barely eating. Discussed with case operator about discharge planning. Looks like patient returning to [facility] with hospice tomorrow January 13: Laying in bed. Pending to go down to the assisted living with hospice. No oral intake. Getting maintain his IV fluids. at the bedside. Care was discussed length with her. Questions answered. Hospice approach was discussed. Review of systems: Patient not communicating much Active Medications Acetaminophen (Acetaminophen Tab 325 Mg Tab) 650 mg PO Q6HR PRN PRN Reason: Fever and/ or Pain Last Admin: 01/13/21 12:30 Dose: 650 mg Documented by: Hydrocodone Bitart/Acetaminophen (Hydrocodone/Apap 5-325mg 1 Each Tab) 1 each PO Q4HR PRN PRN Reason: Mild Pain Last Admin: 01/12/21 08:47 Dose: 1 each Documented by: Benzocaine/Menthol (Benzocaine/Menthol Lozeng 1 Each Lozenge) 1 each MUCOUS MEM Q4HR PRN PRN Reason: Sore Throat Bisacodyl (Bisacodyl 10 Mg Supp) 10 mg RECTAL Q72H PRN PRN Reason: Constipation Carbidopa/Levodopa (Carbidopa-Levodopa 25-100 Mg 1 Each Tab) 1 each PO BID@0800,1400 [facility] Last Admin: 01/13/21 15:21 Dose: 1 each Documented by: Enoxaparin Sodium (Enoxaparin 40 Mg/0.4 Ml Syringe) 40 mg SQ DAILY [facility] Last Admin: 01/13/21 08:30 Dose: 40 mg Documented by: Haloperidol Lactate (Haloperidol Oral Soln 10 Mg/5 Ml Cup) 0.5 mg PO TID PRN PRN Reason: Agitation Hydromorphone HCl (Hydromorphone 1 Mg/Ml 1 Ml Syringe) 1 mg IVP Q3HR PRN PRN Reason: Severe Pain Last Admin: 01/11/21 14:54 Dose: 1 mg Documented by: Hydromorphone HCl (Hydromorphone 0.5 Mg/0.5 Ml Syringe) 0.5 mg IVP Q4HR PRN PRN Reason: Moderate Pain Last Admin: 01/12/21 05:35 Dose: 0.5 mg Documented by: Sodium Chloride (Saline 0.9%) 1,000 mls @ 75 mls/hr IV .[id number] [facility] Last Admin: 01/13/21 05:45 Dose: Not Given Documented by: Levetiracetam 250 mg/ Sodium (Chloride) 102.5 mls @ 400 mls/hr IVPB Q12HR [facility] Last Admin: 01/13/21 08:55 Dose: 400 mls/hr Documented by: Lactic Acid (Ammonium Lactate 12% Cream 140 Gm Tube) 1 applic TOPICAL BID PRN; Protocol PRN Reason: DRY FEET Lorazepam (Lorazepam 2 Mg/Ml Inj) 0.5 mg IV Q6HR PRN PRN Reason: Anxiety Last Admin: 01/12/21 12:55 Dose: 0.5 mg Documented by: Multivitamins (Multivitamins, Thera 1 Each Tab) 1 each PO DAILY@0800 [facility] Last Admin: 01/13/21 08:33 Dose: Not Given Documented by: Naloxone HCl (Naloxone 0.4 Mg/Ml 1 Ml Vial) 0.2 mg IV Q2M PRN PRN Reason: Opioid Reversal Ondansetron HCl (Ondansetron 4 Mg/2 Ml Vial) 4 mg IVP Q24HR PRN PRN Reason: Nausea And Vomiting Pantoprazole Sodium (Pantoprazole 40 Mg Tablet) 40 mg PO DAILY@0800 [facility] Last Admin: 01/13/21 08:30 Dose: 40 mg Documented by: Prochlorperazine Maleate (Prochlorperazine Suppository 25 Mg Supp) 25 mg RECTAL Q12H PRN PRN Reason: Nausea And Vomiting Psyllium Hydrophilic Mucilloid (Psyllium Husk 100% 6 Gm Packet) 6 gm PO DAILY@0800 [facility] Last Admin: 01/13/21 08:33 Dose: Not Given Documented by: Quetiapine Fumarate (Quetiapine 50 Mg Tab) 50 mg PO HS@2000 [facility] Last Admin: 01/12/21 22:34 Dose: 50 mg Documented by: Senna/Docusate Sodium (Sennosides-Docusate Sodium 1 Each Tab) 1 each PO DAILY [facility] Last Admin: 01/13/21 08:34 Dose: Not Given Documented by: Past medical history to include: Dementia, GERD, osteoarthritis, Parkinson disorder, gait dysfunction uses a walker, constipation, history of diverticulitis with bowel resection, prostate cancer, glaucoma anxiety depression Social history: Patient smoked for 40 years about a pack a day stopped in 1985. Alcohol rarely. . Retired Family history: Breast cancer Physical examination: VITAL SIGNS: He 7.3, 61, 17, 1 37 x 70, 98% on 4 L GENERAL: Laying in bed, tired, lethargic EYES: Pupils equal. Conjunctiva normal. HEENT: External appearance of nose and ears normal, oral cavity grossly normal. NECK: JVD not raised; masses not palpable. HEART: First and second heart sounds are normal; no edema. LUNGS: Respiratory rate normal; decreased breath sounds. ABDOMEN: Soft, nontender, liver spleen not palpable, no masses palpable. Gonzales catheter PSYCH: Unable to assess. Barely answering questions. MUSCULAR skeletal: Evidence of OA in multiple joints. Limited range of motion of the left hip. Dressing over left hip. INVESTIGATIONS, reviewed in the clinical context: January 12: WBC 11.6 hemoglobin 11.9 platelets 179 WBC 8.3 hemoglobin 13.4 platelets 211 potassium 3.9 BUN 23 creatinine 1.01 UA trace protein EKG tracing personally reviewed by me-paced rhythm , rate 62, Chest x-ray film personally reviewed by me-cardiomegaly. Pacemaker CT brain: Age-related atrophy and chronic small vessel ischemic changes. X-ray hip complete left: Acute comminuted ID fractured left femur. No dislocation. Assessment and plan: -Acute left femur fracture secondary to fall. No dislocation. IT screws placement. Closed reduction -Idiopathic Parkinson's disease Sinemet 2500 one tablet by mouth twice a day -Hyperlipidemia Lipitor 80 mg daily at bedtime -GERD Nexium 40 mg daily -Chronic idiopathic insomnia Seroquel 75 mg daily at bedtime -Depression Effexor XL 75 mg a day -Chronic constipation On laxatives -Chronic gait dysfunction, to baseline uses a walker Fall precautions -Advanced cognitive impairment, known vascular dementia -DO NOT RESUSCITATE Not doing too well. Awaiting to go down to assisted living with hospice. Discussed the care of the bed to the at length. Also discussed with the nurse. Total time spent today about 40 minutes with over 25 minutes of discussion.
[2021-01-13 22:54] LABS: Basophils # (A) 0.04 X 10*3/uL (0.00-0.10); Basophils % (A) 0.6 %; Eosinophils # (A) 0.23 X 10*3/uL (0.04-0.35); Eosinophils % (A) 3.2 %; HCT 31.7 % (39.6-50.0); HGB 10.2 g/dL (13.0-17.0); Lymphocytes # (A) 1.02 X 10*3/uL (0.90-5.00); Lymphocytes % (A) 14.1 %; MCH 32.3 pg (27.0-32.0); MCHC 32.2 g/dL (32.0-37.0); MCV 100.3 fL (80.0-97.0); Mean Platelet Volume 11.4 fL (9.5-12.2); Monocytes # (A) 0.99 X 10*3/uL (0.20-1.00); Monocytes % (A) 13.7 %; Neutrophils # (A) 4.93 X 10*3/uL (1.80-7.70); Platelet Count 151 X 10*3/uL (140-440); RBC 3.16 X 10*6/uL (4.40-5.60); WBC 7.24 X 10*3/uL (4.50-10.00)
[2021-01-13] MEDS: QUEtiapine 50 MG TAB PO SCH (23:09)
[2021-01-14] MEDS: ENOXAPARIN 40 MG/0.4 ML SYRINGE SQ SCH (07:18)
[2021-01-14] MEDS: CARBIDOPA-LEVODOPA 25-100 MG 1 EACH TAB PO SCH ×3 (07:18→14:28)
[2021-01-14] MEDS: SENNOSIDES-DOCUSATE SODIUM 1 EACH TAB PO SCH (07:20)
[2021-01-14] MEDS: MULTIVITAMINS, THERA 1 EACH TAB PO SCH (07:20)
[2021-01-14] MEDS: PSYLLIUM HUSK 100% 6 GM PACKET PO SCH (07:21)
[2021-01-14] MEDS: levETIRAcetam IV 250 MG in SODIUM CHLORIDE 0.9% 100 ML IVPB SCH ×2 (07:30→21:29)
--- NOTE | 2021-01-14 09:42 | P.PN ---
Subjective Progress Note Date: 01/14/21 Principal diagnosis: left femur fracture. status post IT nail insertion left hip. Patient is a pleasant 85-year-old male with a history of dementia who is seen at bedside for follow up evaluation of his left hip. He is status post left hip intramedullary nail fixation for left intratrochanteric hip fracture performed on 01/11/2021. He is currently resting comfortably in bed. Patient is arousable but continues to have difficulty with answering questions. He does not appear to experience any pain with palpation around his surgical site at the left hip. He is able to wiggle toes and perform dorsiflexion and plantar flexion on the left. Patient continues to be seen and examined by Dr. Hunt in medicine. Patient has been discussed in detail case management this morning who states they're planning to follow-up with the patient and family this morning to discuss discharge planning including the possibility of discharge back to [facility] with home therapy versus rehab versus hospice care. Objective - Vital Signs Vital signs: Vital Signs Temp 98.5 F 01/14/21 08:00 Pulse 75 01/14/21 08:00 Resp 14 01/14/21 08:00 BP 155/71 01/14/21 08:00 Pulse Ox 97 01/14/21 08:00 Intake & Output 01/13/21 01/14/21 01/14/21 18:59 06:59 18:59 Intake Total 480 Output Total 1000 500 Balance -520 -500 Intake: Oral 480 Output: Urine 1000 500 Other: Voiding Method Indwelling Catheter # Voids 0 # Bowel Movements 0 0 - Exam the patient is resting comfortably. He does not cooperate much with exam today. Dressing is clean, dry and intact. No erythema or ecchymosis about the leg. Neurovascular status to the lower extremity is grossly intact. - Labs CBC & Chem 7: 01/13/21 14:14 01/10/21 06:13 Labs: Abnormal Lab Results - Last 24 Hours (Table) 01/13/21 Range/Units 14:14 RBC 3.16 L (4.40-5.60) X 10*6/uL Hgb 10.2 L (13.0-17.0) g/dL Hct 31.7 L (39.6-50.0) % MCV 100.3 H (80.0-97.0) fL MCH 32.3 H (27.0-32.0) pg Assessment and Plan (1) Fracture, intertrochanteric, left femur Current Visit: Yes Status: Acute Code(s): S72.142A - DISPLACED INTERTROCHAN TERIC FRACTURE OF LEFT FEMUR, INIT SNOMED Code(s): 336780698 Plan: the clinical findings are discussed with the patient's nursing staff. Continue current care. Plan discharged to subacute care when cleared medically.
[2021-01-14] MEDS: ACETAMINOPHEN TAB 325 MG TAB PO PRN (14:28)
[2021-01-14] MEDS: SODIUM CHLORIDE 0.9% 1,000 ML IV SCH ×2 (14:36→21:30)
[2021-01-14] MEDS: QUEtiapine 50 MG TAB PO SCH (21:29)
--- NOTE | 2021-01-14 22:08 | P.PN ---
Progress Note - Text Progress Note Date: 01/14/21 - Chief Complaint Fall with fracture This is a 85-year-old patient, who per the EMS was called out and found the patient in a supine position up on the floor in his apartment. Patient was discovered in the supine position on the floor in his apartment by the staff that they started calling out for help. No outward signs of trauma. He denied any neck pain and head pain and because of memory issues patient could not recall what happened. Patient's son is at the bedside in the hospital. Patient's chronic stable medical conditions include dementia, GERD, Parkinson's disorder, osteoarthritis, prostate cancer. Patient at the baseline does use a walker. Able to recognize family. Needs prompting for a feeding. Cor status is DO NOT RESUSCITATE. Patient's Sabra is the POA. Son is also listed on the same. Patient somewhat tired. Unable to give much of a history currently. January 12: Yesterday patient underwent ID screw placement. Closed reduction. Laying in bed. Tired. On seeing occasional questions. Barely eating. Discussed with case management manager about discharge planning. Looks like patient returning to [facility] with hospice tomorrow January 13: Laying in bed. Pending to go down to the assisted living with hospice. No oral intake. Getting maintain his IV fluids. at the bedside. Care was discussed length with her. Questions answered. Hospice approach was discussed. January 14: Laying in bed. More awake today. Also simple questions. Comfortable. Minimal oral intake. Review of systems: Patient not communicating much Active Medications Acetaminophen (Acetaminophen Tab 325 Mg Tab) 650 mg PO Q6HR PRN PRN Reason: Fever and/ or Pain Last Admin: 01/14/21 14:28 Dose: 650 mg Documented by: Hydrocodone Bitart/Acetaminophen (Hydrocodone/Apap 5-325mg 1 Each Tab) 1 each PO Q4HR PRN PRN Reason: Mild Pain Last Admin: 01/12/21 08:47 Dose: 1 each Documented by: Benzocaine/Menthol (Benzocaine/Menthol Lozeng 1 Each Lozenge) 1 each MUCOUS MEM Q4HR PRN PRN Reason: Sore Throat Bisacodyl (Bisacodyl 10 Mg Supp) 10 mg RECTAL Q72H PRN PRN Reason: Constipation Carbidopa/Levodopa (Carbidopa-Levodopa 25-100 Mg 1 Each Tab) 1 each PO BID@0800,1400 [facility] Last Admin: 01/14/21 14:28 Dose: 1 each Documented by: Enoxaparin Sodium (Enoxaparin 40 Mg/0.4 Ml Syringe) 40 mg SQ DAILY [facility] Last Admin: 01/14/21 07:18 Dose: 40 mg Documented by: Haloperidol Lactate (Haloperidol Oral Soln 10 Mg/5 Ml Cup) 0.5 mg PO TID PRN PRN Reason: Agitation Hydromorphone HCl (Hydromorphone 1 Mg/Ml 1 Ml Syringe) 1 mg IVP Q3HR PRN PRN Reason: Severe Pain Last Admin: 01/11/21 14:54 Dose: 1 mg Documented by: Hydromorphone HCl (Hydromorphone 0.5 Mg/0.5 Ml Syringe) 0.5 mg IVP Q4HR PRN PRN Reason: Moderate Pain Last Admin: 01/12/21 05:35 Dose: 0.5 mg Documented by: Sodium Chloride (Saline 0.9%) 1,000 mls @ 75 mls/hr IV .[id number] [facility] Last Admin: 01/14/21 21:30 Dose: 75 mls/hr Documented by: Levetiracetam 250 mg/ Sodium (Chloride) 102.5 mls @ 400 mls/hr IVPB Q12HR [facility] Last Admin: 01/14/21 21:29 Dose: 400 mls/hr Documented by: Lactic Acid (Ammonium Lactate 12% Cream 140 Gm Tube) 1 applic TOPICAL BID PRN; Protocol PRN Reason: DRY FEET Lorazepam (Lorazepam 2 Mg/Ml Inj) 0.5 mg IV Q6HR PRN PRN Reason: Anxiety Last Admin: 01/12/21 12:55 Dose: 0.5 mg Documented by: Multivitamins (Multivitamins, Thera 1 Each Tab) 1 each PO DAILY@0800 [facility] Last Admin: 01/14/21 07:20 Dose: Not Given Documented by: Naloxone HCl (Naloxone 0.4 Mg/Ml 1 Ml Vial) 0.2 mg IV Q2M PRN PRN Reason: Opioid Reversal Ondansetron HCl (Ondansetron 4 Mg/2 Ml Vial) 4 mg IVP Q24HR PRN PRN Reason: Nausea And Vomiting Pantoprazole Sodium (Pantoprazole 40 Mg Tablet) 40 mg PO DAILY@0800 [facility] Last Admin: 01/13/21 08:30 Dose: 40 mg Documented by: Prochlorperazine Maleate (Prochlorperazine Suppository 25 Mg Supp) 25 mg RECTAL Q12H PRN PRN Reason: Nausea And Vomiting Psyllium Hydrophilic Mucilloid (Psyllium Husk 100% 6 Gm Packet) 6 gm PO DAILY@0800 [facility] Last Admin: 01/14/21 07:21 Dose: Not Given Documented by: Quetiapine Fumarate (Quetiapine 50 Mg Tab) 50 mg PO HS@1999 [facility] Last Admin: 01/14/21 21:29 Dose: 50 mg Documented by: Senna/Docusate Sodium (Sennosides-Docusate Sodium 1 Each Tab) 1 each PO DAILY [facility] Last Admin: 01/14/21 07:20 Dose: Not Given Documented by: Past medical history to include: Dementia, GERD, osteoarthritis, Parkinson disorder, gait dysfunction uses a walker, constipation, history of diverticulitis with bowel resection, prostate cancer, glaucoma anxiety depression Social history: Patient smoked for 40 years about a pack a day stopped in 1985. Alcohol rarely. . Retired Family history: Breast cancer Physical examination: VITAL SIGNS: 98.5, 75, 14, 155-71, 97% on 4 L GENERAL: Laying in bed, tired, lethargic EYES: Pupils equal. Conjunctiva normal. HEENT: External appearance of nose and ears normal, oral cavity grossly normal. NECK: JVD not raised; masses not palpable. HEART: First and second heart sounds are normal; no edema. LUNGS: Respiratory rate normal; decreased breath sounds. ABDOMEN: Soft, nontender, liver spleen not palpable, no masses palpable. Gonzales catheter PSYCH: Unable to assess. Barely answering questions. MUSCULAR skeletal: Evidence of OA in multiple joints. Limited range of motion of the left hip. Dressing over left hip. INVESTIGATIONS, reviewed in the clinical context: January 12: WBC 11.6 hemoglobin 11.9 platelets 179 WBC 8.3 hemoglobin 13.4 platelets 211 potassium 3.9 BUN 23 creatinine 1.01 UA trace protein EKG tracing personally reviewed by me-paced rhythm , rate 62, Chest x-ray film personally reviewed by me-cardiomegaly. Pacemaker CT brain: Age-related atrophy and chronic small vessel ischemic changes. X-ray hip complete left: Acute comminuted ID fractured left femur. No dis location. Assessment and plan: -Acute left femur fracture secondary to fall. No dislocation. IT screws placement. Closed reduction -Idiopathic Parkinson's disease Sinemet 2500 one tablet by mouth twice a day -Hyperlipidemia Lipitor 80 mg daily at bedtime -GERD Nexium 40 mg daily -Chronic idiopathic insomnia Seroquel 75 mg daily at bedtime -Depression Effexor XL 75 mg a day -Chronic constipation On laxatives -Chronic gait dysfunction, to baseline uses a walker Fall precautions -Advanced cognitive impairment, known vascular dementia -DO NOT RESUSCITATE Continue current treatment plan. Pending transfer to assisted living and hospice.
[2021-01-15 07:36] VITALS: RESP 16
[2021-01-15] MEDS: SENNOSIDES-DOCUSATE SODIUM 1 EACH TAB PO SCH (10:39)
[2021-01-15] MEDS: CARBIDOPA-LEVODOPA 25-100 MG 1 EACH TAB PO SCH ×2 (10:39→14:12)
[2021-01-15] MEDS: levETIRAcetam IV 250 MG in SODIUM CHLORIDE 0.9% 100 ML IVPB SCH (10:40)
[2021-01-15] MEDS: ENOXAPARIN 40 MG/0.4 ML SYRINGE SQ SCH (10:40)
[2021-01-15] MEDS: PANTOPRAZOLE 40 MG TABLET PO SCH (10:40)
[2021-01-15] MEDS: PSYLLIUM HUSK 100% 6 GM PACKET PO SCH (10:40)
[2021-01-15] MEDS: MULTIVITAMINS, THERA 1 EACH TAB PO SCH (10:40)
[2021-01-15] MEDS: SODIUM CHLORIDE 0.9% 1,000 ML IV SCH (10:43)
--- NOTE | 2021-01-15 10:45 | P.DS ---
Providers Date of admission: 01/10/21 08:11 Expected date of discharge: 01/15/21 Attending physician: Angie Arauz Consults: 01/10/21 08:09 Consult Physician Urgent Consulting Provider: Matias Hunt Consult Reason/Comments: femur fracture clearance Do you want consulting provider notified?: Yes 01/10/21 08:13 Consult Physician Urgent Consulting Provider: Jono Su Consult Reason/Comments: femur fracture/pacer Do you want consulting provider notified?: Yes Primary care physician: Physician Nonstaff - Discharge Diagnosis(es) (1) Inability to ambulate due to left hip Current Visit: Yes Status: Acute (2) Status post fall Current Visit: Yes Status: Acute (3) Dementia Current Visit: Yes Status: Acute (4) Parkinsons disease Current Visit: Yes Status: Acute (5) History of prostate cancer Current Visit: Yes Status: Acute (6) Neurological disorder Current Visit: Yes Status: Acute (7) Current use of terminal system operator anticoagulation Current Visit: Yes Status: Acute (8) Fracture, intertrochanteric, left femur Current Visit: Yes Status: Acute Hospital Course: This is a pleasant 85-year-old male with dementia who presented with a left hip intertrochanteric hip fracture status post fall. He was admitted for further treatment evaluation. He underwent left hip intramedullary nail fixation for left intertrochanteric hip fracture. He has remained strict nonweightbearing on left lower extremity. His left hip pain has been well-controlled postoperatively. Patient is able to follow some commands and answer some questions does have difficulty. Patient is planning to be discharged today back to [facility] on hospice care. Patient will be cleared from an orthopedic standpoint pending clearance by medicine. Condition on day of discharge stable. Patient was cleared preoperatively for surgery by medicine and cardiology. Patient currently denies any nausea, vomiting, fever, or chills. Patient is eating and voiding freely without difficulty. Patient may shower dressing intact. Patient may remove dressing in 3 days and shower without a dressing at that time. Patient will remain strict nonweightbearing on the left lower extremity. He is encouraged using a walker or other aid to aid in ambulation as needed. MAPS has been reviewed today, 01/12/2021, with an Overall Overdose Risk Score of 340. A prescription has been written for [place] 5 mg/325 mg 1 tab every 6 hours as needed for pain, dispensed #28. Opioid start talking form is unable to be signed as the patient has a history of dementia and is unable to sign this form appropriately. Patient's other medical diagnoses include dementia, recently diagnosed Parkinson's disease, history of prostate cancer, neurological disorder, history of diverticulitis with resection and postoperative ileus, and history of lower GI bleed with acute blood loss anemia. Patient will be cleared for discharge from orthopedic standpoint pending clearance by medicine. Patient's anticoagulation has been managed by medicine during his admission. We'll plan to have medicine continue with anticoagulation per the recommendations and prescribed the appropriate medications at discharge. Physical Exam on day of discharge: Status post surgical day number 4 Patient is examined lying in bed Patient is stable answer some questions Vital signs stable Adequate excursion with deep inspiration and expiration No signs or symptoms of DVT; no calf pain Lower extremity cuffs in place bilaterally Dressing of the left hip are removed during physical examination; incision sites are dry with no purulent discharge or obvious sign of infection There is some bruising around the surgical sites of the left hip One small area of mild blood over the superior posterior aspect of the proximal incision site following removal of dressing Dressing will be applied over the superior posterior area of the proximal incision site. No pain with palpation over the surgical sites Dorsiflexion, plantarflexion, and extensor hallucis longus positive sustained on the left Procedures: Left hip intramedullary nail fixation for left intertrochanteric hip fracture Patient Condition at Discharge: Stable Plan - Discharge Summary Discharge Rx Participant: No New Discharge Prescriptions: New HYDROcodone/APAP 5-325MG [[place] 5] 1 each PO Q6HR PRN #28 tab PRN Reason: Pain No Action Memantine [Namenda] 10 mg PO BID@ Venlafaxine HCl ER [Effexor XR] 75 mg PO DAILY@0800 Esomeprazole Magnesium [NexIUM] 40 mg PO DAILY@0800 Carbidopa-Levodopa 25-100 mg [Sinemet 25-100 mg] 1 tab PO BID@ QUEtiapine FUMARATE [SEROquel] 25 mg PO HS@1999 Acetaminophen Tab [Tylenol] 325 mg PO DAILY@0800 Clopidogrel Bisulfate [Plavix] 75 mg PO DAILY@08 levETIRAcetam [Keppra] 250 mg PO BID@ QUEtiapine [SEROquel] 50 mg PO HS@1999 Rivastigmine 4.6MG/24Hr Patch [Exelon 4.6MG/24Hr Patch] 1 patch TRANSDERM DAILY@08 Ammonium Lactate Cream [Lac-Hydrin 12% Cream] 1 applic TOPICAL BID PRN PRN Reason: DRY FEET Ativan 2mg/Ml 0.5 - 1 mg PO Q4H PRN PRN Reason: Agitation Atorvastatin Calcium [Lipitor] 80 mg PO HS@1999 Multivitamins, Thera [Multivitamin (formulary)] 1 tab PO DAILY@08 Psyllium Husk (with Sugar) [Metamucil Powder] 1 dose PO DAILY@08 Vit C/E/Zn/Coppr/Lutein/Zeaxan [Preservision Areds 2 Softgel] 1 cap PO BID@799,1999 Prochlorperazine Suppository [Compazine] 25 mg RECTAL Q12H PRN PRN Reason: Nausea And Vomiting Hyoscyamine Sulfate [Levsin] 0.125 - 0.25 mg SUBLINGUAL Q4H PRN PRN Reason: PARKINSON'S Haldol 2mg/Ml 0.5 - 1 mg SUBLINGUAL Q4H PRN PRN Reason: Agitation bisacodyL 10 mg RECTAL Q72H PRN PRN Reason: Constipation Acetaminophen Suppository [Tylenol Suppository] 650 mg RECTAL Q4H PRN PRN Reason: Pain Sennosides/Docusate Sodium [Senna Plus 8.6-50 mg Softgel] 1 - 2 cap PO DAILY PRN PRN Reason: Constipation Discharge Medication List Memantine [Namenda] 10 mg PO BID@799,199912/25/15 [History] Venlafaxine HCl ER [Effexor XR] 75 mg PO DAILY@79912/25/15 [History] Esomeprazole Magnesium [NexIUM] 40 mg PO DAILY@0800 01/23/16 [History] Carbidopa-Levodopa 25-100 mg [Sinemet 25-100 mg] 1 tab PO BID@799,199910/06/17 [History] QUEtiapine FUMARATE [SEROquel] 25 mg PO HS@199911/04/19 [History] Acetaminophen Suppository [Tylenol Suppository] 650 mg RECTAL Q4H PRN 01/10/21 [History] Acetaminophen Tab [Tylenol] 325 mg PO DAILY@0800 01/10/21 [History] Ammonium Lactate Cream [Lac-Hydrin 12% Cream] 1 applic TOPICAL BID PRN 01/10/21 [History] Ativan 2mg/Ml 0.5 - 1 mg PO Q4H PRN 01/10/21 [History] Atorvastatin Calcium [Lipitor] 80 mg PO HS@199901/10/21 [History] Clopidogrel Bisulfate [Plavix] 75 mg PO DAILY@0800 01/10/21 [History] Haldol 2mg/Ml 0.5 - 1 mg SUBLINGUAL Q4H PRN 01/10/21 [History] Hyoscyamine Sulfate [Levsin] 0.125 - 0.25 mg SUBLINGUAL Q4H PRN 01/10/21 [History] Multivitamins, Thera [Multivitamin (formulary)] 1 tab PO DAILY@0800 01/10/21 [History] Prochlorperazine Suppository [Compazine] 25 mg RECTAL Q12H PRN 01/10/21 [History] Psyllium Husk (with Sugar) [Metamucil Powder] 1 dose PO DAILY@0800 01/10/21 [History] QUEtiapine [SEROquel] 50 mg PO HS@199901/10/21 [History] Rivastigmine 4.6MG/24Hr Patch [Exelon 4.6MG/24Hr Patch] 1 patch TRANSDERM DAILY@0800 01/10/21 [History] Sennosides/Docusate Sodium [Senna Plus 8.6-50 mg Softgel] 1 - 2 cap PO DAILY PRN 01/10/21 [History] Vit C/E/Zn/Coppr/Lutein/Zeaxan [Preservision Areds 2 Softgel] 1 cap PO BID@08,199901/10/21 [History] bisacodyL 10 mg RECTAL Q72H PRN 01/10/21 [History] levETIRAcetam [Keppra] 250 mg PO BID@0800,199901/10/21 [History] HYDROcodone/APAP 5-325MG [[place] 5] 1 each PO Q6HR PRN #28 tab 01/12/21 [Rx] Follow up Appointment(s)/Referral(s): [facility] [REFERRING] - ([facility] will meet patient at [facility] at discharge. ) You Reyna, PAC [PHYSICIAN SHOE FITTER] - 2 Weeks (Patient may follow-up with You eRyna PA-C or Dr. Wilder Arauz at [facility] in 2-3 weeks following discharge. ) Nonstaff,Physician [Primary Care Provider] - 1-2 days Activity/Diet/Wound Care/Special Instructions: Discharging RN - Please call [facility] at [phone] once discharged to notify staff to expect patient. Call [facility] to arrange ambulance transport - [phone] and send form with patient. Form is on the chart. 1. Patient to remain nonweightbearing on the left lower extremity 2. Keep dressing over the left hip clean, dry, and intact 3. Patient may shower without a dressing over the incision sites in 72 hours if there is no active drainage 4. May plan ice for comfort support as needed for the left lower extremity 5. Do not soak in a tub Discharge Disposition: HOME SELF-CARE
[2021-01-15 14:11] VITALS: BP 155/76; PULSE 58; TEMP 98
[2021-01-15] MEDS: ACETAMINOPHEN TAB 325 MG TAB PO PRN (14:58)
[2021-01-15] MEDS ORDERED: LORazepam 0.5 MG TAB PO ONE (18:25)
--- NOTE | 2021-01-15 19:40 | P.PN ---
Progress Note - Text Progress Note Date: 01/15/21 - Chief Complaint Fall with fracture This is a 85-year-old patient, who per the EMS was called out and found the patient in a supine position up on the floor in his apartment. Patient was discovered in the supine position on the floor in his apartment by the staff that they started calling out for help. No outward signs of trauma. He denied any neck pain and head pain and because of memory issues patient could not recall what happened. Patient's son is at the bedside in the hospital. Patient's chronic stable medical conditions include dementia, GERD, Parkinson's disorder, osteoarthritis, prostate cancer. Patient at the baseline does use a walker. Able to recognize family. Needs prompting for a feeding. Cor status is DO NOT RESUSCITATE. Patient's Sabra is the POA. Son is also listed on the same. Patient somewhat tired. Unable to give much of a history currently. January 12: Yesterday patient underwent ID screw placement. Closed reduction. Laying in bed. Tired. On seeing occasional questions. Barely eating. Discussed with skilled nursing case manager about discharge planning. Looks like patient returning to [facility] with hospice tomorrow January 13: Laying in bed. Pending to go down to the assisted living with hospice. No oral intake. Getting maintain his IV fluids. at the bedside. Care was discussed length with her. Questions answered. Hospice approach was discussed. January 14: Laying in bed. More awake today. Also simple questions. Comfortable. Minimal oral intake. January 15: Laying in bed. With more awake today. Eating some. Appears comfortable. Son at the bedside. Patient be getting transferred to assisted living today. Review of systems: Patient not communicating much Current medications reviewed in today's records Past medical history to include: Dementia, GERD, osteoarthritis, Parkinson disorder, gait dysfunction uses a walker, constipation, history of diverticulitis with bowel resection, prostate cancer, glaucoma anxiety depression Social history: Patient smoked for 40 years about a pack a day stopped in 1985. Alcohol rarely. . Retired Family history: Breast cancer Physical examination: VITAL SIGNS: 98, 58, 16, 155/76, 98% on 4 L GENERAL: Laying in bed, tired, more awake EYES: Pupils equal. Conjunctiva normal. HEENT: External appearance of nose and ears normal, oral cavity grossly normal. NECK: JVD not raised; masses not palpable. HEART: First and second heart sounds are normal; no edema. LUNGS: Respiratory rate normal; decreased breath sounds. ABDOMEN: Soft, nontender, liver spleen not palpable, no masses palpable. Gonzales catheter PSYCH: Answering some simple questions MUSCULAR skeletal: Evidence of OA in multiple joints. Limited range of motion of the left hip. Dressing over left hip. INVESTIGATIONS, reviewed in the clinical context: January 12: WBC 11.6 hemoglobin 11.9 platelets 179 WBC 8.3 hemoglobin 13.4 platelets 211 potassium 3.9 BUN 23 creatinine 1.01 UA trace protein EKG tracing personally reviewed by me-paced rhythm , rate 62, Chest x-ray film personally reviewed by me-cardiomegaly. Pacemaker CT brain: Age-related atrophy and chronic small vessel ischemic changes. X-ray hip complete left: Acute comminuted ID fractured left femur. No dislocation. Assessment and plan: -Acute left femur fracture secondary to fall. No dislocation. IT screws placement. Closed reduction -Idiopathic Parkinson's disease Sinemet 2500 one tablet by mouth twice a day -Hyperlipidemia Lipitor 80 mg daily at bedtime -GERD Nexium 40 mg daily -Chronic idiopathic insomnia Seroquel 75 mg daily at bedtime -Depression Effexor XL 75 mg a day -Chronic constipation On laxatives -Chronic gait dysfunction, to baseline uses a walker Fall precautions -Advanced cognitive impairment, known vascular dementia -DO NOT RESUSCITATE Patient be discharged to assisted living today. He will be enrolled into hospice-type. Comfort feeding.
== END 2021-01-15 19:03 | disposition home or self-care (01) | DRG 482 ==
LOC: EC 05:41 → 4SSUR 08:11
PROVIDERS: ADMIT Orthopaedic Surgery Orthopaedic Surgery of the Spine; ATTEND Orthopaedic Surgery Orthopaedic Surgery of the Spine
PROC: 0QS736Z Reposition Left Upper Femur with Intramedullary Internal Fixation Device, Percutaneous Approach (ICD-10-PCS; principal; 2021-01-10)
DX: S72.142A Displaced intertrochanteric fracture of left femur, initial encounter for closed fracture (principal); Z20.822 Contact with and (suspected) exposure to COVID-19; K21.9 Gastro-esophageal reflux disease without esophagitis; M19.90 Unspecified osteoarthritis, unspecified site; F01.50 Vascular dementia, unspecified severity, without behavioral disturbance, psychotic disturbance, mood disturbance, and anxiety; Z66 Do not resuscitate; W19.XXXA Unspecified fall, initial encounter; G20 Parkinson's disease; E78.5 Hyperlipidemia, unspecified; F32.9 Major depressive disorder, single episode, unspecified; F41.9 Anxiety disorder, unspecified; I10 Essential (primary) hypertension; F51.01 Primary insomnia; I27.20 Pulmonary hypertension, unspecified; K59.09 Other constipation; I49.5 Sick sinus syndrome; Z79.82 Long term (current) use of aspirin; Z79.899 Other long term (current) drug therapy; Z79.02 Long term (current) use of antithrombotics/antiplatelets; Z95.0 Presence of cardiac pacemaker; Y92.009 Unspecified place in unspecified non-institutional (private) residence as the place of occurrence of the external cause; Z79.01 Long term (current) use of anticoagulants; Z85.46 Personal history of malignant neoplasm of prostate; Z86.73 Personal history of transient ischemic attack (TIA), and cerebral infarction without residual deficits; Z87.891 Personal history of nicotine dependence; Z90.79 Acquired absence of other genital organ(s); Z90.49 Acquired absence of other specified parts of digestive tract; Z80.3 Family history of malignant neoplasm of breast
CPT/HCPCS: 36415; 70450; 71045; 73501; 73502; 80053; 81003; 85025; 85610; 85730; 87635; 88305; 88311; 93005; 93306; 96374; 96375; 99285